=== PATIENT | male | born 1955 | race Caucasian/White ===

== ENCOUNTER → 2020-02-05 | Outpatient (CLI) | payer BC ==
[~2020-02-05] MED LIST: ACET65TA PO; ALLOPOW4 PO; ASPIRIN PO; BAYE325T12 PO; CARV25TA PO; CARVEDILOL PO; COUM1TAB17; COUM1TAB17 PO; DICL1GEL3 TOP; ELIQ5TAB PO; FURO20TA PO; FURO40TA2 PO; GABA-843 PO; LISINOPRIL PO; MAG-TAB PO; MAGN64TASA PO; NEUR300C PO; OXYC1CON PO; OXYC1TAB23 PO; PERC5TAB12 PO; PERC5TAB8; PRADAXA PO; PRIL20CA PO; PRIN10TA; SPIR-10 PO; SPIROLACTONE PO; ZEST1TAB4 PO; ZYLO300T6 PO
== END ==
LOC: M LABSMTC 11:02
PROVIDERS: ATTEND Anesthesiology
DX: Z01.812 Encounter for preprocedural laboratory examination (principal); Z20.828 Contact with and (suspected) exposure to other viral communicable diseases
CPT/HCPCS: C9803; U0003

== ENCOUNTER 2020-02-10 07:28 | Inpatient (IN) | payer MEDICARE ==
[2020-02-10] VITALS (7 sets, daily range): BP systolic 105–108; BP diastolic 65–69
[~2020-02-10] VITALS: Ht 177.8 cm; Wt 113.9 kg
[~2020-02-10 07:28] MED LIST changes: +LIDOCAINE 1% MDV 20ML VIAL SQ PRN; +LR 1,000 ML IV ONE; -PERC5TAB12 PO
[2020-02-10] MEDS ORDERED: fentaNYL 100 MCG/2 ML INJECTION (J3010) As Ordered ONE ×2 (08:11→08:32)
[2020-02-10] MEDS ORDERED: propofoL 500 MG/50 ML VIAL As Ordered ONE (08:11)
[2020-02-10] MEDS ORDERED: LIDOCAINE 2% 100MG/5ML SDV (FOR ANES.) As Ordered ONE (08:12)
[2020-02-10] MEDS ORDERED: dexameTHASONE 4 MG/ML 1ML VIAL (J1100 PER 1MG) As Ordered ONE ×3 (08:12→10:21)
[2020-02-10] MEDS ORDERED: MIDAZOLAM INJ 2MG/2ML VIAL (J2250 PER 1MG) As Ordered ONE ×2 (08:12→08:32)
[2020-02-10] MEDS ORDERED: ONDANSETRON 4MG/2ML VIAL As Ordered ONE (08:12)
[2020-02-10] MEDS ORDERED: ceFAZolin 2 GM/D5W 50 ML IV BAG (J0690 PER 500MG) As Ordered ONE (08:47)
[2020-02-10] MEDS ORDERED: VANCOMYCIN 1000MG/20ML VIAL As Ordered ONE (08:47)
[2020-02-10 08:54] LABS: HEMATOCRIT 41.5 % (42.0-52.0); HEMOGLOBIN 13.2 g/dl (13.5-17.5); MEAN CORPUSCULAR HEMOGLOBIN 32.3 pg (27.0-33.0); MEAN CORPUSCULAR HGB CONC 31.8 g/dl (32.0-36.5); MEAN CORPUSCULAR VOLUME 101.5 fl (80.0-96.0); PLATELET COUNT, AUTOMATED 170 10^3/uL (150-450); RED BLOOD COUNT 4.09 10^6/uL (4.30-6.10); WHITE BLOOD COUNT 5.1 10^3/uL (4.0-10.0)
[2020-02-10 09:06] LABS: ALBUMIN 3.7 GM/DL (3.2-5.2)
[2020-02-10] MEDS ORDERED: TRANEXAMIC ACID 100 MG/ML 10ML VIAL As Ordered ONE ×2 (09:16→12:17)
[2020-02-10] MEDS ORDERED: KETOROLAC 60MG 2ML VIAL As Ordered ONE (09:16)
[2020-02-10] MEDS ORDERED: BUPIVACAINE/EPIN 0.5% 30 ML VIAL As Ordered ONE (09:17)
[2020-02-10] MEDS ORDERED: ceFAZolin 1GM VIAL (J0690 PER 500MG) As Ordered ONE (09:17)
[2020-02-10 09:22] LABS: ERYTHROCYTE SEDIMENTATION RATE 22 mm/hr (0-20)
[2020-02-10 09:26] LABS: PROTHROMBIN TIME 13.4 SECONDS (11.8-14.0)
[2020-02-10 09:33] LABS: APPEARANCE, URINE CLEAR (CLEAR); BACTERIA, URINE AUTO 1+ (NEGATIVE); BILIRUBIN, URINE AUTO NEGATIVE (NEGATIVE); BLOOD, URINE BLOOD NEGATIVE (NEGATIVE); COLOR, URINE YELLOW (YELLOW); GLUCOSE, URINE (UA) AUTO NEGATIVE (NEGATIVE); KETONE, URINE AUTO NEGATIVE (NEGATIVE); LEUKOCYTE ESTERASE, URINE AUTO 1+ (NEGATIVE); MUCUS, URINE SMALL (NEGATIVE); NITRITE, URINE AUTO NEGATIVE (NEGATIVE); PROTEIN, URINE AUTO NEGATIVE (NEGATIVE); RBC, URINE AUTO 1 /HPF (0-3); SPECIFIC GRAVITY URINE AUTO 1.009 (1.002-1.035); SQUAMOUS EPITHELIAL CELL UR AU 2 /HPF (0-6); UROBILINOGEN, URINE AUTO 0.2 mg/dL (0.0-2.0); WBC, URINE AUTO 9 /HPF (0-3)
[2020-02-10] MEDS ORDERED: MORPHINE 2 MG/ML 1ML VIAL (J2270) As Ordered ONE (09:34)
[2020-02-10] MEDS ORDERED: VANCOMYCIN HCL 1,000 MG, VIAL MATE ADAPTER 1 EACH in D5W 250 ML IV ONE (10:00)
[2020-02-10] MEDS ORDERED: MORPHINE 2 MG/ML 1ML VIAL (J2270) IM ONE (10:00)
[2020-02-10] MEDS ORDERED: oxyCODONE 10 MG CR TAB PO ONE (10:00)
[2020-02-10] MEDS ORDERED: PREGABALIN 50 MG CAP (LYRICA) PO ONE (10:00)
[2020-02-10] MEDS ORDERED: ceFAZolin SOD 2 GM in IV 1 EA IV ONE (10:00)
[2020-02-10] MEDS ORDERED: ACETAMINOPHEN *IV* 1,000 MG IV ONE ×2 (10:00)
[2020-02-10] MEDS ORDERED: BUPIVACAINE/EPIN 0.25% 30 ML VIAL As Ordered ONE (10:06)
[2020-02-10 10:36] LABS: TOTAL 25(OH) VITAMIN D 22.5 NG/ML (30.0-100.0)
[2020-02-10] MEDS ORDERED: EPINEPHrine INJ 1 MG/ML 1ML AMP ONE (11:02)
[2020-02-10] MEDS ORDERED: dexameTHASONE 10MG/1ML VIAL PRES.FREE (J1100 PER 1MG) ONE (11:02)
[2020-02-10] MEDS ORDERED: ROPIvacaine 0.5% 30ML INJECTION (J2795 PER 1MG) ONE (11:02)
[2020-02-10] MEDS ORDERED: ACETAMINOPHEN 1000MG 100ML IV BTL (OFIRMEV) (J0131 PER 10MG) As Ordered ONE (11:47)
[2020-02-10] MEDS ORDERED: ONDANSETRON 4MG/2ML VIAL IV PRN ×2 (12:45)
[2020-02-10] MEDS ORDERED: MORPHINE 2 MG/ML 1ML VIAL (J2270) IV PRN ×2 (12:45)
[2020-02-10] MEDS ORDERED: fentaNYL 100 MCG/2 ML INJECTION (J3010) IV PRN (12:45)
[2020-02-10] MEDS ORDERED: traMADol 50 MG TAB PO PRN (12:45)
[2020-02-10] MEDS ORDERED: METOCLOPRAMIDE INJ 10MG/2ML VIAL (J2765 PER 1) IV PRN (12:45)
[2020-02-10] MEDS ORDERED: MORPHINE 4 MG/ML 1ML VIAL/SYRINGE (J2270) IV PRN (12:45)
[2020-02-10] MEDS ORDERED: LR 1,000 ML IV SCH ×2 (12:45)
[2020-02-10] MEDS ORDERED: oxyCODONE 5MG TAB PO PRN (12:45)
[2020-02-10] MEDS ORDERED: PERCOCET 5MG/325MG TAB PO PRN ×2 (12:45)
[2020-02-10 12:58] LABS: HEMOGLOBIN A1c 5.4 %
[2020-02-10] MEDS ORDERED: TRANEXAMIC ACID INJection 1,000 MG in NS 100 ML IV ONE (13:00)
--- NOTE | 2020-02-10 17:38 | HPEPDOC ---
General Date of Admission Feb 10, 2020 at 07:28 Date of Service: Feb 10, 2020 Attending Physician: CECILIO SCOTT MD Chief Complaint The patient is a 64-year-old male admitted with a reason for visit of Left Knee Osteoarthritis. Source: Patient Exam Limitations: No limitations History of Present Illness 64 yo M with a history of CAD, A fib on eliquis, HTN, morbid obesity, ABHISHEK not on CPAP, CHF, GERD and OA with history of multiple LE hip and knee replacements who is admitted postop L knee replacement and medicine is consulted for postop medical management. He is comfortable, without any complaints, pain is well cont rolled at this time. Home Medications Scheduled Allopurinol (Zyloprim) 300 Mg Tab, 300 MG PO DAILY, (Reported) Apixaban (Eliquis) 5 Mg Tablet, 5 MG PO BID, (Reported) Aspirin (Aspirin) 325 Mg Tablet, 325 MG PO DAILY, (Reported) Carvedilol (Carvedilol) 25 Mg Tab, 25 MG PO BID, (Reported) Diclofenac Sodium (Diclofenac Sodium) 1% 100GM Gel..gram., Unknown Dose TOP PRN, (Reported) Apply to area of pain Furosemide (Furosemide) 40 Mg Tab, 40 MG PO DAILY, (Reported) Gabapentin (Gabapentin) 300 Mg Capsule, 300 MG PO BID, (Reported) Spironolactone (Spironolactone) 25 Mg Tab, 12.5 MG PO DAILY, (Reported) Allergies Coded Allergies: midazolam (Verified Allergy, Unknown, states that he does not want to have due to memory loss effe, 02/07/20) Past Medical History Medical History morbid obesity CAD Afib on eliquis CHF HTN ABHISHEK, cannot tolerate CPAP GERD Surgical History L hip repair R hip repair x 2 laminectomy x 2 left heart catheterization Social History * Smoker: Denies Alcohol: Denies Drugs: denies Recent Travel/Sick Contacts: Reports: Recent travel Psychosocial History: No pertinent psych hx A-FIB/CHADSVASC A-FIB History Current/History of A-Fib/PAF?: Yes Current PO Anticoag Therapy: Yes Review of Systems Constitutional: Denies: Chills, Fever, Night Sweats Eyes: Denies: Pain, Vision change ENT: Denies: Head Aches, Ear Pain, Dysphagia Skin: Denies: Rash, Lesions, Breakdown Pulmonary: Denies: Dyspnea, Cough Cardiovascular: Denies: Chest Pain, Palpitations, Orthopnea, Paroxysmal Noc. Dyspnea, Lt Headedness Gastrointestinal: Denies: Nausea, Vomiting, Abdominal Pain, Diarrhea Genitourinary: Denies: Dysuria, Frequency, Incontinence, Retention Hematologic: Denies: Bruising, Bleeding Excessively Endocrine: Denies: Polydipsia, Polyphagia, Polyuria, Heat Intolerance, Cold Intolerance, Other Endocrine Sx Musculoskeletal: Reports: Joint Pain (L knee pain) Neurological: Denies: Weakness, Numbness, Change in speech, Confusion Psych: Reports: Mood Normal; Denies: Depression, Memory Issues Physical Examination General Exam: Positive: Alert, No Acute Distress, Other (obese) Eye Exam: Positive: PERRLA, Conjunctiva & lids normal, EOMI; Negative: Sclera icteric ENT Exam: Positive: Atraumatic, Mucous membr. moist/pink, Pharynx Normal Neck Exam: Positive: Supple; Negative: JVD, thyromegaly Chest Exam: Positive: Clear to auscultation, Normal air movement Heart Exam: Positive: Irregular Rhythm, Normal S1, Normal S2; Negative: Murmurs, Rubs Telemetry: Positive: Atrial fibrillation Abdomen Exam: Positive: Normal bowel sounds, Soft; Negative: Tenderness, Hepatospenomegaly Extremity Exam: Positive: Normal pulses, Other (L knee with post-op bandaging.); Negative: Clubbing, Cyanosis, Edema Skin Exam: Positive: Nl turgor and temperature; Negative: Breakdown, Lesion Neuro Exam: Positive: Normal Speech, Cranial Nerves 3-12 NL, Other (full strength in RLE and bilateral UE, while LLE was deferred post-op) Psych Exam: Positive: Mental status NL, Mood NL, Oriented x 3 Vital Signs Vital Signs Date Time Temp Pulse Resp B/P (MAP) Pulse Ox O2 Delivery O2 Flow Rate FiO2 02/10/20 14:15 97.3 87 15 106/65 (79) 100 Room Air 02/10/20 09:50 2 Laboratory Data Labs 24H Laboratory Tests 2 02/10/20 08:18: Nucleated Red Blood Cells % (auto) 0.0, Erythrocyte Sedimentation Rate 22H, Prothrombin Time 13.4, Prothromb Time International Ratio 1.00, Estimated Mean Plasma Glucose 108, Hemoglobin A1c 5.4, Albumin 3.7, 25-Hydroxy Vitamin D Total 22.5L 02/10/20 09:00: Urine Color YELLOW, Urine Appearance CLEAR, Urine pH 5.0, Urine Specific [place] 1.009, Urine Protein NEGATIVE, Urine Glucose (Auto)(UA) NEGATIVE, Urine Ketones (Auto) NEGATIVE, Urine Blood NEGATIVE, Urine Nitrite NEGATIVE, Urine Bilirubin NEGATIVE, Urine Urobilinogen 0.2, Urine Leukocyte Esterase (Auto) 1+H, Urine WBC (Auto) 9H, Urine RBC (Auto) 1, Urine Hyaline Casts (Auto) 4, Urine Bacteria (Auto) 1+H, Urine Squamous Epithelial Cells 2, Urine Mucus (Auto) SMALL, Urine Sperm (Auto) CBC/BMP Laboratory Tests 02/10/20 08:18 Microbiology Microbiology 02/10/20 Wound Culture, Received Pending 02/10/20 Anaerobic Culture, Received Pending Assessment/Plan 64 yo M with a history of CAD, A fib on eliquis, HTN, morbid obesity, ABHISHEK not on CPAP, CHF, GERD and OA with history of multiple LE hip and knee replacements who is admitted postop L knee replacement, doing well at this time. L knee osteoarthritis s/p total joint arthroplasty: -pain is well controlled at this time with both PO PRN percocet and tramadol ordered, as well as PRN IV morphine per primary surgery team -on full dose eliquis -PT/OT -surgery team is primary managing patient Afib: -continue home eliquis and beta kai that will be restarted tomorrow CHF: imagine it is HFrEF, patient actually confirmed that he had a recent preop TTE with Dr. Magaña where EF was 28% -currently holding daily loop diuretic post op, actually receiving fluids -will continue aldactone tomorrow morning, and make decision on loop diuretic then depending on renal function and BP -will plan to continue beta kai as well tomorrow morning GERD: -continue PPI ABHISHEK: -does not tolerate CPAP, if hypoxemic overnight, may offer supplemental O2 HTN: -continue coreg BID tomorrow Gout: -continue allopurinol, starting tomorrow DVT ppx: eliquis Plan / VTE VTE Prophylaxis Ordered?: Yes CECILIO SCOTT MD Feb 10, 2020 17:10
[2020-02-10] MEDS: ceFAZolin SOD 2 GM in IV 1 EA IV SCH (18:20)
[2020-02-11 02:00] VITALS: BP 109/64
[2020-02-11] MEDS: ceFAZolin SOD 2 GM in IV 1 EA IV SCH ×2 (03:05→09:40)
[2020-02-11] MEDS: ACETAMINOPHEN TAB 650MG DOSE (2X325MG) PO PRN ×2 (05:32→11:28)
[2020-02-11 06:00] VITALS: BP 124/76
[2020-02-11] MEDS ORDERED: PERC5TAB12 PO (06:01)
[2020-02-11 07:44] LABS: HEMATOCRIT 37.8 % (42.0-52.0); HEMOGLOBIN 12.4 g/dl (13.5-17.5); MEAN CORPUSCULAR HEMOGLOBIN 33.5 pg (27.0-33.0); MEAN CORPUSCULAR HGB CONC 32.8 g/dl (32.0-36.5); MEAN CORPUSCULAR VOLUME 102.2 fl (80.0-96.0); PLATELET COUNT, AUTOMATED 160 10^3/uL (150-450)
[2020-02-11 08:11] LABS: ALBUMIN 3.3 GM/DL (3.2-5.2); BILIRUBIN,TOTAL 0.5 MG/DL (0.2-1.0); CALCIUM LEVEL 8.8 MG/DL (8.8-10.2); CREATININE FOR GFR 1.83 MG/DL (0.70-1.30); GLOMERULAR FILTRATION RATE 39.6 (>49); POTASSIUM SERUM 4.2 MEQ/L (3.5-5.1); TOTAL PROTEIN 6.6 GM/DL (6.4-8.2)
[2020-02-11 09:00] VITALS: BP 107/61
[2020-02-11] MEDS ORDERED: dexameTHASONE 20MG/5ML VIAL (J1100 PER 1MG) IV ONE (09:00)
[2020-02-11] MEDS ORDERED: APIXABAN 5 MG TAB (ELIQUIS) PO SCH (09:00)
[2020-02-11] MEDS: CARVedilol 12.5 MG TAB PO SCH ×2 (09:00→09:38)
[2020-02-11] MEDS ORDERED: SPIRONOLACTONE 12.5MG PER 1/2 TABLET PO SCH (09:00)
[2020-02-11] MEDS ORDERED: allopurinoL 300 MG TAB PO SCH (09:00)
[2020-02-11] MEDS ORDERED: GABAPENTIN 300 MG CAP PO SCH (09:00)
--- NOTE | 2020-02-11 17:37 | IPNPDOC ---
Text Note Date of Service The patient was seen on 02/11/20. NOTE Physical Examination General: Obese, NAD Eye: PERRLA, Conjunctiva & lids normal, EOMI, anicteric ENT: Atraumatic, Mucous membr. moist/pink, Pharynx Normal Neck : Supple, no JVD or thyromegaly Chest: Clear to auscultation, Normal air movement Heart: Irregular Rhythm, Normal S1, Normal S2, no mrg Telemetry: Rate controlled Atrial fibrillation Abdomen : Obese, Normal bowel sounds, Soft, NTND Extremity: L knee with post-op strip bandaging, c/d/i, no oozing. No significant edema Neuro: Normal Speech, Cranial Nerves 3-12 NL Psych: Mental status NL, Mood NL, Oriented x 3 Labs: Reviewed. reactive WBC increase to 10, Cr at 1.93 per recent baseline. Assessment/Plan 64 yo M with a history of CAD, A fib on eliquis, HTN, morbid obesity, ABHISHEK not on CPAP, CHF, GERD and OA with history of multiple LE hip and knee replacements who is admitted postop L knee replacement, doing well at this time and being discharged home by surgery. L knee osteoarthritis s/p total joint arthroplasty: -pain is well controlled per primary surgery team -on full dose eliquis -PT/OT Afib: -continue home eliquis and beta kai CHF: imagine it is HFrEF, patient actually confirmed that he had a recent preop TTE with Dr. Magaña where EF was 28% -May continue aldactone and lasix on discharge GERD: -continue PPI ABHISHEK: -does not tolerate CPAP HTN: -continue coreg BID Gout: -continue allopurinol DVT ppx: eliquis VS,Fishbone, I+O VS, Fishbone, I+O Laboratory Tests 02/11/20 07:17 Vital Signs Date Time Temp Pulse Resp B/P (MAP) Pulse Ox O2 Delivery O2 Flow Rate FiO2 02/11/20 09:00 107/61 02/11/20 06:00 97.9 92 18 96 Room Air 02/10/20 09:50 2 I&O- Last 24 Hours up to 6 AM 02/11/20 06:00 Intake Total 1870 ml Output Total 900 ml Balance 970 ml CECILIO SCOTT MD Feb 11, 2020 17:37
--- NOTE | 2020-02-12 15:54 | IPN ---
DATE: 02/10/2020 Patient presents for a left total knee arthroplasty. This is a patient I am coordinating with [facility]. I was asked to partake in this patient's care due to severe valgus deformity of the patient's bilateral knees as well as prior knee surgeries. I last saw the patient in my office back in the summer of 2018, and the patient was indicated for bilateral knee arthroplasties. We decided to do these in stage fashion once the patient was medically optimized. The patient has since undergone medical optimization. In fact, he has been able to reduce his weight and lost about 70 pounds since I last saw him. He continues to have daily pain with his bilateral knees. Both are equally bad. Both knees have aching and throbbing sensations. He has difficulty ambulating short distances without significant pain and feelings that his knee is giving way and instability. Patient underwent medical optimizations, now optimized by both his primary care physician (PCP) as well as sales review clerk for surgery. Patient's surgery was originally also delayed due to the COVID-19 pandemic, and now that surgeries have restarted, we are proceeding to surgery. The patient's care is being coordinated with Dr. Fidel Garcia, who is his primary orthopedist. I have re-evaluated the patient today in the preoperative area. The patient continues to complain of daily pain with ambulation, and he is very much excited about proceeding to surgery. Patient's bilateral lower extremities were evaluated. Leg roll was negative bilaterally. Patient's bilateral knees were then evaluated. Range of motion was from 5 to about 100 degrees bilateral. There is a clinical valgus deformity. Patient had severe crepitus as well as pain throughout the entire range of motion. He had severe medial and lateral joint line pain. Bilateral calves were soft and nontender. Some vascular changes were present distally; however, these were not seen around his knees. Extensor hallucis longus (EHL), flexor hallucis longus (FHL), gastroc-soleus (GS), tibialis anterior (TA) were all intact. Preoperative labs were reviewed. Patient's white blood cell count is 5.1, hemoglobin 13.9, hematocrit 41.5. INR is 1.0. Images were reviewed. The patient has end-stage bilateral knee valgus osteoarthritis and prior screws from two prior patellar procedures. ASSESSMENT: Patient is a 64-year-old male with severe bilateral knee valgus osteoarthritis. PLAN: Patient was re-educated on his diagnosis. He was re-educated on protocol, activity modification further treatment with Tylenol, nonsteroidal anti-inflammatory drugs (NSAIDs), activity modifications, the appropriate use of corticosteroid injection limitation as well as the role of physical therapy. We discussed at length the risks and benefits of arthroplasty, including the risk of infection, which is heightened in this patient due to his prior surgeries. We discussed risk of blood clots, pulmonary emboli. We discussed the risk of stiffness, instability, patellar maltracking, patellar dislocations, aseptic loosening, septic loosening, nerve/vessel damage, persistent pain, increased pain, loss of function, stiffness, instability and need for repeat surgeries, possible loss of limb and/or life. The patient is willing to undergo surgery, and the surgery will be planned for later this morning. DUNCAN
[2020-02-18 01:12] LABS: COTININE <1.0 ng/mL (.); NICOTINE <1.0 ng/mL (.); TRANSFERRIN 222 mg/dL (177-329)
--- NOTE | 2020-03-01 16:33 | RO ---
DATE OF OPERATION: 02/10/2020 PREOPERATIVE DIAGNOSIS: Left knee valgus osteoarthritis POSTOPERATIVE DIAGNOSIS: Left knee valgus osteoarthritis FINDINGS: Severe valgus osteoarthritis of the patient's left knee. PROCEDURE: Left knee total knee arthroplasty and removal of prior knee hardware. SURGEON: Karla Rodas MD WASHING MACHINE OPERATOR: Otis Mayen MD ANESTHESIA: Staff ESTIMATED BLOOD LOSS: 50 ml DRAINS: None. POSTOP SPECIMEN: Bone cuts, as well as one culture from the screw that was removed. INDICATIONS FOR PROCEDURE: The patient is a 64-year-old male, who has bilateral knee end-stage osteoarthritis. The patient previously underwent patellar realignment surgery on both of his knees and has screws in both of his knees. The patient has failed conservative therapies and has been indicated by both his primary orthopedic surgeons, Dr. Fidel Garcia and myself in the arthroplasty. I was asked to partake in this patients care due to the extent of the patient's deformity. Dr. Fidel Garcia requested that I help with the patient's case due to my additional training in joint reconstructive surgery. PRESCRIPTION OF PROCEDURE: The patient was identified in preop area, site was marked and consent was obtained. The patient was brought into the operative theatre. Spinal anesthesia was administered and the patient was prepped and draped in the standard sterile fashion. A time-out was performed. It was confirmed that the patient received Ancef, vancomycin, TXA and Decadron. A tourniquet was insufflated and central incision was then made. Dissection was carried down to capsule and medial parapatellar arthrotomy was then performed. The knee was entered. The patient had tricompartmental end-stage osteoarthritis, ALC, PCL, medial and lateral menisci were resected. While I worked on this exposure, Dr. Mayen was able to localize the area of the screw, placed distal and medial to the patient's tibial tubercle and the screw was removed and then cultured. Attention was then turned to the femur. I entered the femur with a drill followed by an intramedullary drill guide. A 63 valgus cut was performed on the femur. Attention was then turned to the tibia. The tibia was cut taking 9 mm off the lesser affected medial side using extra measuring instrumentation. Extension gaps were then found to be stable with a 9 mm waffle block. Attention was then returned to the femur. The femur was sized to a size 6 femur and pinned in appropriate external rotation. Care was taken to not internally rotate due to the posterolateral condylar wear. A 6 femoral cut was then performed and flexion gap was also found to be stable with a 9 mm waffle block. The box cut was then performed. A trial femur was inserted. The tibia was incised to a size 6 tibia and the tibia was floated with a trial 9 tibia. I had excellent range of motion, excellent stability and adequate patellar tracking. However, I had mild recurvatum. This was then up-sized to an 11 poly; and with an 11 poly, the patient's range of motion was from 0 to 130 degrees with excellent stability throughout the entire range of motion and adequate patellar tracking. A small lateral release was then performed and patellar tracking was great. The patella was then resurfaced to a size 38 patella and with old trials and the knee had excellent range of motion, excellent stability and great patellar tracking. The tibia was then completed. I did opt to use a mini stem extension incase a TS insert would be needed due to the patient's valgus deformity, as well as trying to bypass the hole from the removal of the patient's screw. At that point, all trials were removed. The knee was thoroughly irrigated. The final implants were implanted in. My anesthetic cocktail was injected in the posterior capsule. Once the cement was about to cure, I retrial the poly and 11 poly was selected. A final 11 PS poly was inserted with all implants and the patient had excellent range of motion, excellent stability and great patellar tracking. The knee was then thoroughly re-irrigated. The capsule was closed with 1 Vicryl and 1 Quill suture. 2-0 Vicryl was used for subcutaneous and elsie were used for skin. The patient was placed in a standard sterile dressing and transferred back in stable condition. Implants: Implant [place] [employer] 6 PS femur, 6 universal tibia with a stem extension, 11 mm poly and a 38 asymmetric patella. Postoperative plan: The patient is weightbearing as tolerated. The patient will be placed back on his Eliquis for deep venous thrombosis (DVT) prophylaxis. The patients pain will be controlled with IV and oral pain medications. The patient is set for an expected discharge on postop day 1, versus postop day 2. He will be mobilized with physical therapy. MTDD
--- NOTE | 2020-03-06 10:58 | REP ---
LEFT KNEE SERIES CLINICAL: Postoperative assessment. TECHNIQUE: AP and cross-table lateral views of the left knee. FINDINGS: Patient is status post left knee replacement. Satisfactory position and appearance to the femoral and tibial components, Overlying postsurgical changes noted. IMPRESSION: Status post left knee replacement. MTDD
--- NOTE | 2020-03-06 12:53 | DSES ---
DATE OF ADMISSION: 02/10/2020 DATE OF DISCHARGE: 02/11/2020 ATTENDING: Dr. Evin Rodas. ADMITTING DIAGNOSIS: Osteoarthritis left knee. OTHER DIAGNOSES: Atrial fibrillation, coronary artery disease, hypertension, sleep apnea, congestive heart failure, gastric reflux disease. DISCHARGE DIAGNOSIS: Osteoarthritis left knee; status post left total knee arthroplasty. OPERATION PERFORMED: Left total knee arthroplasty. HISTORY OF PRESENT ILLNESS: This is a 64-year-old male patient with progressively worsening left knee pain and stiffness. He failed to improve with conservative management and was admitted for elective knee replacement on the left side. He subsequently underwent a left total knee arthroplasty, which was uneventful. He did well in the postoperative period and hospital course was without complication. He was up with physical therapy per their protocol as pain was controlled. On the day of discharge, he was weightbearing as tolerated on his left lower extremity. He will use DENNIS stockings for 30 days postoperatively for DVT prophylaxis. He will restart his Eliquis per his professional skater. He will also use that for DVT prophylaxis. He will resume his preoperative medications and diet. He will use oral pain medications for pain control. He will follow-up in our office in 10-14 days for surgical follow-up. Please refer to the medical record for further details. DUNCAN
== END 2020-02-11 12:30 | disposition home health service (06) | DRG 470 ==
LOC: M OR 07:28 → M MS5PR 14:10
PROVIDERS: ADMIT Student in an Organized Health Care Education/Training Program; ATTEND Student in an Organized Health Care Education/Training Program
PROC: 0SRD0JZ Replacement of Left Knee Joint with Synthetic Substitute, Open Approach (ICD-10-PCS; principal; 2020-02-10 09:00)
DX: M17.12 Unilateral primary osteoarthritis, left knee (principal); I25.10 Atherosclerotic heart disease of native coronary artery without angina pectoris; I48.91 Unspecified atrial fibrillation; Z79.01 Long term (current) use of anticoagulants; I11.0 Hypertensive heart disease with heart failure; E66.01 Morbid (severe) obesity due to excess calories; G47.33 Obstructive sleep apnea (adult) (pediatric); K21.9 Gastro-esophageal reflux disease without esophagitis; I50.9 Heart failure, unspecified; Z79.899 Other long term (current) drug therapy; Z79.82 Long term (current) use of aspirin; Z95.2 Presence of prosthetic heart valve; Z96.641 Presence of right artificial hip joint; Z96.642 Presence of left artificial hip joint; M10.9 Gout, unspecified

== ENCOUNTER → 2020-04-17 | Outpatient (CLI) | payer MEDICARE ==
[~2020-04-17] MED LIST changes: -LIDOCAINE 1% MDV 20ML VIAL SQ PRN; -LR 1,000 ML IV ONE; +PERC5TAB12 PO
[2020-04-17 12:14] LABS: HEMATOCRIT 38.9 % (42.0-52.0); HEMOGLOBIN 12.1 g/dl (13.5-17.5); MEAN CORPUSCULAR HEMOGLOBIN 32.1 pg (27.0-33.0); MEAN CORPUSCULAR HGB CONC 31.1 g/dl (32.0-36.5); MEAN CORPUSCULAR VOLUME 103.2 fl (80.0-96.0); PLATELET COUNT, AUTOMATED 187 10^3/uL (150-450); RED BLOOD COUNT 3.77 10^6/uL (4.30-6.10)
[2020-04-17 12:26] LABS: INR 1.2; PROTHROMBIN TIME 15.5 SECONDS (12.5-14.3)
[2020-04-17 12:40] LABS: ALBUMIN 3.5 GM/DL (3.2-5.2); BILIRUBIN,TOTAL 0.8 MG/DL (0.2-1.0); CALCIUM LEVEL 9.3 MG/DL (8.8-10.2); CREATININE FOR GFR 1.71 MG/DL (0.70-1.30); GLOMERULAR FILTRATION RATE 42.9 (>49); POTASSIUM SERUM 4.3 MEQ/L (3.5-5.1); TOTAL PROTEIN 6.6 GM/DL (6.4-8.2)
[2020-04-17 12:42] LABS: ERYTHROCYTE SEDIMENTATION RATE 25 mm/hr (0-20)
--- NOTE | 2020-04-17 14:39 | REP ---
INDICATION: PRE-OP. COMPARISON: September 11, 2014 TECHNIQUE: Two views.. FINDINGS: The lungs are symmetrically aerated and free of infiltrate. Pleural angles are sharp. Heart is mildly enlarged. Cardiothoracic ratio is 51.4%. The thoracic aorta is tortuous. There are degenerative changes in the thoracic spine. Pulmonary vasculature is not increased. IMPRESSION: Cardiomegaly. Otherwise no acute disease.. <Electronically signed by Rhys Wyatt > 04/17/20 [id number]
--- NOTE | 2020-04-17 18:12 | ECGEPIP ---
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: [facility] : 1955 Requested By: Fidel Cloud @ [facility] Order Number: [id number] Reading MD: Tuan Friedman Measurements Intervals [place] Rate: 78 P: CT: 0 QRS: -68 QRSD: 153 T: 76 QT: 408 QTc: 467 Interpretive Statements Atrial fibrillation with a controlled ventricular response Left anterior fascicular block and right bundle branch block Associated repolarization abnormalities No significant change except for a slower ventricular response, when compared to prior tracing of 09/11/2014 Electronically Signed on 04-17-2020 18:11:34 EST by Tuan Friedman
== END ==
LOC: M LAB 11:18
PROVIDERS: ATTEND Orthopaedic Surgery
DX: Z01.818 Encounter for other preprocedural examination (principal); M17.11 Unilateral primary osteoarthritis, right knee; I51.7 Cardiomegaly

== ENCOUNTER → 2020-04-22 | Outpatient (CLI) | payer MEDICARE | LOC: M LABSMTC 09:12 | PROVIDERS: ATTEND Anesthesiology | DX: Z01.812 Encounter for preprocedural laboratory examination (principal); Z20.828 Contact with and (suspected) exposure to other viral communicable diseases ==

== ENCOUNTER 2020-04-27 10:45 | Inpatient (IN) | payer MEDICARE ==
--- NOTE | 2020-04-26 11:40 | HPE ---
DATE OF ADMISSION: 04/27/2020 ATTENDING PHYSICIAN: Dr. Rodas CHIEF COMPLAINT:: Right knee pain. HISTORY OF PRESENT ILLNESS: Mr. Mendes is a pleasant 64-year-old male with progressively worsening right knee pain and stiffness. He has failed to improve with conservative treatment. He has elected for surgery for his continued symptoms. He has pain with weightbearing activities and his activities of daily living. X-rays of his knee are notable for advanced osteoarthritis of the right knee joint. He has consented for a right total hip arthroplasty by Dr. Rodas. Medical optimization was performed by Dr. Gibson. ALLERGIES: No known drug allergies. CURRENT MEDICATIONS: Carvedilol, Eliquis, gabapentin, furosemide, and spironolactone. MEDICAL HISTORY: 1. Mild high blood pressure. 2. Atrial fibrillation. SURGICAL HISTORY: 1. Lumbar laminectomies in 1988 and 1994. 2. Left and right hip replacement. 3. Knee meniscectomies, bilateral, 1969 and 1970. 4. Left total knee replacement in February of this year. SOCIAL HISTORY: This gentleman is retired. He does not smoke. Rarely drinks alcohol. FAMILY HISTORY: Noncontributory. REVIEW OF SYSTEMS: This patient denies chest pain, heart palpitations, cough, wheezing, difficulty breathing, and shortness of breath. He denies abdominal pain, nausea, vomiting, diarrhea, or constipation. He denies recent upper respiratory infection or urinary tract infection symptoms. He does complain of persistent pain in the right knee. PHYSICAL EXAMINATION: GENERAL: He is a well-nourished, well-developed, in no acute distress alert male patient. He ambulates with a significant limp favoring the right lower extremity. He uses a rolling walker. VITAL SIGNS: He is 5 feet 8-1/2 inches tall, weighs 246.2 pounds. Temperature 96.2, blood pressure 115/70, pulse 63, respirations 12. NECK: Supple without adenopathy or jugular venous distention. No carotid bruits appreciated upon auscultation. LUNGS: Clear to auscultation without rales or wheeze throughout. HEART: Irregular rate and rhythm. ABDOMEN: Bowel sounds were present. EXTREMITIES: Examination of the knee reveals well-healed surgical scar from his radical meniscectomy in the . Otherwise, the skin was intact. He had decreased range of motion due to pain and stiffness. The limb is neurovascularly intact. LABORATORY DATA: EKG showed atrial fibrillation at 96 beats per minute. Chest x-ray showed cardiomegaly; otherwise no acute cardiopulmonary disease processes. Protime 15.5, INR 1.20. Glucose 92, BUN 43, creatinine 1.71. CBC showed red count of 3.77, hemoglobin 12.1, hematocrit 38.9, MCV 103.2, mean corpuscular hemoglobin concentration of 31.1, otherwise within normal limits. with a sedimentation rate of 25. IMPRESSION: Symptomatic osteoarthritis of the right knee joint. PLAN: Consented for a right total knee arthroplasty by Dr. Rodas. ayana CelayaAdena Fayette Medical CenterJocelin
[~2020-04-27] VITALS: Ht 177.8 cm; Wt 111.1 kg
[~2020-04-27 10:45] MED LIST changes: +CelecoXIB 400 MG CAP PO ONE; +LIDOCAINE 1% MDV 20ML VIAL SQ PRN; +LR 1,000 ML IV ONE; +PERCOCET 5MG/325MG TAB PO ONE; +PREGABALIN 75 MG CAP(LYRICA) PO ONE; +ceFAZolin SOD 1 GM in D5W MINI-BAG PLUS 50 ML IV ONE; +ceFAZolin SOD 2 GM in IV 1 EA IV ONE; +fentaNYL 100 MCG/2 ML INJECTION (J3010) IV PRN
[2020-04-27] MEDS ORDERED: ceFAZolin 1GM VIAL (J0690 PER 500MG) As Ordered ONE (10:51)
[2020-04-27] MEDS ORDERED: TRANEXAMIC ACID 100 MG/ML 10ML VIAL As Ordered ONE (12:21)
[2020-04-27] MEDS ORDERED: dexameTHASONE 4 MG/ML 1ML VIAL (J1100 PER 1MG) As Ordered ONE (12:22)
[2020-04-27] MEDS ORDERED: KETOROLAC 60MG 2ML VIAL As Ordered ONE (12:22)
[2020-04-27] MEDS ORDERED: BUPIVACAINE LIPOSOME/PF 1.3% 20ML VIAL (13.3MG/ML)(EXPAREL)(C9290 PER1MG) As Ordered ONE (12:23)
[2020-04-27] MEDS ORDERED: fentaNYL 100 MCG/2 ML INJECTION (J3010) As Ordered ONE (12:24)
[2020-04-27] MEDS ORDERED: ROPIvacaine 0.5% 30ML INJECTION (J2795 PER 1MG) XX ONE (12:30)
[2020-04-27] MEDS ORDERED: dexameTHASONE 10MG/1ML VIAL PRES.FREE (J1100 PER 1MG) XX ONE (12:30)
[2020-04-27] MEDS ORDERED: EPINEPHrine INJ 1 MG/ML 1ML AMP XX ONE (12:30)
[2020-04-27] MEDS ORDERED: VANCOMYCIN 1000MG/20ML VIAL As Ordered ONE (12:59)
[2020-04-27] MEDS ORDERED: ACETAMINOPHEN 500 MG TAB PO ONE (13:00)
[2020-04-27] MEDS ORDERED: ACETAMINOPHEN 1000MG 100ML IV BTL (OFIRMEV) (J0131 PER 10MG) As Ordered ONE (13:42)
[2020-04-27] MEDS ORDERED: PHENYLephrine HCL 500 MCG/5 ML (100MCG/ML) SYRINGE (J2370) As Ordered ONE ×3 (13:45→14:24)
[2020-04-27] MEDS ORDERED: dexameTHASONE 10MG/1ML VIAL PRES.FREE (J1100 PER 1MG) IV ONE (14:00)
[2020-04-27] MEDS ORDERED: LR 1,000 ML IV SCH ×2 (15:30→15:45)
[2020-04-27] MEDS ORDERED: MORPHINE 2 MG/ML 1ML VIAL (J2270) IV PRN (15:30)
[2020-04-27] MEDS ORDERED: oxyCODONE 5MG TAB PO PRN (15:30)
[2020-04-27] MEDS ORDERED: ONDANSETRON 4MG/2ML VIAL IV PRN ×2 (15:30→16:00)
[2020-04-27] MEDS ORDERED: fentaNYL 100 MCG/2 ML INJECTION (J3010) IV PRN (15:30)
[2020-04-27] MEDS ORDERED: METOCLOPRAMIDE INJ 10MG/2ML VIAL (J2765 PER 1) IV PRN (15:30)
[2020-04-27] MEDS ORDERED: traMADol 50 MG TAB PO PRN (15:45)
[2020-04-27] MEDS ORDERED: TRANEXAMIC ACID 100 MG/ML 10ML VIAL IV ONE (15:45)
[2020-04-27] MEDS ORDERED: PERCOCET 5MG/325MG TAB PO PRN ×2 (15:45)
[2020-04-27] MEDS ORDERED: PROMETHAZINE INJ 25 MG/ML VIAL (J2550) IV PRN (16:00)
--- NOTE | 2020-04-27 16:08 | REP ---
INDICATION: POST OP IN PACU COMPARISON: None TECHNIQUE: Two portable postoperative views FINDINGS: The femoral and tibial components of the knee prosthesis are well seated and well approximated. The alignment is near anatomical. There is expected postoperative soft tissue swelling and air densities. IMPRESSION: As above <Electronically signed by Matt Hilliard > 04/27/20 [id number]
[2020-04-27 17:00] VITALS: BP 112/74
[2020-04-27 17:30] VITALS: BP 112/74
[2020-04-27 18:24] VITALS: BP 115/74
--- NOTE | 2020-04-27 18:42 | CR.PDOC ---
General Date of Consultation: Apr 27, 2020 Consultation Chief complaint: Presented to [facility] for elective right knee arthroplasty History of present illness: Patient is a 64-year-old male with a PMHx of HTN, A. fib (on Eliquis), Chronic CHF, Neuropathy who presented to [facility] for an elective right knee arthroplasty. Patient has received outpatient medical clearance from his primary care provider, Dr. Gibson. Hospitalist service was consulted for medical management postoperatively. Currently patient denies any chest pain, shortness of breath, palpitations, nausea, vomiting, abdominal pain, constipation, diarrhea, or urinary discomfort. Patient denies any recent fevers or chills. Past Medical History: HTN, A. 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 Review of Systems: 10 point review of systems complete, all negative otherwise stated in HPI Physical exam: - Vitals: BP [115/74], HR [77], RR [18], Sat [98%RA], Temp [98.4F] - General: Lying in bed, No acute distress, Speaking in full sentences, AAOx3 - HEENT: NC, AT, PERRLA - CVS: RRR, - Murmurs / rubs / gallops - Lungs: Fair air entry bilaterally, No appreciable wheezing / rales / rhonchi - Abdomen: Soft, Non-distended, Non-tender - Extremities: No lower extremity edema, No calf tenderness - Neuro: No focal motor or sensory deficit - Skin: No visible rashes Assessment and Plan: Elective total right knee arthroplasty (POD#0) - Presented to [facility] for elective orthopedic procedure - As received outpatient medical clearance from his primary care provider - Pain control, anticoagulation and physical therapy at the direction of orthopedic surgery HTN - Blood pressure well controlled - Continue with carvedilol with holding parameters - Will resume diuretic therapy within the next 24 hours A. fib - Will continue with rate control with carvedilol with holding parameters - Will resume Eliquis as per orthopedic surgery within 24 hours Chronic CHF - Currently does not exhibit any signs of fluid overload - Will discontinue IV fluids - Will check renal function in AM - Will resume diuretic therapy within the next 24 hours Neuropathy - c/w Gabapentin DVT prophylaxis - As per orthopedic surgery Vital Signs/I&O Vital Signs Date Time Temp Pulse Resp B/P (MAP) Pulse Ox O2 Delivery O2 Flow Rate FiO2 04/27/20 18:24 98.4 77 18 115/74 (88) 98 Room Air 04/27/20 12:40 2 Allergies Coded Allergies: midazolam (Verified Adverse Reaction, Mild, states that he does not want to have due to memory loss effe, 04/26/20) Home Medications Scheduled Allopurinol (Zyloprim) 300 Mg Tab, 300 MG PO DAILY, (Reported) Apixaban (Eliquis) 5 Mg Tablet, 5 MG PO BID, (Reported) Carvedilol (Carvedilol) 25 Mg Tab, 25 MG PO BID, (Reported) Diclofenac Sodium (Diclofenac Sodium) 1% 100GM Gel..gram., Unknown Dose TOP PRN for 5 Days, #1 (Reported) Apply to area of pain Furosemide (Furosemide) 40 Mg Tab, 40 MG PO DAILY, (Reported) Spironolactone (Spironolactone) 25 Mg Tab, 12.5 MG PO DAILY, (Reported) Scheduled PRN Gabapentin (Gabapentin) 300 Mg Capsule, 300 MG PO BIDP PRN for PAIN, (Reported) BRADY SHEPPARD MD Apr 27, 2020 18:42
[2020-04-27] MEDS ORDERED: SULF1TAB93 PO (19:08)
[2020-04-27] MEDS ORDERED: MUPI2OI TOP (19:08)
[2020-04-27] MEDS ORDERED: VITA50005 PO (19:08)
[2020-04-27 19:30] VITALS: BP 89/51
[2020-04-27 20:30] VITALS: BP 89/55
[2020-04-27] MEDS: ceFAZolin SOD 1 GM in D5W MINI-BAG PLUS 50 ML IV SCH (20:46)
[2020-04-27] MEDS ORDERED: GABAPENTIN 300 MG CAP PO PRN (21:00)
[2020-04-27 21:30] VITALS: BP 94/60
[2020-04-27] MEDS: ceFAZolin SOD 2 GM in IV 1 EA IV SCH (22:02)
[2020-04-28 02:00] VITALS: BP 102/70
[2020-04-28] MEDS: ceFAZolin SOD 1 GM in D5W MINI-BAG PLUS 50 ML IV SCH (03:16)
[2020-04-28] MEDS: ceFAZolin SOD 2 GM in IV 1 EA IV SCH (04:22)
[2020-04-28] MEDS: ACETAMINOPHEN TAB 650MG DOSE (2X325MG) PO PRN ×2 (04:23→12:59)
[2020-04-28 06:00] VITALS: BP 102/72
[2020-04-28] MEDS ORDERED: TRAM50TA2 PO (06:11)
[2020-04-28] MEDS ORDERED: ELIQ2.5T PO (06:11)
[2020-04-28] MEDS ORDERED: PERC5TAB12 PO (06:11)
[2020-04-28 06:45] LABS: HEMATOCRIT 35.6 % (42.0-52.0); HEMOGLOBIN 11.1 g/dl (13.5-17.5); MEAN CORPUSCULAR HEMOGLOBIN 31.9 pg (27.0-33.0); MEAN CORPUSCULAR HGB CONC 31.2 g/dl (32.0-36.5); MEAN CORPUSCULAR VOLUME 102.3 fl (80.0-96.0); PLATELET COUNT, AUTOMATED 169 10^3/uL (150-450); RED BLOOD COUNT 3.48 10^6/uL (4.30-6.10); WHITE BLOOD COUNT 9.1 10^3/uL (4.0-10.0)
[2020-04-28 06:54] LABS: INR 0.98; PROTHROMBIN TIME 13.2 SECONDS (12.5-14.3)
[2020-04-28 07:21] LABS: ALBUMIN 2.9 GM/DL (3.2-5.2); BILIRUBIN,TOTAL 0.3 MG/DL (0.2-1.0); CALCIUM LEVEL 8.3 MG/DL (8.8-10.2); CREATININE FOR GFR 2.21 MG/DL (0.70-1.30); GLOMERULAR FILTRATION RATE 31.9 (>49); MAGNESIUM LEVEL 2.1 MG/DL (1.8-2.4); POTASSIUM SERUM 4.8 MEQ/L (3.5-5.1); TOTAL PROTEIN 6.1 GM/DL (6.4-8.2)
[2020-04-28] MEDS ORDERED: SPIR-10 PO (08:16)
[2020-04-28] MEDS ORDERED: FURO40TA2 PO (08:16)
[2020-04-28] MEDS ORDERED: MIRALAX *UNIT DOSE* 17GM PACKET PO SCH (09:00)
[2020-04-28] MEDS ORDERED: allopurinoL 300 MG TAB PO SCH (09:00)
[2020-04-28] MEDS ORDERED: APIXABAN 2.5 MG TAB (ELIQUIS) PO SCH (09:00)
[2020-04-28] MEDS ORDERED: MOM 30ML SUSPENSION UDC PO SCH (09:00)
[2020-04-28] MEDS ORDERED: CARVedilol 12.5 MG TAB PO SCH (09:00)
[2020-04-28 09:45] VITALS: BP 104/71
[2020-04-28 10:00] VITALS: BP 124/82
--- NOTE | 2020-04-28 11:02 | IPNPDOC ---
Text Note Date of Service The patient was seen on 04/28/20. NOTE Subjective: Patient is a 64-year-old male with a PMHx of HTN, A. fib (on Eliquis), Chronic CHF, Neuropathy who presented to [facility] for an elective right knee arthroplasty. Patient has received outpatient medical clearance from his primary care provider, Dr. Gibson. Hospitalist service was consulted for medical management postoperatively. Patient was seen and examined at the bedside. Currently patient has had an uneventful evening. He denies any nausea, vomiting, chest pain, shortness of breath. Has not experienced any bowel movements but did report passing status. Denies any urinary discomfort, has been out of bed and able to ambulate. Objective: Vitals (See below) General: Lying in bed, comfortable, AAOx3 HEENT: NC, AT CVS: RRR, +S1S2 Lungs: Fair air entry b/l, no appreciable wheezing, rhonchi or rales Abdomen: Soft, nondistended and nontender Extremities: No edema appreciated, right knee with Nicolas wrap in place, - Calf tenderness Assessment and plan: Elective total right knee arthroplasty (POD#1) - Presented to [facility] for elective orthopedic procedure - As received outpatient medical clearance from his primary care provider - Pain control, anticoagulation and physical therapy at the direction of orthopedic surgery Elevated Cr on CKD3 - Baseline creatinine of 1.7-1.8 - Current creatinine of 2.3 - Patient has been advised of refraining from any nephrotoxic medications including NSAIDs; patient reports that he is already compliant with this - Will hold diuretic therapy for the next 2 days - Have outpatient follow-up for blood work on 05/01/2020 HTN - Blood pressure well controlled - Continue with carvedilol with holding parameters - Will continue to hold diuretic therapy and resume on 04/30/2020 A. fib - Will continue with rate control with carvedilol with holding parameters - Will c/w Eliquis as per orthopedic surgery today (half dose today and full dose starting tomorrow) Chronic CHF - Currently does not exhibit any signs of fluid overload - s/p IV fluids - Cr elevated from baseline - Will resume diuretic therapy on Thursday - Will repeat basic metabolic panel on 05/01/2020 Neuropathy - c/w Gabapentin DVT prophylaxis - As per orthopedic surgery Disposition: - Anticipate DC home today VS,Fishbone, I+O VS, Fishbone, I+O Laboratory Tests 04/28/20 06:35 Vital Signs Date Time Temp Pulse Resp B/P (MAP) Pulse Ox O2 Delivery O2 Flow Rate FiO2 04/28/20 10:00 98.1 103 18 124/82 (96) 98 Room Air 04/27/20 12:40 2 I&O- Last 24 Hours up to 6 AM 04/28/20 06:00 Intake Total 2700 ml Output Total 0 ml Balance 2700 ml BRADY SHEPPARD MD Apr 28, 2020 11:02
[2020-04-28 14:00] VITALS: BP 116/79
--- NOTE | 2020-04-30 11:00 | RO ---
DATE OF OPERATION: 04/27/2020 PREOPERATIVE DIAGNOSIS: Right knee posttraumatic osteoarthritis. POSTOPERATIVE DIAGNOSIS: Right knee posttraumatic osteoarthritis. FINDINGS: Right knee end-stage osteoarthritis. PROCEDURE: Total knee arthroplasty and removal of hardware. SURGEON: Karla Rodas MD PROFESSOR OF THEOLOGY: Eduardo Erwin PA-C ANESTHESIA: Spinal. SPECIMEN: Bone cuts. EBL: 50 mL. DRAINS: None. COMPLICATIONS: None. IMPLANTS: [place] Tri[employer]lon Knee System, 6 PS femur, 9 PS poly, 6 universal baseplate with mini stem extension and 38 asymmetric patella. INDICATIONS FOR PROCEDURE: The patient is a 64-year-old male who is well known to me. He has previously been treated extensively in conservative fashion. The patient has a prior history of Sylvain patellofemoral realignment procedure. The patient has over the years developed end-stage posttraumatic arthritis which has been affecting his activities of daily living. The patient opted for operative intervention. The patient previously underwent contralateral knee arthroplasty that I performed 10 weeks prior which is currently doing well. DESCRIPTION OF PROCEDURE: The patient was identified in the preoperative area, site was marked, consent was obtained. The patient was brought into the operating theater, spinal anesthesia was administered and the patient also received an adductor block. Time out was performed during which I confirmed that the patient received Ancef, Vancomycin, TXA, and Decadron. The tourniquet was insufflated. Central incision was then made. This was followed by medial parapatellar arthrotomy. After that the patellar fat pad was resected as well as femoral fat pad. The incision was extended more distally and some time was taken to identify the screw head. Using a screwdriver the screw was removed. At that point once the removal of the hardware was completed I returned to the total knee reconstruction. The patients knee was inspected and had end-stage tricompartmental osteoarthritis. Using intramedullary instrumentation the femur was prepared, taking 10 mm off the distal femur and 6-degree valgus cut. Attention was turned to the tibia. Taking 2 mm off the lesser affected medial side the tibia was cut using intramedullary instrumentation. Once I was satisfied with my flat tibial cut a waffle block was used to confirm appropriate extension and this was slightly tight. However, I then did hold off on further cuts until I completed the femur. The femur was sized to size 6 femur and four-in-one cutting guide was applied in appropriate external rotation using both posterior condyles which did not have significant wear as well as medial epicondylar axis and __ sides aligned for guidance. The four-in-one cut was then performed. At that point I was able to reach the osteophytes behind the patients femur and these were resected and posterior capsular release was also performed. A waffle block was then used and I had appropriate balancing with 9 waffle block to varus and valgus stressing in both extension and flexion. Box cut was then performed. I also resected the remnants of the ACL, PCL and medial and lateral menisci. The tibia was sized to size 6 tibia and was pinned in appropriate external rotation. This was then trialed and the patient had excellent range of motion from 0 to 120 degrees without any varus or valgus instability the entire range of motion, the patella tracked well with just very delicate one finger pressure. The patella was then resurfaced with 36 asymmetric patella and with patellar trialing and a stitch the knee had excellent patellar tracking, excellent range of motion and excellent stability. The trials were then removed. The tibia was completed, the knee was prepared for cementing. Due to the patients increased weight I did opt for mini stem extension. While the knee was thoroughly irrigated and prepared for cementing the components were constructed on the back table and components were cemented in with trial 9 poly. Once I was satisfied that the cement was cured the knee was again retested to excellent results with excellent range of motion, stability as well as patellar tracking. Anesthetic medication was then injected into the posterior capsule. A final 9 polyethylene which is a PS polyethylene was then inserted. The patients knee was again ranged and had excellent range of motion, excellent stability and excellent patellar tracking. The arthrotomy was then closed after thorough irrigation which included 3 minute dilute Betadine soak. This was closed with #1 Vicryl in Stratafix type suture, 2-0 Vicryl was used for subcu, 3-0 Stratafix was used for the skin. The patient was put into [place] Tape and Dermabond and sterile dressing and transported to PACU in stable condition. POSTOPERATIVE PLAN: The patient will be on Eliquis for DVT prophylaxis. The patients dose upon discharge will be readjusted to his home dose which is 5 mg twice daily. In the hospital he will be on 2.5 mg twice daily. The patient is weightbearing as tolerated and will be in minor pain control category. MTDD
== END 2020-04-28 15:19 | disposition home health service (06) | DRG 470 ==
LOC: M OR 10:45 → M MS5PR 16:50
PROVIDERS: ADMIT Student in an Organized Health Care Education/Training Program; ATTEND Student in an Organized Health Care Education/Training Program
PROC: 0SRC06A Replacement of Right Knee Joint with Oxidized Zirconium on Polyethylene Synthetic Substitute, Uncemented, Open Approach (ICD-10-PCS; principal; 2020-04-27 12:45)
DX: M17.11 Unilateral primary osteoarthritis, right knee (principal); Z96.643 Presence of artificial hip joint, bilateral; Z96.652 Presence of left artificial knee joint; I50.9 Heart failure, unspecified; I48.91 Unspecified atrial fibrillation; Z79.01 Long term (current) use of anticoagulants; I11.0 Hypertensive heart disease with heart failure; G62.9 Polyneuropathy, unspecified; Z88.8 Allergy status to other drugs, medicaments and biological substances; Z79.899 Other long term (current) drug therapy

== ENCOUNTER → 2020-05-01 | Outpatient (REF) | payer MEDICARE ==
[~2020-05-01] MED LIST changes: -CelecoXIB 400 MG CAP PO ONE; +ELIQ2.5T PO; -LIDOCAINE 1% MDV 20ML VIAL SQ PRN; -LR 1,000 ML IV ONE; +MUPI2OI TOP; -PERCOCET 5MG/325MG TAB PO ONE; -PREGABALIN 75 MG CAP(LYRICA) PO ONE; +SULF1TAB93 PO; +TRAM50TA2 PO; +VITA50005 PO; -ceFAZolin SOD 1 GM in D5W MINI-BAG PLUS 50 ML IV ONE; -ceFAZolin SOD 2 GM in IV 1 EA IV ONE; -fentaNYL 100 MCG/2 ML INJECTION (J3010) IV PRN
[2020-05-01 13:51] LABS: CREATININE FOR GFR 1.45 MG/DL (0.70-1.30); GLOMERULAR FILTRATION RATE 51.8 (>49); POTASSIUM SERUM 4.7 MEQ/L (3.5-5.1)
== END ==
LOC: M SHH 12:50
PROVIDERS: ATTEND Internal Medicine
DX: N18.30 Chronic kidney disease, stage 3 unspecified (principal)

== ENCOUNTER → 2020-06-07 | Outpatient (CLI) | payer MEDICARE | LOC: M LABSMTC 11:48 | PROVIDERS: ATTEND Orthopaedic Surgery | DX: Z01.812 Encounter for preprocedural laboratory examination (principal); Z20.828 Contact with and (suspected) exposure to other viral communicable diseases ==

== ENCOUNTER → 2021-12-05 | Outpatient (CLI) | payer MEDICARE ==
[~2021-12-05] MED LIST changes: +BACTDSTA PO; +ERGO500029 PO; +GABA-282 PO; -GABA-843 PO; -SULF1TAB93 PO; -VITA50005 PO
== END ==
LOC: M RAD 10:37
PROVIDERS: ATTEND Surgery
DX: L97.312 Non-pressure chronic ulcer of right ankle with fat layer exposed (principal); I73.9 Peripheral vascular disease, unspecified

== ENCOUNTER 2022-01-24 22:03 | Inpatient (IN) | payer MEDICARE, BC ==
[~2022-01-24] VITALS: Ht 177.8 cm; Wt 135.0 kg
[2022-01-24] MEDS ORDERED: SANT250O8 TOP (22:14)
[2022-01-24] MEDS ORDERED: AMOX500C PO (22:18)
[2022-01-24 22:53] LABS: BACTERIA, URINE LARGE AMOUNT; HYALINE CAST, URINE NONE SEEN /lpf (0-1); RBC, URINE TNTC /hpf (0-3); SQUAMOUS EPITHELIAL CELL URINE SMALL AMOUNT /hpf (SMALL AMT)
[2022-01-24] MEDS ORDERED: LIDOCAINE 2% 5ML JELLY UROJET TOP ONE (23:35)
[2022-01-24] MEDS ORDERED: ISOVUE-370 76% 100ML VIAL As Ordered ONE (23:53)
[2022-01-25] VITALS (15 sets, daily range): BP systolic 92–119; BP diastolic 50–98
[2022-01-25 00:19] LABS: BASO # 0.1 10^3/uL (0.0-0.2); BASO % 0.3 % (0.0-1.0); EOS # 0.1 10^3/uL (0.0-0.5); EOS % 0.6 % (0.0-3.0); HEMATOCRIT 40.7 % (42.0-52.0); HEMOGLOBIN 12.9 g/dl (13.5-17.5); LYMPH # 0.6 10^3/uL (1.5-5.0); LYMPH % 3.8 % (24.0-44.0); MEAN CORPUSCULAR HEMOGLOBIN 31.9 pg (27.0-33.0); MEAN CORPUSCULAR HGB CONC 31.7 g/dl (32.0-36.5); MEAN CORPUSCULAR VOLUME 100.7 fl (80.0-96.0); MONO # 0.9 10^3/uL (0.0-0.8); NEUTROPHILS # 13.5 10^3/uL (1.5-8.5); NEUTROPHILS % 87.1 % (36.0-66.0); PLATELET COUNT, AUTOMATED 353 10^3/uL (150-450); RED BLOOD COUNT 4.04 10^6/uL (4.30-6.10); WHITE BLOOD COUNT 15.5 10^3/uL (4.0-10.0)
[2022-01-25 00:51] LABS: ALBUMIN 2.3 GM/DL (3.2-5.2); BILIRUBIN,DIRECT 0.4 MG/DL (0.0-0.2); BILIRUBIN,TOTAL 0.6 MG/DL (0.2-1.0); TOTAL PROTEIN 6.6 GM/DL (6.4-8.2)
[2022-01-25] MEDS ORDERED: MORPHINE 4 MG/ML 1ML VIAL/SYRINGE IV ONE (01:05)
[2022-01-25] MEDS ORDERED: IPRATROPIUM 0.5MG/ALBUTEROL 2.5MG INH SOL UD 3ML (DUONEB) NEB ONE (01:15)
[2022-01-25] MEDS ORDERED: NS 500 ML IV ONE (01:20)
[2022-01-25 01:33] LABS: RBC, URINE TNTC /hpf (0-3)
[2022-01-25 01:34] LABS: SQUAMOUS EPITHELIAL CELL URINE SMALL AMOUNT /hpf (SMALL AMT)
[2022-01-25 01:35] LABS: BACTERIA, URINE MOD AMOUNT; HYALINE CAST, URINE NONE SEEN /lpf (0-1)
[2022-01-25] MEDS ORDERED: METOPROLOL 5 MG/5 ML VIAL IV STA (01:36)
[2022-01-25] MEDS ORDERED: LEVALBUTEROL 1.25 MG/0.5 ML CONCENTRATE NEB NEB ONE (01:55)
[2022-01-25 01:57] LABS: RSV AMPLIFICATION NEGATIVE (NEGATIVE)
[2022-01-25 02:12] LABS: VENOUS HCO3 22.3 MEQ/L (23.0-27.0); VENOUS O2 SATURATION 49.6 % (60.0-80.0); VENOUS PARTIAL PRESSURE O2 28.6 mmHg (30.0-50.0); VENOUS PH 7.312 UNITS (7.330-7.430); VENOUS STANDARD HCO3 20.2 MEQ/L; VENOUS TOTAL CO2 23.6 MEQ/L (24.0-28.0)
[2022-01-25 02:47] LABS: CK-MB VALUE MASS 2.4 NG/ML (<3.6); MB/CK RELATIVE INDEX 6.32 (< OR =4)
[2022-01-25] MEDS ORDERED: cefTRIAXone SOD 2 GM in D5W MINI-BAG PLUS 50 ML IV ONE (03:15)
[2022-01-25] MEDS ORDERED: CARVedilol 12.5 MG TAB PO ONE (03:35)
[2022-01-25] MEDS ORDERED: ACET-897 PO (04:06)
[2022-01-25] MEDS ORDERED: JARD1TAB PO (04:06)
[2022-01-25] MEDS ORDERED: FURO40TA2 PO (04:06)
[2022-01-25] MEDS ORDERED: CARV12.5 PO (04:06)
[2022-01-25] MEDS ORDERED: ELIQ5TAB PO (04:06)
[2022-01-25] MEDS ORDERED: AMOX875T2 PO (04:06)
[2022-01-25] MEDS ORDERED: SPIR-10 PO (04:06)
[2022-01-25] MEDS ORDERED: ALLO300T2 PO (04:06)
[2022-01-25] MEDS ORDERED: HOME MED LIST COMPLETE! XX SCH (04:10)
[2022-01-25] MEDS ORDERED: PERCOCET 5MG/325MG TAB PO PRN ×2 (04:20)
[2022-01-25] MEDS ORDERED: PROMETHAZINE 25MG/ML 1ML VIAL IV PRN (04:20)
[2022-01-25] MEDS ORDERED: NS 1,000 ML IV SCH (04:30)
[2022-01-25] MEDS: ACETAMINOPHEN TAB 650MG DOSE (2X325MG) PO PRN (04:49)
[2022-01-25 05:05] LABS: CREATININE,RANDOM URINE 60.3 MG/DL; TOTAL PROTEIN,RANDOM URINE 180.8 MG/DL (0.0-12.0)
[2022-01-25] MEDS: PIPERACILLIN/TAZOBACTAM SOD 3.375 GM in D5W MINI-BAG PLUS 50 ML IV SCH ×3 (05:49→17:58)
[2022-01-25 06:00] LABS: HEMATOCRIT 37.5 % (42.0-52.0); HEMOGLOBIN 11.6 g/dl (13.5-17.5); MEAN CORPUSCULAR HEMOGLOBIN 31.4 pg (27.0-33.0); MEAN CORPUSCULAR HGB CONC 30.9 g/dl (32.0-36.5); MEAN CORPUSCULAR VOLUME 101.4 fl (80.0-96.0); PLATELET COUNT, AUTOMATED 330 10^3/uL (150-450); WHITE BLOOD COUNT 13.8 10^3/uL (4.0-10.0)
[2022-01-25 06:12] LABS: INR 1.18; PROTHROMBIN TIME 15.4 SECONDS (12.7-14.5)
[2022-01-25 06:33] LABS: CALCIUM LEVEL 8.5 MG/DL (8.8-10.2); CREATININE FOR GFR 3.56 MG/DL (0.70-1.30); GLOMERULAR FILTRATION RATE 18.3 (>49); MAGNESIUM LEVEL 2.3 MG/DL (1.8-2.4); POTASSIUM SERUM 4.7 MEQ/L (3.5-5.1)
[2022-01-25] MEDS: DOCUSATE SODIUM 100MG CAPSULE PO SCH ×2 (09:00→21:04)
[2022-01-25] MEDS: APIXABAN 5 MG TAB (ELIQUIS) PO SCH ×2 (09:02→21:04)
[2022-01-25] MEDS ORDERED: NS 1,000 ML IV ONE (09:30)
[2022-01-25] MEDS: CARVedilol 12.5 MG TAB PO SCH ×2 (10:00→21:00)
[2022-01-25] MEDS ORDERED: LR 1,000 ML IV ONE (11:15)
[2022-01-25] MEDS ORDERED: LIDOCAINE 2% 5ML JELLY UROJET As Ordered ONE (12:35)
[2022-01-25] MEDS ORDERED: fentaNYL 100 MCG/2 ML INJECTION As Ordered ONE (12:49)
[2022-01-25] MEDS ORDERED: dexameTHASONE 4 MG/ML 1ML VIAL (J1100 PER 1MG) As Ordered ONE (12:49)
[2022-01-25] MEDS ORDERED: propofoL 200 MG/20 ML VIAL As Ordered ONE ×2 (12:49→12:54)
[2022-01-25] MEDS ORDERED: LIDOCAINE 2% 100MG/5ML SDV (FOR ANES.) As Ordered ONE (12:49)
[2022-01-25] MEDS ORDERED: ONDANSETRON 4MG 2ML VIAL As Ordered ONE (12:49)
[2022-01-25] MEDS ORDERED: PHENYLephrine 500MCG 5ML (100MCG/ML) SYRINGE As Ordered ONE (12:50)
[2022-01-25] MEDS ORDERED: LR 1,000 ML IV SCH ×2 (13:25→17:00)
[2022-01-25] MEDS ORDERED: ONDANSETRON 4MG 2ML VIAL IV PRN (13:25)
[2022-01-25] MEDS ORDERED: fentaNYL 100 MCG/2 ML INJECTION IV PRN (13:25)
[2022-01-25] MEDS ORDERED: oxyCODONE 5MG TAB PO PRN (13:25)
[2022-01-25] MEDS: SANTYL OINT 30GM TOP SCH (16:40)
[2022-01-25] MEDS: LR 1,000 ML IV SCH (22:07)
[2022-01-25] MEDS ORDERED: CALCIUM CARBONATE 500 MG CHEW U/D PO ONE (22:10)
[2022-01-26] VITALS: BP 118/64
[2022-01-26] MEDS: PIPERACILLIN/TAZOBACTAM SOD 3.375 GM in D5W MINI-BAG PLUS 50 ML IV SCH ×4 (00:23→21:37)
[2022-01-26 04:00] VITALS: BP 101/74
[2022-01-26] MEDS: LR 1,000 ML IV SCH (05:48)
[2022-01-26 06:04] LABS: HEMATOCRIT 37.8 % (42.0-52.0); HEMOGLOBIN 11.8 g/dl (13.5-17.5); MEAN CORPUSCULAR HEMOGLOBIN 32.2 pg (27.0-33.0); MEAN CORPUSCULAR HGB CONC 31.2 g/dl (32.0-36.5); MEAN CORPUSCULAR VOLUME 103.3 fl (80.0-96.0); PLATELET COUNT, AUTOMATED 307 10^3/uL (150-450); RED BLOOD COUNT 3.66 10^6/uL (4.30-6.10); WHITE BLOOD COUNT 12.1 10^3/uL (4.0-10.0)
[2022-01-26 06:35] LABS: CALCIUM LEVEL 8.1 MG/DL (8.8-10.2); CREATININE FOR GFR 3.32 MG/DL (0.70-1.30); GLOMERULAR FILTRATION RATE 19.8 (>49); MAGNESIUM LEVEL 2.1 MG/DL (1.8-2.4); POTASSIUM SERUM 5.2 MEQ/L (3.5-5.1)
[2022-01-26] MEDS: ACETAMINOPHEN TAB 650MG DOSE (2X325MG) PO PRN ×3 (07:53→22:07)
[2022-01-26 07:56] VITALS: BP 135/59
[2022-01-26] MEDS: DOCUSATE SODIUM 100MG CAPSULE PO SCH ×2 (08:29→21:00)
[2022-01-26] MEDS: APIXABAN 5 MG TAB (ELIQUIS) PO SCH ×2 (08:30→21:10)
[2022-01-26] MEDS: CARVedilol 12.5 MG TAB PO SCH ×2 (08:30→21:11)
[2022-01-26] MEDS: SANTYL OINT 30GM TOP SCH (11:01)
[2022-01-26 12:07] VITALS: BP 110/65
[2022-01-26 15:54] VITALS: BP 133/92
[2022-01-26] MEDS ORDERED: CALCIUM CARBONATE 500 MG CHEW U/D PO PRN ×2 (18:15→18:45)
[2022-01-26 20:00] VITALS: BP 105/66
[2022-01-26] MEDS: TAMSULOSIN 0.4 MG CAP PO SCH (21:11)
[2022-01-27] VITALS: BP 121/79
[2022-01-27 04:00] VITALS: BP 113/79
[2022-01-27 04:52] LABS: HEMATOCRIT 38.1 % (42.0-52.0); HEMOGLOBIN 11.7 g/dl (13.5-17.5); MEAN CORPUSCULAR HEMOGLOBIN 31.4 pg (27.0-33.0); MEAN CORPUSCULAR HGB CONC 30.7 g/dl (32.0-36.5); MEAN CORPUSCULAR VOLUME 102.1 fl (80.0-96.0); PLATELET COUNT, AUTOMATED 310 10^3/uL (150-450); RED BLOOD COUNT 3.73 10^6/uL (4.30-6.10); WHITE BLOOD COUNT 13.5 10^3/uL (4.0-10.0)
[2022-01-27 05:19] LABS: CALCIUM LEVEL 8.1 MG/DL (8.8-10.2); CREATININE FOR GFR 3.21 MG/DL (0.70-1.30); GLOMERULAR FILTRATION RATE 20.6 (>49); MAGNESIUM LEVEL 2.1 MG/DL (1.8-2.4); POTASSIUM SERUM 5.2 MEQ/L (3.5-5.1)
[2022-01-27] MEDS: PIPERACILLIN/TAZOBACTAM SOD 3.375 GM in D5W MINI-BAG PLUS 50 ML IV SCH (05:38)
[2022-01-27 08:00] VITALS: BP 111/77
[2022-01-27] MEDS: DOCUSATE SODIUM 100MG CAPSULE PO SCH ×3 (09:00→20:26)
[2022-01-27] MEDS: ACETAMINOPHEN TAB 650MG DOSE (2X325MG) PO PRN ×2 (09:25→20:25)
[2022-01-27] MEDS: APIXABAN 5 MG TAB (ELIQUIS) PO SCH ×2 (09:25→20:25)
[2022-01-27] MEDS: CARVedilol 12.5 MG TAB PO SCH ×2 (09:26→20:26)
[2022-01-27] MEDS: SANTYL OINT 30GM TOP SCH (09:27)
[2022-01-27] MEDS ORDERED: LevoFLOXacin 500 MG TABLET PO ONE (11:00)
[2022-01-27 12:00] VITALS: BP 120/72
[2022-01-27 16:00] VITALS: BP 123/84
[2022-01-27 20:00] VITALS: BP 130/80
[2022-01-27] MEDS: TAMSULOSIN 0.4 MG CAP PO SCH (20:25)
[2022-01-28] VITALS: BP 118/70
[2022-01-28] MEDS: ACETAMINOPHEN TAB 650MG DOSE (2X325MG) PO PRN (02:13)
[2022-01-28 04:00] VITALS: BP 115/79
[2022-01-28] MEDS: LevoFLOXacin 250 MG TABLET PO SCH (05:10)
[2022-01-28 06:08] LABS: HEMATOCRIT 38.7 % (42.0-52.0); HEMOGLOBIN 12.1 g/dl (13.5-17.5); MEAN CORPUSCULAR HEMOGLOBIN 32.5 pg (27.0-33.0); MEAN CORPUSCULAR HGB CONC 31.3 g/dl (32.0-36.5); PLATELET COUNT, AUTOMATED 343 10^3/uL (150-450); RED BLOOD COUNT 3.72 10^6/uL (4.30-6.10); WHITE BLOOD COUNT 10.4 10^3/uL (4.0-10.0)
[2022-01-28 06:41] LABS: CALCIUM LEVEL 8.5 MG/DL (8.8-10.2); CREATININE FOR GFR 2.91 MG/DL (0.70-1.30); GLOMERULAR FILTRATION RATE 23.1 (>49); MAGNESIUM LEVEL 2.2 MG/DL (1.8-2.4); POTASSIUM SERUM 5.2 MEQ/L (3.5-5.1)
[2022-01-28 08:00] VITALS: BP 125/86
[2022-01-28] MEDS: DOCUSATE SODIUM 100MG CAPSULE PO SCH ×2 (09:00→20:30)
[2022-01-28] MEDS ORDERED: GABAPENTIN 300 MG CAP PO PRN (09:45)
[2022-01-28] MEDS: CARVedilol 12.5 MG TAB PO SCH ×2 (10:02→20:30)
[2022-01-28] MEDS: LACTOBACILLUS ACIDOPHILUS CAP (BACID) PO SCH ×2 (10:02→17:39)
[2022-01-28] MEDS: APIXABAN 5 MG TAB (ELIQUIS) PO SCH ×2 (10:03→20:29)
[2022-01-28] MEDS: SANTYL OINT 30GM TOP SCH (10:03)
[2022-01-28 16:00] VITALS: BP 142/73
[2022-01-28 20:00] VITALS: BP 117/80
[2022-01-28] MEDS: TAMSULOSIN 0.4 MG CAP PO SCH (20:29)
[2022-01-29] VITALS: BP 116/74
[2022-01-29] MEDS: ACETAMINOPHEN TAB 650MG DOSE (2X325MG) PO PRN (00:41)
[2022-01-29 04:00] VITALS: BP 114/79
[2022-01-29] MEDS: LevoFLOXacin 250 MG TABLET PO SCH (05:08)
[2022-01-29 05:45] LABS: HEMATOCRIT 39.2 % (42.0-52.0); HEMOGLOBIN 11.8 g/dl (13.5-17.5); MEAN CORPUSCULAR HEMOGLOBIN 31.6 pg (27.0-33.0); MEAN CORPUSCULAR HGB CONC 30.1 g/dl (32.0-36.5); MEAN CORPUSCULAR VOLUME 104.8 fl (80.0-96.0); PLATELET COUNT, AUTOMATED 332 10^3/uL (150-450); RED BLOOD COUNT 3.74 10^6/uL (4.30-6.10); WHITE BLOOD COUNT 10.1 10^3/uL (4.0-10.0)
[2022-01-29 06:06] LABS: ALBUMIN 2.2 GM/DL (3.2-5.2); BILIRUBIN,TOTAL 0.3 MG/DL (0.2-1.0); CALCIUM LEVEL 8.2 MG/DL (8.8-10.2); CREATININE FOR GFR 2.72 MG/DL (0.70-1.30); GLOMERULAR FILTRATION RATE 24.9 (>49); MAGNESIUM LEVEL 2.1 MG/DL (1.8-2.4); POTASSIUM SERUM 5.1 MEQ/L (3.5-5.1); TOTAL PROTEIN 5.8 GM/DL (6.4-8.2)
[2022-01-29 08:00] VITALS: BP 113/85
[2022-01-29] MEDS: DOCUSATE SODIUM 100MG CAPSULE PO SCH (09:00)
[2022-01-29 09:39] VITALS: BP 114/79
[2022-01-29] MEDS: CARVedilol 12.5 MG TAB PO SCH (09:39)
[2022-01-29] MEDS: APIXABAN 5 MG TAB (ELIQUIS) PO SCH (09:39)
[2022-01-29] MEDS: LACTOBACILLUS ACIDOPHILUS CAP (BACID) PO SCH (09:40)
[2022-01-29 12:00] VITALS: BP 115/58
[2022-01-29] MEDS ORDERED: RISATAB3 PO (13:21)
[2022-01-29] MEDS ORDERED: FLOM0.4C39 PO (13:21)
[2022-01-29] MEDS ORDERED: COLA100C5 PO (13:21)
[2022-01-29] MEDS ORDERED: LEVO1TAB38 PO (13:21)
[2022-01-29] MEDS: SANTYL OINT 30GM TOP SCH (14:21)
[2022-01-29 16:00] VITALS: BP 120/78
== END 2022-01-29 16:43 | disposition home or self-care (01) | DRG 853 ==
LOC: M ED 22:03 → M ED INP 01-25 04:17 → M PCU 01-25 05:19
PROVIDERS: ADMIT Family Medicine; ATTEND Family Medicine
PROC: 0T778DZ Dilation of Left Ureter with Intraluminal Device, Via Natural or Artificial Opening Endoscopic (ICD-10-PCS; principal; 2022-01-26)
PROC: BT04YZZ Plain Radiography of Kidneys, Ureters and Bladder using Other Contrast (ICD-10-PCS; 2022-01-26)
DX: A41.59 Other Gram-negative sepsis (principal); N17.0 Acute kidney failure with tubular necrosis; I50.22 Chronic systolic (congestive) heart failure; N12 Tubulo-interstitial nephritis, not specified as acute or chronic; I13.0 Hypertensive heart and chronic kidney disease with heart failure and stage 1 through stage 4 chronic kidney disease, or unspecified chronic kidney disease; N13.0 Hydronephrosis with ureteropelvic junction obstruction; B96.1 Klebsiella pneumoniae [K. pneumoniae] as the cause of diseases classified elsewhere; N18.30 Chronic kidney disease, stage 3 unspecified; I48.91 Unspecified atrial fibrillation; M19.90 Unspecified osteoarthritis, unspecified site; G47.33 Obstructive sleep apnea (adult) (pediatric); D64.9 Anemia, unspecified; Z79.01 Long term (current) use of anticoagulants; M10.9 Gout, unspecified; Z96.643 Presence of artificial hip joint, bilateral; Z96.653 Presence of artificial knee joint, bilateral; Z79.2 Long term (current) use of antibiotics; Z79.899 Other long term (current) drug therapy; Z88.8 Allergy status to other drugs, medicaments and biological substances; Z20.822 Contact with and (suspected) exposure to COVID-19; E87.5 Hyperkalemia

== ENCOUNTER → 2022-09-12 | Outpatient (CLI) | payer MEDICARE ==
[~2022-09-12] MED LIST changes: +ACET-897 PO; +ALLO300T2 PO; +AMOX500C PO; +AMOX875T2 PO; +CARV12.5 PO; +COLA100C5 PO; +FLOM0.4C39 PO; +JARD1TAB PO; +LEVO1TAB38 PO; +RISATAB3 PO; +SANT250O8 TOP
== END ==
LOC: M PLALAB 15:22
PROVIDERS: ATTEND Urology
DX: Z12.5 Encounter for screening for malignant neoplasm of prostate (principal)

== ENCOUNTER → 2022-10-01 | Outpatient (REF) | payer MEDICARE | LOC: M LAB REF 16:54 | PROVIDERS: ATTEND Internal Medicine Nephrology | DX: N30.00 Acute cystitis without hematuria (principal) ==

== ENCOUNTER → 2022-10-03 | Outpatient (CLI) | payer MEDICARE | LOC: M WHC 13:32 | PROVIDERS: ATTEND Internal Medicine Nephrology | DX: N18.32 Chronic kidney disease, stage 3b (principal); N30.00 Acute cystitis without hematuria; N13.30 Unspecified hydronephrosis ==

== ENCOUNTER → 2023-04-06 | Outpatient (REF) | payer MEDICARE, BC ==
[~2023-04-06] MED LIST changes: +DICL100G10 TOP; -DICL1GEL3 TOP; +DOCU100C16 PO; +FAMO20TA PO; +FURO80TA2 PO; +METO100T5 PO; +METO25TA PO; +MIDO2.5T PO; +NEOM28OI EXT; +TORS100T PO
== END ==
LOC: M LAB REF 16:59
PROVIDERS: ATTEND Internal Medicine Nephrology
DX: N30.00 Acute cystitis without hematuria (principal)

== ENCOUNTER 2023-06-06 13:56 | Inpatient (IN) | payer BC, MEDICARE ==
[~2023-06-06] VITALS: Ht 177.8 cm; Wt 123.4 kg
[2023-06-06] MEDS: allopurinoL 300 MG TAB PO SCH (09:00)
[2023-06-06] MEDS: TAMSULOSIN 0.4 MG CAP PO SCH (09:00)
[2023-06-06] MEDS ORDERED: CEFD1CAP9 PO (14:17)
[2023-06-06] MEDS ORDERED: METO25TA PO (14:17)
[2023-06-06] MEDS ORDERED: LIDOCAINE W/EPINEPHRINE 1% 20ML VIAL SC ONE (15:25)
[2023-06-06] MEDS ORDERED: NS 500 ML IV ONE (15:50)
[2023-06-06 16:17] LABS: BASO % 0.5 % (0.0-1.0); EOS # 0.1 10^3/uL (0.0-0.5); EOS % 2.5 % (0.0-3.0); HEMATOCRIT 27.8 % (42.0-52.0); HEMOGLOBIN 8.5 g/dl (13.5-17.5); LYMPH # 0.4 10^3/uL (1.5-5.0); LYMPH % 8.8 % (24.0-44.0); MEAN CORPUSCULAR HEMOGLOBIN 32.9 pg (27.0-33.0); MEAN CORPUSCULAR HGB CONC 30.6 g/dl (32.0-36.5); MEAN CORPUSCULAR VOLUME 107.8 fl (80.0-96.0); MONO # 0.7 10^3/uL (0.0-0.8); NEUTROPHILS # 2.8 10^3/uL (1.5-8.5); NEUTROPHILS % 69.7 % (36.0-66.0); PLATELET COUNT, AUTOMATED 143 10^3/uL (150-450); RED BLOOD COUNT 2.58 10^6/uL (4.30-6.10); WHITE BLOOD COUNT 4.1 10^3/uL (4.0-10.0)
[2023-06-06 16:51] LABS: ALBUMIN 2.7 G/DL (3.2-5.2); BILIRUBIN,DIRECT 0.5 MG/DL (<0.4); BILIRUBIN,TOTAL 0.8 MG/DL (0.3-1.2); CREATININE FOR GFR 4.24 MG/DL (0.70-1.30); GLOMERULAR FILTRATION RATE 14.9 (>49); POTASSIUM SERUM 4.2 MMOL/L (3.5-5.1); TOTAL PROTEIN 5.8 G/DL (5.7-8.2)
[2023-06-06 16:57] LABS: INR 1.33; PROTHROMBIN TIME 16.1 SECONDS (12.5-14.5)
[2023-06-06 16:58] LABS: PARTIAL THROMBOPLASTIN TIME 35.2 SECONDS (24.8-34.2)
[2023-06-06 17:00] LABS: RSV AMPLIFICATION POSITIVE (NEGATIVE)
[2023-06-06] MEDS ORDERED: METOPROLOL 5 MG/5 ML VIAL IV STA (17:46)
[2023-06-06] MEDS ORDERED: GABA-282 PO (17:58)
[2023-06-06] MEDS ORDERED: METO100T5 PO (17:58)
[2023-06-06] MEDS ORDERED: TORS100T PO (17:58)
[2023-06-06] MEDS ORDERED: DICL100G10 TOP (17:58)
[2023-06-06] MEDS ORDERED: HOME MED LIST COMPLETE! XX SCH (18:00)
[2023-06-06] MEDS ORDERED: ACETAMINOPHEN 500 MG TAB PO PRN ×2 (18:15)
[2023-06-06] MEDS: METOPROLOL TART 25 MG TABLET PO SCH ×2 (18:52→23:44)
[2023-06-06 20:03] LABS: HEMATOCRIT 29.8 % (42.0-52.0); HEMOGLOBIN 9.2 g/dl (13.5-17.5); MEAN CORPUSCULAR HEMOGLOBIN 33.2 pg (27.0-33.0); MEAN CORPUSCULAR HGB CONC 30.9 g/dl (32.0-36.5); MEAN CORPUSCULAR VOLUME 107.6 fl (80.0-96.0); PLATELET COUNT, AUTOMATED 143 10^3/uL (150-450); RED BLOOD COUNT 2.77 10^6/uL (4.30-6.10); WHITE BLOOD COUNT 3.8 10^3/uL (4.0-10.0)
[2023-06-06 20:40] VITALS: BP 94/50; TEMP 97.5; O2SAT 99
[2023-06-06] MEDS: GABAPENTIN 300 MG CAP PO SCH (21:36)
[2023-06-06] MEDS: FAMOTIDINE 20 MG TAB PO SCH (21:36)
[2023-06-06] MEDS ORDERED: BENZONATATE 100MG CAPSULE PO ONE (23:00)
[2023-06-06 23:35] VITALS: BP 104/68; TEMP 97.5; O2SAT 100
[2023-06-07 00:32] LABS: HEMATOCRIT 30.8 % (42.0-52.0); HEMOGLOBIN 9.1 g/dl (13.5-17.5); MEAN CORPUSCULAR HEMOGLOBIN 32.4 pg (27.0-33.0); MEAN CORPUSCULAR HGB CONC 29.5 g/dl (32.0-36.5); MEAN CORPUSCULAR VOLUME 109.6 fl (80.0-96.0); PLATELET COUNT, AUTOMATED 138 10^3/uL (150-450); RED BLOOD COUNT 2.81 10^6/uL (4.30-6.10); WHITE BLOOD COUNT 3.6 10^3/uL (4.0-10.0)
[2023-06-07 01:04] LABS: CK-MB VALUE MASS 3.9 NG/ML (<3.6)
[2023-06-07 01:05] LABS: MB/CK RELATIVE INDEX 5.13 (< OR =4)
[2023-06-07 03:43] VITALS: BP 72/52; TEMP 98.1; O2SAT 98
[2023-06-07] MEDS ORDERED: NS 500 ML IV ONE (04:05)
[2023-06-07] MEDS ORDERED: NS 250 ML IV ONE (04:05)
[2023-06-07 04:28] VITALS: BP 84/58
[2023-06-07] MEDS ORDERED: MIDODRINE 5 MG TAB PO ONE (05:00)
[2023-06-07 05:45] LABS: HEMOGLOBIN 8.2 g/dl (13.5-17.5); MEAN CORPUSCULAR HEMOGLOBIN 32.9 pg (27.0-33.0); MEAN CORPUSCULAR HGB CONC 30.4 g/dl (32.0-36.5); MEAN CORPUSCULAR VOLUME 108.4 fl (80.0-96.0); PLATELET COUNT, AUTOMATED 141 10^3/uL (150-450); RED BLOOD COUNT 2.49 10^6/uL (4.30-6.10); WHITE BLOOD COUNT 3.3 10^3/uL (4.0-10.0)
[2023-06-07 05:47] VITALS: BP 92/60
[2023-06-07 06:00] VITALS: BP 92/50
[2023-06-07] MEDS: METOPROLOL TART 25 MG TABLET PO SCH ×2 (06:00→12:00)
[2023-06-07 06:07] LABS: CALCIUM LEVEL 7.8 MG/DL (8.3-10.6); CREATININE FOR GFR 4.2 MG/DL (0.70-1.30); GLOMERULAR FILTRATION RATE 15.1 (>49); POTASSIUM SERUM 4.3 MMOL/L (3.5-5.1)
[2023-06-07 07:52] LABS: CK-MB VALUE MASS 3.4 NG/ML (<3.6); MB/CK RELATIVE INDEX 4.72 (< OR =4)
[2023-06-07] MEDS ORDERED: CEFDINIR 300 MG CAP (OMNICEF) PO SCH (09:00)
[2023-06-07] MEDS: TAMSULOSIN 0.4 MG CAP PO SCH (09:38)
[2023-06-07] MEDS: allopurinoL 300 MG TAB PO SCH (09:38)
[2023-06-07] MEDS: FAMOTIDINE 20 MG TAB PO SCH (09:38)
[2023-06-07] MEDS: GABAPENTIN 300 MG CAP PO SCH (09:38)
[2023-06-07 09:41] VITALS: BP 88/62; TEMP 98.1; O2SAT 95
[2023-06-07] MEDS ORDERED: METO1TAB87 PO (10:16)
[2023-06-07 13:29] LABS: HEMATOCRIT 26.9 % (42.0-52.0); HEMOGLOBIN 8.2 g/dl (13.5-17.5); MEAN CORPUSCULAR HEMOGLOBIN 32.8 pg (27.0-33.0); MEAN CORPUSCULAR HGB CONC 30.5 g/dl (32.0-36.5); MEAN CORPUSCULAR VOLUME 107.6 fl (80.0-96.0); PLATELET COUNT, AUTOMATED 146 10^3/uL (150-450); WHITE BLOOD COUNT 3.7 10^3/uL (4.0-10.0)
== END 2023-06-07 13:40 | disposition left against medical advice (07) | DRG 308 ==
LOC: M ED 13:56 → M ED INP 18:11 → ENRESERV 19:56 → M PCU 20:37
PROVIDERS: ADMIT Family Medicine; ATTEND Family Medicine
DX: I48.91 Unspecified atrial fibrillation (principal); I50.23 Acute on chronic systolic (congestive) heart failure; N17.9 Acute kidney failure, unspecified; N18.4 Chronic kidney disease, stage 4 (severe); Z79.01 Long term (current) use of anticoagulants; M10.9 Gout, unspecified; G47.33 Obstructive sleep apnea (adult) (pediatric); D53.9 Nutritional anemia, unspecified; Z95.2 Presence of prosthetic heart valve; Z96.653 Presence of artificial knee joint, bilateral; Z96.643 Presence of artificial hip joint, bilateral; S99.921A Unspecified injury of right foot, initial encounter; W18.30XA Fall on same level, unspecified, initial encounter; Y92.009 Unspecified place in unspecified non-institutional (private) residence as the place of occurrence of the external cause; Y92.018 Other place in single-family (private) house as the place of occurrence of the external cause; D63.1 Anemia in chronic kidney disease; E66.01 Morbid (severe) obesity due to excess calories; Z88.8 Allergy status to other drugs, medicaments and biological substances; Z79.899 Other long term (current) drug therapy; I87.8 Other specified disorders of veins

== ENCOUNTER → 2023-07-28 | Outpatient (CLI) | payer MEDICARE, MEDICAID ==
[~2023-07-28] MED LIST changes: +ALBU8.5H PO; +ALLO10TA PO; +CEFD1CAP9 PO; +DIGO0.123 PO; +FAMO10TA50 PO; +FERR325T81 PO; +FINA5TAB2 PO; +FLON1SPR NARES; +METO1TAB32 PO; +METO1TAB87 PO; +METO25TA4 PO; +MIDO5TA PO; +TORS20TA2 PO
== END ==
LOC: M RAD 12:55
PROVIDERS: ATTEND Internal Medicine Cardiovascular Disease
DX: S09.90XA Unspecified injury of head, initial encounter (principal); I50.22 Chronic systolic (congestive) heart failure; W19.XXXA Unspecified fall, initial encounter; Y92.9 Unspecified place or not applicable; Y93.9 Activity, unspecified; Y99.9 Unspecified external cause status; R90.82 White matter disease, unspecified; Z86.73 Personal history of transient ischemic attack (TIA), and cerebral infarction without residual deficits

== ENCOUNTER → 2023-09-03 | Outpatient (REF) | payer MEDICARE, MEDICAID, BC ==
[2023-09-03 20:29] LABS: FERRITIN 113.6 NG/ML (10.5-307.3); PERCENT SATURATION 9.8 % (19.7-50.0)
== END ==
LOC: M LAB REF 17:02
PROVIDERS: ATTEND Internal Medicine Nephrology
DX: N18.1 Chronic kidney disease, stage 1 (principal); D63.1 Anemia in chronic kidney disease

== ENCOUNTER 2023-09-09 07:26 | Emergency (ER) | payer MEDICARE, MEDICAID ==
[2023-09-09 08:00] VITALS: BP 108/58; TEMP 98.9; O2SAT 96
== END 2023-09-09 08:17 | disposition home or self-care (01) ==
LOC: M ED 07:26 → EDBD 07:26 → M ED 08:17
DX: R22.41 Localized swelling, mass and lump, right lower limb (principal); W18.2XXA Fall in (into) shower or empty bathtub, initial encounter; Y92.9 Unspecified place or not applicable; Y93.89 Activity, other specified; I50.9 Heart failure, unspecified; G47.33 Obstructive sleep apnea (adult) (pediatric); N18.9 Chronic kidney disease, unspecified; Z79.899 Other long term (current) drug therapy; Z88.8 Allergy status to other drugs, medicaments and biological substances

== ENCOUNTER 2023-09-09 08:38 | Outpatient (CLI) | payer MEDICARE, MEDICAID ==
[~2023-09-09] VITALS: Ht 177.8 cm; Wt 120.0 kg
[2023-09-09 08:36] VITALS: BP 103/62; O2SAT 97
[2023-09-09] MEDS: FUROSEMIDE 100MG/10ML VIAL IV ONE (09:08)
[2023-09-09 09:42] VITALS: BP 101/72; O2SAT 100
== END 2023-09-09 09:55 ==
LOC: M INFU 08:38
PROVIDERS: ATTEND Internal Medicine Nephrology
DX: N18.32 Chronic kidney disease, stage 3b (principal); Z88.8 Allergy status to other drugs, medicaments and biological substances
CPT/HCPCS: 96374; J1940

== ENCOUNTER 2023-09-11 07:13 | Outpatient (CLI) | payer MEDICARE, MEDICAID ==
[~2023-09-11] VITALS: Ht 177.8 cm; Wt 120.0 kg
[2023-09-11 07:30] VITALS: BP 104/60; O2SAT 93
[2023-09-11] MEDS: FUROSEMIDE 100MG/10ML VIAL IV ONE (07:43)
[2023-09-11 08:45] VITALS: BP_SYST 104; BP_SYST 112; BP_DIAS 60; BP_DIAS 64; O2SAT 94
== END 2023-09-11 08:45 ==
LOC: M INFU 07:13
PROVIDERS: ATTEND Internal Medicine Nephrology
DX: N18.32 Chronic kidney disease, stage 3b (principal); Z88.8 Allergy status to other drugs, medicaments and biological substances

== ENCOUNTER 2023-09-13 15:44 | Inpatient (IN) | payer MEDICARE, MEDICAID ==
[~2023-09-13] VITALS: Ht 177.8 cm; Wt 116.0 kg
[2023-09-13 16:13] LABS: VENOUS BASE EXCESS -0.6 (-2.0-2.0); VENOUS HCO3 25.6 MMOL/L (23.0-27.0); VENOUS O2 SATURATION 39.9 % (60.0-80.0); VENOUS PARTIAL PRESSURE CO2 48.8 mmHg (38.0-50.0); VENOUS PARTIAL PRESSURE O2 24.2 mmHg (30.0-50.0); VENOUS PH 7.337 UNITS (7.330-7.430); VENOUS TOTAL CO2 27.1 MMOL/L (24.0-28.0)
[2023-09-13 16:16] LABS: BASO % 0.2 % (0.0-1.0); EOS # 0.1 10^3/uL (0.0-0.5); EOS % 0.6 % (0.0-3.0); HEMATOCRIT 29.4 % (42.0-52.0); HEMOGLOBIN 9.2 g/dl (13.5-17.5); LYMPH # 0.6 10^3/uL (1.5-5.0); LYMPH % 5.1 % (24.0-44.0); MEAN CORPUSCULAR HEMOGLOBIN 32.2 pg (27.0-33.0); MEAN CORPUSCULAR HGB CONC 31.3 g/dl (32.0-36.5); MEAN CORPUSCULAR VOLUME 102.8 fl (80.0-96.0); MONO % 7.7 % (2.0-8.0); NEUTROPHILS # 10.7 10^3/uL (1.5-8.5); NEUTROPHILS % 85.6 % (36.0-66.0); PLATELET COUNT, AUTOMATED 232 10^3/uL (150-450); RED BLOOD COUNT 2.86 10^6/uL (4.30-6.10); WHITE BLOOD COUNT 12.5 10^3/uL (4.0-10.0)
[2023-09-13 16:20] LABS: ERYTHROCYTE SEDIMENTATION RATE 118 mm/hr (0-20)
[2023-09-13 16:27] LABS: INR 1.52; PROTHROMBIN TIME 17.8 SECONDS (12.5-14.5)
[2023-09-13 16:46] LABS: CK-MB VALUE MASS 2.1 NG/ML (<3.6)
[2023-09-13 16:48] LABS: ALBUMIN 2.6 G/DL (3.2-5.2); ALKALINE PHOSPHATASE 126 U/L (46-116); ALT/SGPT < 9 U/L (7.0-40); AST/SGOT 15 U/L (<34); BILIRUBIN,DIRECT 0.3 MG/DL (<0.4); BILIRUBIN,TOTAL 0.6 MG/DL (0.3-1.2); BLOOD UREA NITROGEN 90 MG/DL (9-23); CALCIUM LEVEL 8.2 MG/DL (8.3-10.6); CARBON DIOXIDE LEVEL 27 MMOL/L (20-31); CHLORIDE LEVEL 103 MMOL/L (98-107); CPK CREATINE PHOSPHOKINASE 45 U/L (46-171); CREATININE FOR GFR 2.97 MG/DL (0.70-1.30); DIGOXIN LEVEL < 0.1 NG/ML (0.8-2.0); GLOMERULAR FILTRATION RATE 22.4 (>42); GLUCOSE, FASTING 110 MG/DL (74-106); MB/CK RELATIVE INDEX 4.66 (< OR =4); POTASSIUM SERUM 3.4 MMOL/L (3.5-5.1); SODIUM LEVEL 139 MMOL/L (136-145); TOTAL PROTEIN 6.5 G/DL (5.7-8.2)
[2023-09-13 16:50] LABS: THYROID STIMULATING HORMONE 4.686 uIU/ML (0.55-4.78)
[2023-09-13] MEDS: POTASSIUM CHLORIDE 10MEQ SR TABLET PO ONE (17:05)
[2023-09-13] MEDS: FUROSEMIDE 40MG/4ML VIAL IV ONE (17:06)
[2023-09-13] MEDS: METOPROLOL TART 25 MG TABLET PO ONE (17:08)
[2023-09-13] MEDS: MORPHINE 2 MG/ML 1ML VIAL IV ONE (17:15)
[2023-09-13] MEDS: CEFEPIME HCL 1 GM in D5W MINI-BAG PLUS 50 ML IV ONE (17:58)
[2023-09-13 18:02] LABS: CK-MB VALUE MASS 1.8 NG/ML (<3.6)
[2023-09-13] MEDS: DIGOXIN INJ 0.5 MG/2 ML AMP IV ONE (18:05)
[2023-09-13] MEDS: METOPROLOL 5 MG/5 ML VIAL IV STA (18:11)
[2023-09-13] MEDS ORDERED: TRAM50TA2 PO (18:59)
[2023-09-13] MEDS ORDERED: METO1TAB32 PO (18:59)
[2023-09-13] MEDS ORDERED: DIGO0.123 PO (18:59)
[2023-09-13] MEDS ORDERED: ALLO100T PO (18:59)
[2023-09-13] MEDS ORDERED: FAMO10TA52 PO (18:59)
[2023-09-13] MEDS ORDERED: FINA5TAB2 PO (18:59)
[2023-09-13] MEDS ORDERED: HOME MED LIST COMPLETE! XX SCH (19:00)
[2023-09-13] MEDS: LIDOCAINE 2% 5ML JELLY UROJET TOP ONE (19:10)
[2023-09-13] MEDS ORDERED: ALBUTEROL 90 MCG/ACT 8GM HFA INHALER INH PRN (19:35)
[2023-09-13] MEDS ORDERED: FLUTICASONE PROP 0.05% NASAL SPRAY 16 GM (FLONASE) NARES PRN (19:35)
[2023-09-13] MEDS ORDERED: HYDROMORPHONE HCL 0.5 MG/ 0.5 ML SYRINGE IV PRN (19:45)
[2023-09-13] MEDS ORDERED: UNRESOLVED CLARIFICATION ENTRY XX STA (20:01)
[2023-09-13] MEDS: VANCOMYCIN HCL 1,000 MG, VIAL MATE ADAPTER 1 EACH in D5W 250 ML IV ONE ×2 (21:21→22:50)
[2023-09-13] MEDS: APIXABAN 5 MG TAB (ELIQUIS) PO SCH (21:21)
[2023-09-13] MEDS: GABAPENTIN 300 MG CAP PO SCH (21:21)
[2023-09-13 21:58] VITALS: BP 96/52; TEMP 97.3; O2SAT 91
[2023-09-13] MEDS: HYDROMORPHONE HCL 0.5 MG/ 0.5 ML SYRINGE IV PRN (22:24)
[2023-09-13] MEDS: NS 500 ML IV SCH (22:50)
[2023-09-13 23:00] VITALS: O2SAT 95
[2023-09-13 23:23] VITALS: BP 108/68; TEMP 97.5; O2SAT 96
[2023-09-13] MEDS: METOPROLOL TART 25 MG TABLET PO SCH (23:28)
[2023-09-14] VITALS (26 sets, daily range): BP systolic 82–102; BP diastolic 48–64; TEMP 97.1–98.4; O2SAT 91–100
[2023-09-14 00:38] LABS: CALCIUM LEVEL 7.9 MG/DL (8.3-10.6); CREATININE FOR GFR 2.91 MG/DL (0.70-1.30); GLOMERULAR FILTRATION RATE 22.9 (>42); POTASSIUM SERUM 3.5 MMOL/L (3.5-5.1)
[2023-09-14] MEDS: POTASSIUM CHLORIDE 10MEQ SR TABLET PO ONE (01:08)
[2023-09-14 03:22] LABS: HEMATOCRIT 26.6 % (42.0-52.0); HEMOGLOBIN 8.4 g/dl (13.5-17.5); MEAN CORPUSCULAR HEMOGLOBIN 32.4 pg (27.0-33.0); MEAN CORPUSCULAR HGB CONC 31.6 g/dl (32.0-36.5); MEAN CORPUSCULAR VOLUME 102.7 fl (80.0-96.0); PLATELET COUNT, AUTOMATED 239 10^3/uL (150-450); RED BLOOD COUNT 2.59 10^6/uL (4.30-6.10)
[2023-09-14 03:48] LABS: CALCIUM LEVEL 7.5 MG/DL (8.3-10.6); CREATININE FOR GFR 2.9 MG/DL (0.70-1.30); POTASSIUM SERUM 3.8 MMOL/L (3.5-5.1)
[2023-09-14] MEDS: CEFEPIME HCL 1 GM in D5W MINI-BAG PLUS 50 ML IV SCH (05:32)
[2023-09-14] MEDS: allopurinoL 100 MG TAB PO SCH (09:59)
[2023-09-14] MEDS: FERROUS SULFATE 325MG TAB PO SCH (09:59)
[2023-09-14] MEDS: MIDODRINE 5 MG TAB PO ONE (09:59)
[2023-09-14] MEDS: PANTOPRAZOLE 40MG TAB (PROTONIX) PO SCH (09:59)
[2023-09-14] MEDS: TAMSULOSIN 0.4 MG CAP PO SCH (10:00)
[2023-09-14] MEDS: APIXABAN 5 MG TAB (ELIQUIS) PO SCH (10:00)
[2023-09-14] MEDS: FINASTERIDE 5MG TAB PO SCH (10:00)
[2023-09-14] MEDS: NYSTATIN 100,000 UNITS/GM TOPICAL PWD 15GM TOP SCH (10:01)
[2023-09-14 10:51] LABS: VANCOMYCIN RANDOM 16.4 UG/ML
[2023-09-14 11:08] LABS: C REACTIVE PROTEIN QUANTITATIV 20.8 MG/DL (<1.0)
[2023-09-14] MEDS: NS 500 ML IV ONE ×2 (11:49→18:39)
[2023-09-14] MEDS: VANCOMYCIN HCL 750 MG, VIAL MATE ADAPTER 1 EACH in D5W 250 ML IV SCH (12:30)
[2023-09-14] MEDS: AMIODARONE 200 MG TAB (PACERONE) PO SCH (14:50)
[2023-09-14] MEDS: LevoFLOXacin 750 MG TABLET PO SCH (14:50)
[2023-09-14] MEDS: ACETAMINOPHEN 500 MG TAB PO PRN (14:51)
[2023-09-14] MEDS ORDERED: VANCOMYCIN HCL 1,000 MG, VIAL MATE ADAPTER 1 EACH in D5W 250 ML IV SCH (21:00)
[2023-09-14] MEDS: ACETAMINOPHEN 500 MG TAB PO SCH (21:12)
[2023-09-14] MEDS: traMADol 50 MG TAB PO PRN (22:14)
[2023-09-15] VITALS (10 sets, daily range): BP systolic 82–112; BP diastolic 50–68; TEMP 96.9–97.9; O2SAT 94–100
[2023-09-15] MEDS ORDERED: MAGIC MOUTHWASH SUSPENSION BTL SS PRN (00:50)
[2023-09-15 04:13] LABS: BASO % 0.3 % (0.0-1.0); EOS # 0.1 10^3/uL (0.0-0.5); EOS % 1.1 % (0.0-3.0); HEMATOCRIT 24.2 % (42.0-52.0); HEMOGLOBIN 7.6 g/dl (13.5-17.5); LYMPH # 0.6 10^3/uL (1.5-5.0); LYMPH % 5.5 % (24.0-44.0); MEAN CORPUSCULAR HEMOGLOBIN 32.5 pg (27.0-33.0); MEAN CORPUSCULAR HGB CONC 31.4 g/dl (32.0-36.5); MEAN CORPUSCULAR VOLUME 103.4 fl (80.0-96.0); MONO # 0.9 10^3/uL (0.0-0.8); MONO % 8.1 % (2.0-8.0); NEUTROPHILS # 9.3 10^3/uL (1.5-8.5); NEUTROPHILS % 84.2 % (36.0-66.0); PLATELET COUNT, AUTOMATED 222 10^3/uL (150-450); RED BLOOD COUNT 2.34 10^6/uL (4.30-6.10)
[2023-09-15 04:33] LABS: BLOOD UREA NITROGEN 83 MG/DL (9-23); CALCIUM LEVEL 7.3 MG/DL (8.3-10.6); CARBON DIOXIDE LEVEL 24 MMOL/L (20-31); CHLORIDE LEVEL 108 MMOL/L (98-107); CREATININE FOR GFR 2.75 MG/DL (0.70-1.30); GLOMERULAR FILTRATION RATE 24.5 (>42); GLUCOSE, FASTING 109 MG/DL (74-106); MAGNESIUM LEVEL 1.8 MG/DL (1.8-2.4); POTASSIUM SERUM 3.8 MMOL/L (3.5-5.1); SODIUM LEVEL 141 MMOL/L (136-145)
[2023-09-15 07:18] LABS: ANTI-STREPTOLYSIN O QUANT < 25.0 IU/ML (<195)
[2023-09-16] VITALS (8 sets, daily range): BP systolic 82–118; BP diastolic 53–63; TEMP 97–98; O2SAT 92–99
[2023-09-16 01:32] LABS: HEMOGLOBIN 8.3 g/dl (13.5-17.5)
[2023-09-16 05:33] LABS: BASO % 0.2 % (0.0-1.0); EOS # 0.2 10^3/uL (0.0-0.5); EOS % 1.3 % (0.0-3.0); HEMATOCRIT 26.3 % (42.0-52.0); HEMOGLOBIN 8.2 g/dl (13.5-17.5); LYMPH # 0.5 10^3/uL (1.5-5.0); MEAN CORPUSCULAR HEMOGLOBIN 31.4 pg (27.0-33.0); MEAN CORPUSCULAR HGB CONC 31.2 g/dl (32.0-36.5); MEAN CORPUSCULAR VOLUME 100.8 fl (80.0-96.0); MONO # 0.8 10^3/uL (0.0-0.8); MONO % 6.7 % (2.0-8.0); NEUTROPHILS # 10.9 10^3/uL (1.5-8.5); NEUTROPHILS % 86.5 % (36.0-66.0); PLATELET COUNT, AUTOMATED 228 10^3/uL (150-450); RED BLOOD COUNT 2.61 10^6/uL (4.30-6.10); WHITE BLOOD COUNT 12.6 10^3/uL (4.0-10.0)
[2023-09-16 05:57] LABS: C REACTIVE PROTEIN QUANTITATIV 18.3 MG/DL (<1.0)
[2023-09-16 06:00] LABS: CREATININE FOR GFR 2.67 MG/DL (0.70-1.30); GLOMERULAR FILTRATION RATE 25.3 (>42); POTASSIUM SERUM 4.1 MMOL/L (3.5-5.1)
[2023-09-16] MEDS: ONDANSETRON 4MG 2ML VIAL IV ONE (10:49)
[2023-09-16] MEDS: SENOKOT S TAB PO SCH (13:38)
[2023-09-16] MEDS: MIRALAX *UNIT DOSE* 17GM PACKET PO SCH (13:38)
[2023-09-16] MEDS: traMADol 50 MG TAB PO PRN (16:25)
[2023-09-17] MEDS: BISACODYL 10MG SUPP PR ONE ×2 (00:10→10:06)
[2023-09-17 04:09] LABS: BASO % 0.3 % (0.0-1.0); EOS # 0.2 10^3/uL (0.0-0.5); EOS % 2.1 % (0.0-3.0); HEMATOCRIT 26.1 % (42.0-52.0); HEMOGLOBIN 8.1 g/dl (13.5-17.5); LYMPH # 0.5 10^3/uL (1.5-5.0); LYMPH % 5.2 % (24.0-44.0); MEAN CORPUSCULAR VOLUME 103.2 fl (80.0-96.0); MONO # 0.7 10^3/uL (0.0-0.8); MONO % 6.6 % (2.0-8.0); NEUTROPHILS # 8.8 10^3/uL (1.5-8.5); NEUTROPHILS % 84.8 % (36.0-66.0); PLATELET COUNT, AUTOMATED 227 10^3/uL (150-450); RED BLOOD COUNT 2.53 10^6/uL (4.30-6.10); WHITE BLOOD COUNT 10.4 10^3/uL (4.0-10.0)
[2023-09-17 04:20] VITALS: BP 97/53; TEMP 97.4; O2SAT 95
[2023-09-17 04:37] LABS: CALCIUM LEVEL 8.2 MG/DL (8.3-10.6); CREATININE FOR GFR 2.59 MG/DL (0.70-1.30); GLOMERULAR FILTRATION RATE 26.2 (>42); MAGNESIUM LEVEL 1.8 MG/DL (1.8-2.4); POTASSIUM SERUM 4.2 MMOL/L (3.5-5.1)
[2023-09-17] MEDS: MAG SULF 1GM/100ML (MAG RUN) 1 GM in IV 1 EA IV SCH (05:13)
[2023-09-17 07:54] VITALS: BP 94/63; TEMP 97.3; O2SAT 96
[2023-09-17] MEDS: TORSEMIDE 20 MG TAB PO SCH (09:22)
[2023-09-17 12:15] VITALS: BP 91/51; TEMP 98.2; O2SAT 97
[2023-09-17 16:22] VITALS: BP 96/54; TEMP 97.7; O2SAT 92
[2023-09-17 18:39] VITALS: BP 95/57; TEMP 97.9; O2SAT 100
[2023-09-17] MEDS: SENOKOT S TAB PO SCH (20:20)
[2023-09-17 23:32] VITALS: BP 96/58; TEMP 96.8; O2SAT 95
[2023-09-18 03:15] VITALS: BP 94/53; TEMP 97; O2SAT 94
[2023-09-18 06:56] LABS: BASO % 0.1 % (0.0-1.0); EOS # 0.2 10^3/uL (0.0-0.5); EOS % 1.5 % (0.0-3.0); HEMATOCRIT 27.3 % (42.0-52.0); HEMOGLOBIN 8.5 g/dl (13.5-17.5); LYMPH # 0.5 10^3/uL (1.5-5.0); LYMPH % 3.5 % (24.0-44.0); MEAN CORPUSCULAR HGB CONC 31.1 g/dl (32.0-36.5); MEAN CORPUSCULAR VOLUME 102.6 fl (80.0-96.0); MONO # 0.9 10^3/uL (0.0-0.8); MONO % 6.4 % (2.0-8.0); NEUTROPHILS # 11.9 10^3/uL (1.5-8.5); NEUTROPHILS % 87.6 % (36.0-66.0); PLATELET COUNT, AUTOMATED 267 10^3/uL (150-450); RED BLOOD COUNT 2.66 10^6/uL (4.30-6.10); WHITE BLOOD COUNT 13.6 10^3/uL (4.0-10.0)
[2023-09-18 07:27] LABS: CALCIUM LEVEL 8.3 MG/DL (8.3-10.6); CREATININE FOR GFR 2.73 MG/DL (0.70-1.30); GLOMERULAR FILTRATION RATE 24.7 (>42); MAGNESIUM LEVEL 2.1 MG/DL (1.8-2.4); POTASSIUM SERUM 4.4 MMOL/L (3.5-5.1)
[2023-09-18 07:39] VITALS: BP 94/53; TEMP 97.7; O2SAT 96
[2023-09-18 09:05] LABS: C REACTIVE PROTEIN QUANTITATIV 16.6 MG/DL (<1.0)
[2023-09-18] MEDS ORDERED: PILL CUTTER 1 EACH XX ONE (09:23)
[2023-09-18] MEDS ORDERED: TRAM50TA2 PO (11:15)
[2023-09-18] MEDS ORDERED: LEVO1TAB40 PO (11:15)
[2023-09-18] MEDS ORDERED: AMIO200T49 PO ×3 (11:15→11:52)
[2023-09-18] MEDS ORDERED: COLA100C5 PO (11:15)
[2023-09-18] MEDS ORDERED: TORS20TA2 PO ×2 (11:15→11:53)
[2023-09-18] MEDS ORDERED: MIRA3350 PO ×2 (11:15→11:53)
[2023-09-18] MEDS ORDERED: NYST1POW9 TOP (12:22)
[2023-09-18] MEDS ORDERED: DALV1SOL IV (15:14)
[2023-09-19] MEDS ORDERED: TRAM50TA2 PO (09:45)
== END 2023-09-18 15:37 | disposition home health service (06) | DRG 872 ==
LOC: EDSEX 15:44 → EDBD 15:44 → M ED 16:40 → M ED INP 19:39 → ENRESERV 19:53 → M PCU 21:47
PROVIDERS: ADMIT Internal Medicine; ATTEND Internal Medicine
PROC: 30233N1 Transfusion of Nonautologous Red Blood Cells into Peripheral Vein, Percutaneous Approach (ICD-10-PCS; principal; 2023-09-15)
DX: A41.9 Sepsis, unspecified organism (principal); N18.4 Chronic kidney disease, stage 4 (severe); I50.22 Chronic systolic (congestive) heart failure; L97.919 Non-pressure chronic ulcer of unspecified part of right lower leg with unspecified severity; L97.929 Non-pressure chronic ulcer of unspecified part of left lower leg with unspecified severity; L03.115 Cellulitis of right lower limb; I13.0 Hypertensive heart and chronic kidney disease with heart failure and stage 1 through stage 4 chronic kidney disease, or unspecified chronic kidney disease; N17.9 Acute kidney failure, unspecified; I48.91 Unspecified atrial fibrillation; K21.9 Gastro-esophageal reflux disease without esophagitis; D64.9 Anemia, unspecified; I27.20 Pulmonary hypertension, unspecified; M10.9 Gout, unspecified; N40.0 Benign prostatic hyperplasia without lower urinary tract symptoms; G47.33 Obstructive sleep apnea (adult) (pediatric); G62.9 Polyneuropathy, unspecified; Z96.643 Presence of artificial hip joint, bilateral; Z96.653 Presence of artificial knee joint, bilateral; E87.6 Hypokalemia; Z79.01 Long term (current) use of anticoagulants; Z79.899 Other long term (current) drug therapy; Z88.8 Allergy status to other drugs, medicaments and biological substances

== ENCOUNTER → 2023-09-18 | Outpatient (CLI) | payer MEDICARE, MEDICAID ==
[~2023-09-18] VITALS: Ht 177.8 cm; Wt 116.0 kg
[~2023-09-18] MED LIST changes: +ALLO100T PO; +AMIO200T49 PO; +DALV1SOL IV; +FAMO10TA52 PO; +LEVO1TAB40 PO; +MIRA3350 PO; +NYST1POW9 TOP
[2023-09-18 15:54] VITALS: BP 122/60; O2SAT 93
[2023-09-18] MEDS: DALBAVANCIN 1,500 MG in D5W 250 ML IV ONE (16:37)
[2023-09-18 17:20] VITALS: BP 125/79; O2SAT 95
== END ==
LOC: M INFU 15:43
PROVIDERS: ATTEND Internal Medicine
DX: L03.90 Cellulitis, unspecified (principal); Z88.4 Allergy status to anesthetic agent
CPT/HCPCS: 96365; J0875

== ENCOUNTER → 2023-09-23 | Outpatient (CLI) | payer MEDICARE, MEDICAID ==
[~2023-09-23] VITALS: Ht 177.8 cm; Wt 109.0 kg
[~2023-09-23] MED LIST changes: +ALBUTEROL SULFATE 2.5MG/0.5ML INH NEB SOLN INH PRN; +EPINEPHrine INJ 1 MG/ML 1ML AMP IM PRN; +MIRA33506 PO; +NS 1,000 ML IV SCH; +diphenhydrAMINE 50MG/ML VIAL IV PRN; +methylPREDNISolone 125MG 2ML VIAL IV PRN
[2023-09-23 13:55] VITALS: BP 137/62; O2SAT 99
[2023-09-23] MEDS: IRON SUCROSE 300 MG in NS 250 ML OVER 90 MIN. IV ONE (14:14)
[2023-09-23 15:50] VITALS: BP 118/64; O2SAT 97
== END ==
LOC: M INFU 13:41
PROVIDERS: ATTEND Internal Medicine Nephrology
DX: E61.1 Iron deficiency (principal); Z88.8 Allergy status to other drugs, medicaments and biological substances

== ENCOUNTER 2023-09-25 18:05 | Inpatient (IN) | payer MEDICARE, MEDICAID ==
[~2023-09-25] VITALS: Ht 177.8 cm; Wt 96.9 kg
[~2023-09-25 18:05] MED LIST changes: -ALBUTEROL SULFATE 2.5MG/0.5ML INH NEB SOLN INH PRN; -EPINEPHrine INJ 1 MG/ML 1ML AMP IM PRN; -MIRA33506 PO; -NS 1,000 ML IV SCH; -diphenhydrAMINE 50MG/ML VIAL IV PRN; -methylPREDNISolone 125MG 2ML VIAL IV PRN
[2023-09-25 21:50] LABS: BASO # 0.1 10^3/uL (0.0-0.2); BASO % 0.3 % (0.0-1.0); EOS % 0.2 % (0.0-3.0); HEMATOCRIT 26.9 % (42.0-52.0); HEMOGLOBIN 8.2 g/dl (13.5-17.5); LYMPH # 0.4 10^3/uL (1.5-5.0); LYMPH % 2.5 % (24.0-44.0); MEAN CORPUSCULAR HEMOGLOBIN 31.1 pg (27.0-33.0); MEAN CORPUSCULAR HGB CONC 30.5 g/dl (32.0-36.5); MEAN CORPUSCULAR VOLUME 101.9 fl (80.0-96.0); MONO % 6.1 % (2.0-8.0); NEUTROPHILS # 15.4 10^3/uL (1.5-8.5); NEUTROPHILS % 90.4 % (36.0-66.0); PLATELET COUNT, AUTOMATED 202 10^3/uL (150-450); RED BLOOD COUNT 2.64 10^6/uL (4.30-6.10); WHITE BLOOD COUNT 17.1 10^3/uL (4.0-10.0)
[2023-09-25 22:01] LABS: INR 1.64; PARTIAL THROMBOPLASTIN TIME 42.2 SECONDS (24.8-34.2); PROTHROMBIN TIME 18.9 SECONDS (12.5-14.5)
[2023-09-25 22:19] LABS: LIPASE 25 U/L (12-53)
[2023-09-25 22:22] LABS: CPK CREATINE PHOSPHOKINASE 44 U/L (46-171)
[2023-09-25 22:45] LABS: ALBUMIN 2.6 G/DL (3.2-5.2); ALKALINE PHOSPHATASE 139 U/L (46-116); ALT/SGPT < 9 U/L (7.0-40); AST/SGOT 21 U/L (<34); BILIRUBIN,DIRECT 0.5 MG/DL (<0.4); BILIRUBIN,TOTAL 0.9 MG/DL (0.3-1.2); BLOOD UREA NITROGEN 64 MG/DL (9-23); CALCIUM LEVEL 8.8 MG/DL (8.3-10.6); CARBON DIOXIDE LEVEL 28 MMOL/L (20-31); CHLORIDE LEVEL 101 MMOL/L (98-107); CREATININE FOR GFR 2.98 MG/DL (0.70-1.30); GLOMERULAR FILTRATION RATE 22.3 (>42); GLUCOSE, FASTING 105 MG/DL (74-106); MB/CK RELATIVE INDEX 4.54 (< OR =4); POTASSIUM SERUM 4.2 MMOL/L (3.5-5.1); SODIUM LEVEL 139 MMOL/L (136-145); TOTAL PROTEIN 6.7 G/DL (5.7-8.2)
[2023-09-25] MEDS: ACETAMINOPHEN 500 MG TAB PO ONE (22:59)
[2023-09-25] MEDS ORDERED: AMIO200T49 PO (23:29)
[2023-09-25] MEDS ORDERED: TRAM50TA2 PO (23:29)
[2023-09-25] MEDS ORDERED: TORS20TA2 PO (23:29)
[2023-09-25] MEDS ORDERED: MIRA33506 PO (23:29)
[2023-09-25] MEDS ORDERED: HOME MED LIST COMPLETE! XX SCH (23:30)
[2023-09-26] VITALS (12 sets, daily range): BP systolic 88–125; BP diastolic 50–72; TEMP 97.8–99.9; O2SAT 92–100
[2023-09-26] MEDS: NS IV ONE (01:12)
[2023-09-26] MEDS: CEFEPIME HCL 2 GM in D5W MINI-BAG PLUS 50 ML IV ONE (02:12)
[2023-09-26] MEDS: NS 1,000 ML IV SCH (03:55)
[2023-09-26] MEDS ORDERED: ONDANSETRON 4MG 2ML VIAL IV PRN (03:55)
[2023-09-26] MEDS: TAMSULOSIN 0.4 MG CAP PO ONE (06:41)
[2023-09-26] MEDS: ULTRACET TAB PO PRN ×2 (06:41→15:51)
[2023-09-26 07:14] LABS: ALBUMIN 2.2 G/DL (3.2-5.2); BILIRUBIN,TOTAL 0.8 MG/DL (0.3-1.2); CALCIUM LEVEL 8.3 MG/DL (8.3-10.6); CREATININE FOR GFR 2.67 MG/DL (0.70-1.30); GLOMERULAR FILTRATION RATE 25.3 (>42)
[2023-09-26] MEDS: AMIODARONE 200 MG TAB (PACERONE) PO SCH (10:28)
[2023-09-26] MEDS: allopurinoL 100 MG TAB PO SCH (10:28)
[2023-09-26] MEDS: GABAPENTIN 300 MG CAP PO SCH (10:28)
[2023-09-26] MEDS: FINASTERIDE 5MG TAB PO SCH (10:29)
[2023-09-26] MEDS: ACETAMINOPHEN 500 MG TAB PO SCH (12:23)
[2023-09-26] MEDS: LIDOCAINE 5% (LIDODERM) PATCH TD SCH (12:23)
[2023-09-26 17:06] LABS: HEMATOCRIT 24.5 % (42.0-52.0); HEMOGLOBIN 7.7 g/dl (13.5-17.5); MEAN CORPUSCULAR HEMOGLOBIN 32.5 pg (27.0-33.0); MEAN CORPUSCULAR HGB CONC 31.4 g/dl (32.0-36.5); MEAN CORPUSCULAR VOLUME 103.4 fl (80.0-96.0); PLATELET COUNT, AUTOMATED 163 10^3/uL (150-450); RED BLOOD COUNT 2.37 10^6/uL (4.30-6.10); WHITE BLOOD COUNT 12.6 10^3/uL (4.0-10.0)
[2023-09-26] MEDS ORDERED: HOME MED LIST COMPLETE! XX SCH (18:15)
[2023-09-27] VITALS (8 sets, daily range): BP systolic 86–104; BP diastolic 46–70; TEMP 97.1–97.7; O2SAT 92–98
[2023-09-27 07:59] LABS: HEMATOCRIT 23.2 % (42.0-52.0); HEMOGLOBIN 7.2 g/dl (13.5-17.5); MEAN CORPUSCULAR HEMOGLOBIN 32.3 pg (27.0-33.0); PLATELET COUNT, AUTOMATED 157 10^3/uL (150-450); RED BLOOD COUNT 2.23 10^6/uL (4.30-6.10); WHITE BLOOD COUNT 12.5 10^3/uL (4.0-10.0)
[2023-09-27] MEDS: TAMSULOSIN 0.4 MG CAP PO SCH (08:23)
[2023-09-27] MEDS ORDERED: PILL CUTTER 1 EACH XX ONE (08:26)
[2023-09-27] MEDS: FAMOTIDINE 20 MG TAB PO SCH (08:27)
[2023-09-27 16:04] LABS: HEMATOCRIT 26.3 % (42.0-52.0); HEMOGLOBIN 8.2 g/dl (13.5-17.5); MEAN CORPUSCULAR HGB CONC 31.2 g/dl (32.0-36.5); MEAN CORPUSCULAR VOLUME 102.7 fl (80.0-96.0); PLATELET COUNT, AUTOMATED 171 10^3/uL (150-450); RED BLOOD COUNT 2.56 10^6/uL (4.30-6.10); WHITE BLOOD COUNT 12.1 10^3/uL (4.0-10.0)
[2023-09-27 16:28] LABS: CALCIUM LEVEL 8.3 MG/DL (8.3-10.6); CREATININE FOR GFR 2.49 MG/DL (0.70-1.30); GLOMERULAR FILTRATION RATE 27.4 (>42); POTASSIUM SERUM 4.8 MMOL/L (3.5-5.1)
[2023-09-28] VITALS (8 sets, daily range): BP systolic 91–101; BP diastolic 57–68; TEMP 97.7–98.6; O2SAT 94–100
[2023-09-28 06:49] LABS: BASO % 0.3 % (0.0-1.0); EOS # 0.3 10^3/uL (0.0-0.5); EOS % 2.5 % (0.0-3.0); HEMATOCRIT 24.3 % (42.0-52.0); HEMOGLOBIN 7.4 g/dl (13.5-17.5); LYMPH # 0.5 10^3/uL (1.5-5.0); LYMPH % 4.9 % (24.0-44.0); MEAN CORPUSCULAR HEMOGLOBIN 31.1 pg (27.0-33.0); MEAN CORPUSCULAR HGB CONC 30.5 g/dl (32.0-36.5); MEAN CORPUSCULAR VOLUME 102.1 fl (80.0-96.0); MONO # 0.7 10^3/uL (0.0-0.8); MONO % 7.4 % (2.0-8.0); NEUTROPHILS # 8.4 10^3/uL (1.5-8.5); NEUTROPHILS % 84.4 % (36.0-66.0); PLATELET COUNT, AUTOMATED 160 10^3/uL (150-450); RED BLOOD COUNT 2.38 10^6/uL (4.30-6.10)
[2023-09-28 07:20] LABS: CALCIUM LEVEL 8.1 MG/DL (8.3-10.6); CREATININE FOR GFR 2.49 MG/DL (0.70-1.30); GLOMERULAR FILTRATION RATE 27.4 (>42); POTASSIUM SERUM 4.2 MMOL/L (3.5-5.1)
[2023-09-28 19:23] LABS: HEMATOCRIT 27.1 % (42.0-52.0); HEMOGLOBIN 8.3 g/dl (13.5-17.5)
[2023-09-29 05:45] VITALS: BP 99/60; TEMP 97.7; O2SAT 96
[2023-09-29 07:00] LABS: BASO % 0.5 % (0.0-1.0); EOS # 0.3 10^3/uL (0.0-0.5); EOS % 3.9 % (0.0-3.0); HEMATOCRIT 25.5 % (42.0-52.0); HEMOGLOBIN 8.1 g/dl (13.5-17.5); LYMPH # 0.6 10^3/uL (1.5-5.0); MEAN CORPUSCULAR HEMOGLOBIN 32.1 pg (27.0-33.0); MEAN CORPUSCULAR HGB CONC 31.8 g/dl (32.0-36.5); MEAN CORPUSCULAR VOLUME 101.2 fl (80.0-96.0); MONO # 0.7 10^3/uL (0.0-0.8); MONO % 7.8 % (2.0-8.0); NEUTROPHILS % 80.3 % (36.0-66.0); PLATELET COUNT, AUTOMATED 190 10^3/uL (150-450); RED BLOOD COUNT 2.52 10^6/uL (4.30-6.10); WHITE BLOOD COUNT 8.7 10^3/uL (4.0-10.0)
[2023-09-29 07:27] LABS: CALCIUM LEVEL 8.5 MG/DL (8.3-10.6); CREATININE FOR GFR 2.49 MG/DL (0.70-1.30); GLOMERULAR FILTRATION RATE 27.4 (>42); POTASSIUM SERUM 4.3 MMOL/L (3.5-5.1)
[2023-09-29 08:09] VITALS: BP 102/64
[2023-09-29 12:17] LABS: MEAN CORPUSCULAR HEMOGLOBIN 31.6 pg (27.0-33.0); MEAN CORPUSCULAR HGB CONC 30.8 g/dl (32.0-36.5); MEAN CORPUSCULAR VOLUME 102.8 fl (80.0-96.0); PLATELET COUNT, AUTOMATED 190 10^3/uL (150-450); RED BLOOD COUNT 2.53 10^6/uL (4.30-6.10); WHITE BLOOD COUNT 8.5 10^3/uL (4.0-10.0)
[2023-09-29 14:00] VITALS: BP 104/65; TEMP 98.1; O2SAT 91
[2023-09-29] MEDS: FLUTICASONE PROP 0.05% NASAL SPRAY 16 GM (FLONASE) NARES PRN (16:50)
[2023-09-29 17:04] VITALS: BP 104/60; TEMP 98.8; O2SAT 98
[2023-09-29 18:40] LABS: HEMATOCRIT 30.1 % (42.0-52.0); HEMOGLOBIN 9.3 g/dl (13.5-17.5)
[2023-09-29 20:14] VITALS: BP 101/68; TEMP 99; O2SAT 97
[2023-09-30 04:52] VITALS: BP 102/68; TEMP 97.7; O2SAT 96
[2023-09-30] MEDS ORDERED: BISACODYL 10MG SUPP PR PRN (05:00)
[2023-09-30 06:05] LABS: BASO % 0.4 % (0.0-1.0); EOS # 0.4 10^3/uL (0.0-0.5); EOS % 4.3 % (0.0-3.0); HEMATOCRIT 27.9 % (42.0-52.0); HEMOGLOBIN 8.5 g/dl (13.5-17.5); LYMPH # 0.7 10^3/uL (1.5-5.0); LYMPH % 8.8 % (24.0-44.0); MEAN CORPUSCULAR HEMOGLOBIN 31.4 pg (27.0-33.0); MEAN CORPUSCULAR HGB CONC 30.5 g/dl (32.0-36.5); MONO # 0.8 10^3/uL (0.0-0.8); MONO % 9.5 % (2.0-8.0); NEUTROPHILS # 6.3 10^3/uL (1.5-8.5); NEUTROPHILS % 76.4 % (36.0-66.0); PLATELET COUNT, AUTOMATED 194 10^3/uL (150-450); RED BLOOD COUNT 2.71 10^6/uL (4.30-6.10); WHITE BLOOD COUNT 8.2 10^3/uL (4.0-10.0)
[2023-09-30 06:33] LABS: CALCIUM LEVEL 8.7 MG/DL (8.3-10.6); CREATININE FOR GFR 2.42 MG/DL (0.70-1.30); GLOMERULAR FILTRATION RATE 28.4 (>42); POTASSIUM SERUM 5.1 MMOL/L (3.5-5.1)
[2023-09-30] MEDS: MIRALAX *UNIT DOSE* 17GM PACKET PO SCH (08:50)
[2023-09-30] MEDS: SENOKOT S TAB PO SCH ×2 (08:51→21:06)
[2023-09-30] MEDS: TORSEMIDE (DEMADEX) 50 MG PER 1/2 TAB PO ONE (13:00)
[2023-09-30 14:00] VITALS: BP 105/65; TEMP 97.3; O2SAT 98
[2023-09-30 21:00] VITALS: BP 118/73; TEMP 97.9; O2SAT 98
[2023-10-01 06:00] VITALS: BP 94/64; TEMP 97.7; O2SAT 95
[2023-10-01 06:21] LABS: BASO % 0.6 % (0.0-1.0); EOS # 0.4 10^3/uL (0.0-0.5); HEMATOCRIT 29.4 % (42.0-52.0); HEMOGLOBIN 8.9 g/dl (13.5-17.5); LYMPH # 0.8 10^3/uL (1.5-5.0); LYMPH % 10.5 % (24.0-44.0); MEAN CORPUSCULAR HEMOGLOBIN 30.8 pg (27.0-33.0); MEAN CORPUSCULAR HGB CONC 30.3 g/dl (32.0-36.5); MEAN CORPUSCULAR VOLUME 101.7 fl (80.0-96.0); MONO # 0.6 10^3/uL (0.0-0.8); MONO % 8.9 % (2.0-8.0); NEUTROPHILS # 5.4 10^3/uL (1.5-8.5); NEUTROPHILS % 74.3 % (36.0-66.0); PLATELET COUNT, AUTOMATED 202 10^3/uL (150-450); RED BLOOD COUNT 2.89 10^6/uL (4.30-6.10); WHITE BLOOD COUNT 7.2 10^3/uL (4.0-10.0)
[2023-10-01 06:42] LABS: CALCIUM LEVEL 8.6 MG/DL (8.3-10.6); CREATININE FOR GFR 2.28 MG/DL (0.70-1.30); GLOMERULAR FILTRATION RATE 30.4 (>42); POTASSIUM SERUM 4.5 MMOL/L (3.5-5.1)
[2023-10-01] MEDS: ceFAZolin SOD 1 GM in D5W MINI-BAG PLUS 50 ML IV SCH (11:01)
[2023-10-01] MEDS: TORSEMIDE 20 MG TAB PO ONE (11:19)
[2023-10-01 14:00] VITALS: BP 91/54; TEMP 97.5; O2SAT 98
[2023-10-01 22:00] VITALS: BP 104/65; TEMP 97.9; O2SAT 93
[2023-10-02 06:00] VITALS: BP 103/65; TEMP 97.9; O2SAT 94
[2023-10-02 06:05] LABS: BASO % 0.5 % (0.0-1.0); EOS # 0.4 10^3/uL (0.0-0.5); EOS % 5.7 % (0.0-3.0); HEMATOCRIT 27.6 % (42.0-52.0); HEMOGLOBIN 8.6 g/dl (13.5-17.5); LYMPH # 0.8 10^3/uL (1.5-5.0); LYMPH % 11.2 % (24.0-44.0); MEAN CORPUSCULAR HEMOGLOBIN 31.9 pg (27.0-33.0); MEAN CORPUSCULAR HGB CONC 31.2 g/dl (32.0-36.5); MEAN CORPUSCULAR VOLUME 102.2 fl (80.0-96.0); MONO # 0.7 10^3/uL (0.0-0.8); MONO % 9.4 % (2.0-8.0); NEUTROPHILS # 5.4 10^3/uL (1.5-8.5); NEUTROPHILS % 72.4 % (36.0-66.0); PLATELET COUNT, AUTOMATED 223 10^3/uL (150-450); WHITE BLOOD COUNT 7.4 10^3/uL (4.0-10.0)
[2023-10-02 06:30] LABS: CALCIUM LEVEL 8.5 MG/DL (8.3-10.6); CREATININE FOR GFR 2.43 MG/DL (0.70-1.30); GLOMERULAR FILTRATION RATE 28.2 (>42); POTASSIUM SERUM 4.6 MMOL/L (3.5-5.1)
[2023-10-02] MEDS: TORSEMIDE 20 MG TAB PO SCH (08:32)
[2023-10-02 11:28] LABS: INR 1.25; PROTHROMBIN TIME 15.3 SECONDS (12.5-14.5)
[2023-10-02] MEDS ORDERED: ONDANSETRON 4MG 2ML VIAL As Ordered ONE (13:38)
[2023-10-02] MEDS ORDERED: ROCURONIUM BROMIDE 50MG/5ML VIAL As Ordered ONE (13:38)
[2023-10-02] MEDS ORDERED: VASOPRESSIN INJ 20UNITS/ML 1ML VIAL As Ordered ONE (13:38)
[2023-10-02] MEDS ORDERED: LIDOCAINE 2% 100MG/5ML SDV (FOR ANES.) As Ordered ONE (13:38)
[2023-10-02] MEDS ORDERED: NOREPINEPHRINE 4MG/4ML AMP As Ordered ONE (13:38)
[2023-10-02] MEDS ORDERED: fentaNYL 100 MCG/2 ML INJECTION As Ordered ONE (13:38)
[2023-10-02] MEDS ORDERED: propofoL 200 MG/20 ML VIAL As Ordered ONE (13:38)
[2023-10-02] MEDS ORDERED: SUGAMMADEX SODIUM 500 MG/5 ML VIAL (BRIDION) As Ordered ONE (14:23)
[2023-10-02] MEDS: TRANEXAMIC ACID 100 MG/ML 10ML VIAL As Ordered ONE (14:44)
[2023-10-02] MEDS: ceFAZolin 1GM VIAL As Ordered ONE (14:44)
[2023-10-02] MEDS: LR 1,000 ML IV SCH (15:05)
[2023-10-02] MEDS ORDERED: HYDROMORPHONE HCL 0.5 MG/ 0.5 ML SYRINGE IV PRN (15:05)
[2023-10-02] MEDS ORDERED: ONDANSETRON 4MG 2ML VIAL IV PRN (15:05)
[2023-10-02] MEDS: fentaNYL 100 MCG/2 ML INJECTION IV PRN (15:40)
[2023-10-02] MEDS: oxyCODONE 5MG TAB PO PRN (15:54)
[2023-10-02 16:12] VITALS: BP 103/63; TEMP 97.5; O2SAT 94
[2023-10-02 17:00] VITALS: BP 101/60; TEMP 97.7; O2SAT 97
[2023-10-02 18:00] VITALS: BP 100/59; TEMP 97; O2SAT 94
[2023-10-02 19:45] VITALS: BP 92/60; TEMP 97.2; O2SAT 98
[2023-10-02 20:57] VITALS: BP 90/60; TEMP 97.5; O2SAT 93
[2023-10-03] VITALS (8 sets, daily range): BP systolic 90–98; BP diastolic 44–72; TEMP 96.8–98.5; O2SAT 95–98
[2023-10-03 06:32] LABS: BASO % 0.1 % (0.0-1.0); HEMATOCRIT 24.1 % (42.0-52.0); HEMOGLOBIN 7.3 g/dl (13.5-17.5); LYMPH # 0.4 10^3/uL (1.5-5.0); LYMPH % 4.8 % (24.0-44.0); MEAN CORPUSCULAR HEMOGLOBIN 31.1 pg (27.0-33.0); MEAN CORPUSCULAR HGB CONC 30.3 g/dl (32.0-36.5); MEAN CORPUSCULAR VOLUME 102.6 fl (80.0-96.0); MONO # 0.2 10^3/uL (0.0-0.8); MONO % 2.1 % (2.0-8.0); NEUTROPHILS # 7.3 10^3/uL (1.5-8.5); NEUTROPHILS % 92.1 % (36.0-66.0); PLATELET COUNT, AUTOMATED 204 10^3/uL (150-450); RED BLOOD COUNT 2.35 10^6/uL (4.30-6.10); WHITE BLOOD COUNT 7.9 10^3/uL (4.0-10.0)
[2023-10-03 06:57] LABS: CALCIUM LEVEL 8.2 MG/DL (8.3-10.6); CREATININE FOR GFR 2.5 MG/DL (0.70-1.30); GLOMERULAR FILTRATION RATE 27.3 (>42); POTASSIUM SERUM 5.3 MMOL/L (3.5-5.1)
[2023-10-03] MEDS: TORSEMIDE 20 MG TAB PO SCH (17:21)
[2023-10-04] VITALS (7 sets, daily range): BP systolic 90–109; BP diastolic 54–79; TEMP 97–97.8; O2SAT 97–100
[2023-10-04 07:00] LABS: BASO % 0.4 % (0.0-1.0); EOS % 0.2 % (0.0-3.0); HEMATOCRIT 24.7 % (42.0-52.0); HEMOGLOBIN 7.5 g/dl (13.5-17.5); LYMPH # 0.6 10^3/uL (1.5-5.0); MEAN CORPUSCULAR HEMOGLOBIN 30.7 pg (27.0-33.0); MEAN CORPUSCULAR HGB CONC 30.4 g/dl (32.0-36.5); MEAN CORPUSCULAR VOLUME 101.2 fl (80.0-96.0); MONO # 0.6 10^3/uL (0.0-0.8); MONO % 7.7 % (2.0-8.0); NEUTROPHILS # 6.8 10^3/uL (1.5-8.5); PLATELET COUNT, AUTOMATED 220 10^3/uL (150-450); RED BLOOD COUNT 2.44 10^6/uL (4.30-6.10); WHITE BLOOD COUNT 8.2 10^3/uL (4.0-10.0)
[2023-10-04 07:21] LABS: CALCIUM LEVEL 8.1 MG/DL (8.3-10.6); CREATININE FOR GFR 2.86 MG/DL (0.70-1.30); GLOMERULAR FILTRATION RATE 23.4 (>42); POTASSIUM SERUM 5.2 MMOL/L (3.5-5.1)
[2023-10-04] MEDS: PATIROMER SORBITEX CALCIUM 8.4 GM POWDER PACKET (VELTASSA) PO ONE (14:05)
[2023-10-04 18:26] LABS: HEMATOCRIT 30.3 % (42.0-52.0); HEMOGLOBIN 9.4 g/dl (13.5-17.5); MEAN CORPUSCULAR HEMOGLOBIN 30.8 pg (27.0-33.0); MEAN CORPUSCULAR VOLUME 99.3 fl (80.0-96.0); PLATELET COUNT, AUTOMATED 240 10^3/uL (150-450); RED BLOOD COUNT 3.05 10^6/uL (4.30-6.10); WHITE BLOOD COUNT 8.2 10^3/uL (4.0-10.0)
[2023-10-04] MEDS: ALBUTEROL 90 MCG/ACT 8GM HFA INHALER INH SCH (20:00)
[2023-10-04] MEDS: ceFAZolin SOD 1 GM in D5W MINI-BAG PLUS 50 ML IV SCH (21:58)
[2023-10-05 08:03] LABS: BASO % 0.6 % (0.0-1.0); EOS # 0.2 10^3/uL (0.0-0.5); EOS % 3.2 % (0.0-3.0); HEMATOCRIT 27.9 % (42.0-52.0); HEMOGLOBIN 8.6 g/dl (13.5-17.5); LYMPH # 0.7 10^3/uL (1.5-5.0); MEAN CORPUSCULAR HEMOGLOBIN 31.4 pg (27.0-33.0); MEAN CORPUSCULAR HGB CONC 30.8 g/dl (32.0-36.5); MEAN CORPUSCULAR VOLUME 101.8 fl (80.0-96.0); MONO # 0.8 10^3/uL (0.0-0.8); MONO % 11.3 % (2.0-8.0); NEUTROPHILS # 4.6 10^3/uL (1.5-8.5); PLATELET COUNT, AUTOMATED 214 10^3/uL (150-450); RED BLOOD COUNT 2.74 10^6/uL (4.30-6.10); WHITE BLOOD COUNT 6.6 10^3/uL (4.0-10.0)
[2023-10-05 08:42] LABS: CALCIUM LEVEL 7.8 MG/DL (8.3-10.6); CREATININE FOR GFR 2.84 MG/DL (0.70-1.30); GLOMERULAR FILTRATION RATE 23.6 (>42); POTASSIUM SERUM 5.2 MMOL/L (3.5-5.1)
[2023-10-05] MEDS: DARBEPOETIN 100MCG/0.5ML *NON-DIALYSIS* SYRINGE SC SCH (09:00)
[2023-10-05] MEDS ORDERED: KETOROLAC 60MG 2ML VIAL As Ordered ONE (11:28)
[2023-10-05] MEDS ORDERED: ACETAMINOPHEN 1000MG 100ML IV BAG As Ordered ONE (13:05)
[2023-10-05 14:43] VITALS: BP 104/60; TEMP 97.2; O2SAT 99
[2023-10-05 15:15] VITALS: BP 99/65; TEMP 97; O2SAT 98
[2023-10-05 15:45] VITALS: BP 95/59; TEMP 97.8; O2SAT 98
[2023-10-05 20:25] VITALS: BP 119/62; TEMP 97.3; O2SAT 96
[2023-10-06 06:00] VITALS: BP 105/59; TEMP 97.2; O2SAT 98
[2023-10-06] MEDS: HEPARIN SOD (PORCINE) 5000UNITS/ML 1ML VIAL/SYRINGE SQ SCH (09:00)
[2023-10-06 09:11] LABS: BASO % 0.2 % (0.0-1.0); HEMATOCRIT 24.3 % (42.0-52.0); HEMOGLOBIN 7.5 g/dl (13.5-17.5); LYMPH # 0.4 10^3/uL (1.5-5.0); MEAN CORPUSCULAR HEMOGLOBIN 31.1 pg (27.0-33.0); MEAN CORPUSCULAR HGB CONC 30.9 g/dl (32.0-36.5); MEAN CORPUSCULAR VOLUME 100.8 fl (80.0-96.0); MONO # 0.3 10^3/uL (0.0-0.8); MONO % 4.8 % (2.0-8.0); NEUTROPHILS # 4.8 10^3/uL (1.5-8.5); NEUTROPHILS % 86.2 % (36.0-66.0); PLATELET COUNT, AUTOMATED 175 10^3/uL (150-450); RED BLOOD COUNT 2.41 10^6/uL (4.30-6.10); WHITE BLOOD COUNT 5.6 10^3/uL (4.0-10.0)
[2023-10-06 09:45] LABS: CALCIUM LEVEL 7.9 MG/DL (8.3-10.6); CREATININE FOR GFR 2.72 MG/DL (0.70-1.30); GLOMERULAR FILTRATION RATE 24.8 (>42); POTASSIUM SERUM 5.5 MMOL/L (3.5-5.1)
[2023-10-06] MEDS: PATIROMER SORBITEX CALCIUM 8.4 GM POWDER PACKET (VELTASSA) PO ONE (11:20)
[2023-10-06 14:09] VITALS: BP 111/64; TEMP 97.2; O2SAT 97
[2023-10-06 21:10] VITALS: BP 106/60; TEMP 97.5; O2SAT 93
[2023-10-07 06:20] VITALS: BP 115/75; TEMP 96.6; O2SAT 97
[2023-10-07 08:08] LABS: BASO % 0.5 % (0.0-1.0); EOS % 0.4 % (0.0-3.0); HEMATOCRIT 27.5 % (42.0-52.0); HEMOGLOBIN 8.3 g/dl (13.5-17.5); LYMPH # 0.7 10^3/uL (1.5-5.0); LYMPH % 12.3 % (24.0-44.0); MEAN CORPUSCULAR HEMOGLOBIN 30.4 pg (27.0-33.0); MEAN CORPUSCULAR HGB CONC 30.2 g/dl (32.0-36.5); MEAN CORPUSCULAR VOLUME 100.7 fl (80.0-96.0); MONO # 0.4 10^3/uL (0.0-0.8); MONO % 6.9 % (2.0-8.0); NEUTROPHILS # 4.4 10^3/uL (1.5-8.5); NEUTROPHILS % 78.3 % (36.0-66.0); PLATELET COUNT, AUTOMATED 205 10^3/uL (150-450); RED BLOOD COUNT 2.73 10^6/uL (4.30-6.10); WHITE BLOOD COUNT 5.6 10^3/uL (4.0-10.0)
[2023-10-07 08:34] LABS: CALCIUM LEVEL 8.4 MG/DL (8.3-10.6); CREATININE FOR GFR 2.79 MG/DL (0.70-1.30); GLOMERULAR FILTRATION RATE 24.1 (>42); POTASSIUM SERUM 4.9 MMOL/L (3.5-5.1)
[2023-10-07] MEDS: FERRIC CARBOXYMALTOSE INJ 750 MG, VIAL MATE ADAPTER 1 EACH in NS 250 ML IV ONE (12:32)
[2023-10-07 14:28] VITALS: BP 107/72; TEMP 97.3; O2SAT 94
[2023-10-07 21:36] VITALS: BP 108/52; TEMP 97.3; O2SAT 96
[2023-10-08 05:48] VITALS: BP 113/74; TEMP 97.3; O2SAT 95
[2023-10-08 05:50] LABS: BASO % 0.3 % (0.0-1.0); EOS # 0.1 10^3/uL (0.0-0.5); EOS % 1.6 % (0.0-3.0); HEMATOCRIT 27.4 % (42.0-52.0); HEMOGLOBIN 8.5 g/dl (13.5-17.5); LYMPH # 0.9 10^3/uL (1.5-5.0); LYMPH % 13.6 % (24.0-44.0); MEAN CORPUSCULAR HEMOGLOBIN 30.7 pg (27.0-33.0); MEAN CORPUSCULAR VOLUME 98.9 fl (80.0-96.0); MONO # 0.6 10^3/uL (0.0-0.8); MONO % 8.7 % (2.0-8.0); NEUTROPHILS % 74.2 % (36.0-66.0); PLATELET COUNT, AUTOMATED 186 10^3/uL (150-450); RED BLOOD COUNT 2.77 10^6/uL (4.30-6.10); WHITE BLOOD COUNT 6.8 10^3/uL (4.0-10.0)
[2023-10-08 06:12] LABS: CALCIUM LEVEL 8.2 MG/DL (8.3-10.6); CREATININE FOR GFR 2.84 MG/DL (0.70-1.30); GLOMERULAR FILTRATION RATE 23.6 (>42); POTASSIUM SERUM 5.3 MMOL/L (3.5-5.1)
[2023-10-08] MEDS: PATIROMER SORBITEX CALCIUM 8.4 GM POWDER PACKET (VELTASSA) PO ONE (09:36)
[2023-10-08 14:00] VITALS: BP 104/67; TEMP 97.3; O2SAT 98
[2023-10-08 20:12] VITALS: BP 108/69; TEMP 97.3; O2SAT 97
[2023-10-09 05:43] VITALS: BP 108/67; TEMP 97.3; O2SAT 98
[2023-10-09 07:01] LABS: BASO % 0.5 % (0.0-1.0); EOS # 0.1 10^3/uL (0.0-0.5); EOS % 2.2 % (0.0-3.0); HEMATOCRIT 29.9 % (42.0-52.0); HEMOGLOBIN 9.1 g/dl (13.5-17.5); LYMPH # 0.7 10^3/uL (1.5-5.0); LYMPH % 11.9 % (24.0-44.0); MEAN CORPUSCULAR HEMOGLOBIN 30.7 pg (27.0-33.0); MEAN CORPUSCULAR HGB CONC 30.4 g/dl (32.0-36.5); MONO # 0.5 10^3/uL (0.0-0.8); MONO % 7.7 % (2.0-8.0); NEUTROPHILS # 4.8 10^3/uL (1.5-8.5); NEUTROPHILS % 76.4 % (36.0-66.0); PLATELET COUNT, AUTOMATED 211 10^3/uL (150-450); RED BLOOD COUNT 2.96 10^6/uL (4.30-6.10); WHITE BLOOD COUNT 6.2 10^3/uL (4.0-10.0)
[2023-10-09 07:29] LABS: CALCIUM LEVEL 8.4 MG/DL (8.3-10.6); CREATININE FOR GFR 2.75 MG/DL (0.70-1.30); GLOMERULAR FILTRATION RATE 24.5 (>42); POTASSIUM SERUM 4.2 MMOL/L (3.5-5.1)
[2023-10-09 08:30] VITALS: BP 107/67; TEMP 97.4; O2SAT 98
[2023-10-09 14:30] VITALS: BP 106/65; TEMP 97.3; O2SAT 99
[2023-10-09 17:18] VITALS: BP 102/60
[2023-10-09 20:59] VITALS: BP 99/48; TEMP 97.7; O2SAT 98
[2023-10-10 06:17] VITALS: BP 114/75; TEMP 97.3; O2SAT 97
[2023-10-10 07:20] LABS: BASO % 0.4 % (0.0-1.0); EOS # 0.2 10^3/uL (0.0-0.5); EOS % 3.2 % (0.0-3.0); HEMATOCRIT 27.7 % (42.0-52.0); HEMOGLOBIN 8.6 g/dl (13.5-17.5); LYMPH # 0.6 10^3/uL (1.5-5.0); LYMPH % 11.6 % (24.0-44.0); MEAN CORPUSCULAR HEMOGLOBIN 31.2 pg (27.0-33.0); MEAN CORPUSCULAR VOLUME 100.4 fl (80.0-96.0); MONO # 0.5 10^3/uL (0.0-0.8); MONO % 9.1 % (2.0-8.0); NEUTROPHILS # 3.9 10^3/uL (1.5-8.5); NEUTROPHILS % 74.6 % (36.0-66.0); PLATELET COUNT, AUTOMATED 173 10^3/uL (150-450); RED BLOOD COUNT 2.76 10^6/uL (4.30-6.10); WHITE BLOOD COUNT 5.3 10^3/uL (4.0-10.0)
[2023-10-10 07:43] LABS: CALCIUM LEVEL 7.8 MG/DL (8.3-10.6); CREATININE FOR GFR 2.8 MG/DL (0.70-1.30); POTASSIUM SERUM 4.3 MMOL/L (3.5-5.1)
[2023-10-10 14:00] VITALS: BP 99/56; TEMP 97.2; O2SAT 97
[2023-10-10 19:57] VITALS: BP 97/56; TEMP 97; O2SAT 96
[2023-10-11 05:09] VITALS: BP 109/65; TEMP 97.3; O2SAT 97
[2023-10-11 06:14] LABS: BASO % 0.2 % (0.0-1.0); EOS # 0.2 10^3/uL (0.0-0.5); EOS % 4.1 % (0.0-3.0); HEMATOCRIT 27.5 % (42.0-52.0); HEMOGLOBIN 8.6 g/dl (13.5-17.5); LYMPH # 0.8 10^3/uL (1.5-5.0); LYMPH % 18.8 % (24.0-44.0); MEAN CORPUSCULAR HEMOGLOBIN 31.7 pg (27.0-33.0); MEAN CORPUSCULAR HGB CONC 31.3 g/dl (32.0-36.5); MEAN CORPUSCULAR VOLUME 101.5 fl (80.0-96.0); MONO # 0.4 10^3/uL (0.0-0.8); MONO % 9.2 % (2.0-8.0); NEUTROPHILS # 2.9 10^3/uL (1.5-8.5); NEUTROPHILS % 66.8 % (36.0-66.0); PLATELET COUNT, AUTOMATED 178 10^3/uL (150-450); RED BLOOD COUNT 2.71 10^6/uL (4.30-6.10); WHITE BLOOD COUNT 4.4 10^3/uL (4.0-10.0)
[2023-10-11 06:40] LABS: CREATININE FOR GFR 2.72 MG/DL (0.70-1.30); GLOMERULAR FILTRATION RATE 24.8 (>42); POTASSIUM SERUM 4.2 MMOL/L (3.5-5.1)
[2023-10-11] MEDS: TORSEMIDE 20 MG TAB PO SCH (08:21)
[2023-10-11 13:08] VITALS: BP 108/65; TEMP 97.3; O2SAT 96
[2023-10-11 20:26] VITALS: BP 103/63; TEMP 97.7; O2SAT 98
[2023-10-12 05:19] VITALS: BP 103/60; TEMP 97.5; O2SAT 97
[2023-10-12 06:08] LABS: BASO % 0.8 % (0.0-1.0); EOS # 0.2 10^3/uL (0.0-0.5); EOS % 4.9 % (0.0-3.0); HEMATOCRIT 27.4 % (42.0-52.0); HEMOGLOBIN 8.6 g/dl (13.5-17.5); LYMPH # 0.8 10^3/uL (1.5-5.0); LYMPH % 20.6 % (24.0-44.0); MEAN CORPUSCULAR HEMOGLOBIN 31.6 pg (27.0-33.0); MEAN CORPUSCULAR HGB CONC 31.4 g/dl (32.0-36.5); MEAN CORPUSCULAR VOLUME 100.7 fl (80.0-96.0); MONO # 0.4 10^3/uL (0.0-0.8); MONO % 11.2 % (2.0-8.0); NEUTROPHILS # 2.4 10^3/uL (1.5-8.5); NEUTROPHILS % 61.5 % (36.0-66.0); PLATELET COUNT, AUTOMATED 159 10^3/uL (150-450); RED BLOOD COUNT 2.72 10^6/uL (4.30-6.10); WHITE BLOOD COUNT 3.8 10^3/uL (4.0-10.0)
[2023-10-12 06:37] LABS: CALCIUM LEVEL 8.5 MG/DL (8.3-10.6); CREATININE FOR GFR 2.67 MG/DL (0.70-1.30); GLOMERULAR FILTRATION RATE 25.3 (>42)
[2023-10-12 16:00] VITALS: BP 105/59; TEMP 97; O2SAT 99
[2023-10-12 16:30] VITALS: BP 103/59; TEMP 97.3; O2SAT 95
[2023-10-12 17:30] VITALS: BP 120/70; TEMP 97.5; O2SAT 96
[2023-10-12 18:30] VITALS: BP 121/71; TEMP 97.3; O2SAT 95
[2023-10-12 20:30] VITALS: BP 123/71; TEMP 97.3; O2SAT 94
[2023-10-13 00:30] VITALS: BP 109/68; TEMP 97.5; O2SAT 96
[2023-10-13 05:10] VITALS: BP 116/73; TEMP 97.3; O2SAT 96
[2023-10-13 07:46] LABS: BASO % 0.3 % (0.0-1.0); HEMATOCRIT 30.2 % (42.0-52.0); HEMOGLOBIN 9.4 g/dl (13.5-17.5); LYMPH # 0.3 10^3/uL (1.5-5.0); LYMPH % 10.7 % (24.0-44.0); MEAN CORPUSCULAR HEMOGLOBIN 31.6 pg (27.0-33.0); MEAN CORPUSCULAR HGB CONC 31.1 g/dl (32.0-36.5); MEAN CORPUSCULAR VOLUME 101.7 fl (80.0-96.0); MONO # 0.1 10^3/uL (0.0-0.8); MONO % 2.8 % (2.0-8.0); NEUTROPHILS # 2.7 10^3/uL (1.5-8.5); NEUTROPHILS % 85.6 % (36.0-66.0); PLATELET COUNT, AUTOMATED 154 10^3/uL (150-450); RED BLOOD COUNT 2.97 10^6/uL (4.30-6.10); WHITE BLOOD COUNT 3.2 10^3/uL (4.0-10.0)
[2023-10-13 08:13] LABS: C REACTIVE PROTEIN QUANTITATIV 0.9 MG/DL (<1.0)
[2023-10-13 08:25] LABS: ALBUMIN 2.7 G/DL (3.2-5.2); CALCIUM LEVEL 8.4 MG/DL (8.3-10.6); CREATININE FOR GFR 2.46 MG/DL (0.70-1.30); GLOMERULAR FILTRATION RATE 27.8 (>42); PHOSPHORUS LEVEL 3.4 MG/DL (2.4-5.1); POTASSIUM SERUM 5.1 MMOL/L (3.5-5.1)
[2023-10-13 10:00] VITALS: BP 104/57; TEMP 97.9; O2SAT 98
[2023-10-13] MEDS: PATIROMER SORBITEX CALCIUM 8.4 GM POWDER PACKET (VELTASSA) PO ONE (11:28)
[2023-10-13 14:00] VITALS: BP 104/57; TEMP 97.9; O2SAT 97
[2023-10-13 20:03] VITALS: BP 104/57; TEMP 97.5; O2SAT 96
[2023-10-14 05:29] VITALS: BP 103/56; TEMP 97.7; O2SAT 97
[2023-10-14 07:17] LABS: BASO % 0.5 % (0.0-1.0); EOS % 0.7 % (0.0-3.0); HEMATOCRIT 28.6 % (42.0-52.0); HEMOGLOBIN 8.9 g/dl (13.5-17.5); LYMPH # 0.8 10^3/uL (1.5-5.0); LYMPH % 13.3 % (24.0-44.0); MEAN CORPUSCULAR HEMOGLOBIN 31.8 pg (27.0-33.0); MEAN CORPUSCULAR HGB CONC 31.1 g/dl (32.0-36.5); MEAN CORPUSCULAR VOLUME 102.1 fl (80.0-96.0); MONO # 0.4 10^3/uL (0.0-0.8); MONO % 6.8 % (2.0-8.0); NEUTROPHILS # 4.4 10^3/uL (1.5-8.5); NEUTROPHILS % 77.8 % (36.0-66.0); PLATELET COUNT, AUTOMATED 167 10^3/uL (150-450); WHITE BLOOD COUNT 5.6 10^3/uL (4.0-10.0)
[2023-10-14 07:50] LABS: C REACTIVE PROTEIN QUANTITATIV 0.5 MG/DL (<1.0)
[2023-10-14 07:51] LABS: ALBUMIN 2.7 G/DL (3.2-5.2); CALCIUM LEVEL 8.7 MG/DL (8.3-10.6); CREATININE FOR GFR 2.73 MG/DL (0.70-1.30); GLOMERULAR FILTRATION RATE 24.7 (>42); MAGNESIUM LEVEL 1.9 MG/DL (1.8-2.4); PHOSPHORUS LEVEL 3.1 MG/DL (2.4-5.1); POTASSIUM SERUM 4.2 MMOL/L (3.5-5.1)
[2023-10-14] MEDS: AMIODARONE 200 MG TAB (PACERONE) PO SCH (09:02)
[2023-10-14] MEDS ORDERED: AMIO200T49 PO (12:35)
[2023-10-14] MEDS ORDERED: TORS20TA2 PO (12:37)
[2023-10-14 14:00] VITALS: BP 101/57; TEMP 97.5; O2SAT 98
== END 2023-10-14 15:25 | disposition home health service (06) | DRG 501 ==
LOC: M ED 18:05 → M ED INP 09-26 03:52 → ENRESERV 09-26 04:16 → M PCU 09-26 05:44 → M ED INP 09-27 10:09 → M PCU 09-27 10:09 → M MSPAV 09-27 14:57 → M MS5PR 10-03 15:38
PROVIDERS: ADMIT Internal Medicine; ATTEND Internal Medicine
PROC: 30233N1 Transfusion of Nonautologous Red Blood Cells into Peripheral Vein, Percutaneous Approach (ICD-10-PCS; 2023-09-26)
PROC: 0YBH0ZZ Excision of Right Lower Leg, Open Approach (ICD-10-PCS; principal; 2023-10-02 13:00)
PROC: 0YBH0ZZ Excision of Right Lower Leg, Open Approach (ICD-10-PCS; 2023-10-05)
PROC: 0YBH0ZZ Excision of Right Lower Leg, Open Approach (ICD-10-PCS; 2023-10-12)
DX: M79.81 Nontraumatic hematoma of soft tissue (principal); D62 Acute posthemorrhagic anemia; I50.22 Chronic systolic (congestive) heart failure; I96 Gangrene, not elsewhere classified; N18.4 Chronic kidney disease, stage 4 (severe); N17.9 Acute kidney failure, unspecified; J45.909 Unspecified asthma, uncomplicated; K21.9 Gastro-esophageal reflux disease without esophagitis; I48.91 Unspecified atrial fibrillation; G47.33 Obstructive sleep apnea (adult) (pediatric); G62.9 Polyneuropathy, unspecified; I95.89 Other hypotension; M10.9 Gout, unspecified; I25.10 Atherosclerotic heart disease of native coronary artery without angina pectoris; N40.0 Benign prostatic hyperplasia without lower urinary tract symptoms; Z95.1 Presence of aortocoronary bypass graft; G89.29 Other chronic pain; Z88.8 Allergy status to other drugs, medicaments and biological substances; Z79.899 Other long term (current) drug therapy; Z79.01 Long term (current) use of anticoagulants; I89.0 Lymphedema, not elsewhere classified; Z96.653 Presence of artificial knee joint, bilateral; Z96.643 Presence of artificial hip joint, bilateral; R33.9 Retention of urine, unspecified; D63.1 Anemia in chronic kidney disease; Z91.119 Patient's noncompliance with dietary regimen due to unspecified reason; I87.2 Venous insufficiency (chronic) (peripheral); M19.90 Unspecified osteoarthritis, unspecified site

== ENCOUNTER 2023-10-27 10:11 | Observation (INO) | payer MEDICARE, MEDICAID ==
[~2023-10-27] VITALS: Ht 177.8 cm; Wt 102.1 kg
[2023-10-27] VITALS (10 sets, daily range): BP systolic 100–109; BP diastolic 52–67; TEMP 97.2–97.7; O2SAT 94–100
[~2023-10-27 10:11] MED LIST changes: +LIDOCAINE 2% 100MG/5ML SDV (FOR ANES.) As Ordered ONE; +MIDAZOLAM INJ 2MG/2ML VIAL As Ordered ONE; +MIRA33506 PO; +ONDANSETRON 4MG 2ML VIAL As Ordered ONE; +fentaNYL 100 MCG/2 ML INJECTION As Ordered ONE; +propofoL 200 MG/20 ML VIAL As Ordered ONE
[2023-10-27] MEDS: LR 1,000 ML IV SCH ×2 (11:23→14:35)
[2023-10-27] MEDS ORDERED: ETOMIDATE INJ 20MG/10ML VIAL As Ordered ONE (12:49)
[2023-10-27] MEDS: ceFAZolin SOD 2 GM in IV 1 EA IV ONE (13:44)
[2023-10-27] MEDS ORDERED: VASOPRESSIN INJ 20UNITS/ML 1ML VIAL As Ordered ONE (13:50)
[2023-10-27] MEDS ORDERED: ACETAMINOPHEN 1000MG 100ML IV BAG As Ordered ONE (13:55)
[2023-10-27] MEDS ORDERED: PHENYLephrine 500MCG 5ML (100MCG/ML) SYRINGE As Ordered ONE (14:15)
[2023-10-27] MEDS ORDERED: ONDANSETRON 4MG 2ML VIAL IV PRN (14:35)
[2023-10-27] MEDS ORDERED: fentaNYL 100 MCG/2 ML INJECTION IV PRN (14:35)
[2023-10-27] MEDS ORDERED: HYDROMORPHONE HCL 0.5 MG/ 0.5 ML SYRINGE IV PRN (14:35)
[2023-10-27] MEDS ORDERED: oxyCODONE 5MG TAB PO PRN (14:35)
[2023-10-27] MEDS: GENTAMICIN SULF 80MG/2ML VIAL As Ordered ONE (14:37)
[2023-10-27 15:29] LABS: HEMATOCRIT 25.1 % (42.0-52.0); HEMOGLOBIN 7.8 g/dl (13.5-17.5); MEAN CORPUSCULAR HEMOGLOBIN 32.1 pg (27.0-33.0); MEAN CORPUSCULAR HGB CONC 31.1 g/dl (32.0-36.5); MEAN CORPUSCULAR VOLUME 103.3 fl (80.0-96.0); PLATELET COUNT, AUTOMATED 123 10^3/uL (150-450); RED BLOOD COUNT 2.43 10^6/uL (4.30-6.10); WHITE BLOOD COUNT 4.2 10^3/uL (4.0-10.0)
[2023-10-27 15:42] LABS: CALCIUM LEVEL 8.2 MG/DL (8.3-10.6); CREATININE FOR GFR 2.71 MG/DL (0.70-1.30); GLOMERULAR FILTRATION RATE 24.9 (>42); POTASSIUM SERUM 4.7 MMOL/L (3.5-5.1)
[2023-10-27] MEDS ORDERED: ALBUTEROL 90 MCG/ACT 8GM HFA INHALER INH PRN (19:30)
[2023-10-27] MEDS ORDERED: FLUTICASONE PROP 0.05% NASAL SPRAY 16 GM (FLONASE) NARES PRN (19:30)
[2023-10-27] MEDS ORDERED: MIRALAX *UNIT DOSE* 17GM PACKET PO PRN (19:30)
[2023-10-27] MEDS ORDERED: traMADol 50 MG TAB PO PRN (19:30)
[2023-10-27] MEDS ORDERED: ACETAMINOPHEN 500 MG TAB PO PRN (19:30)
[2023-10-27] MEDS ORDERED: TORS20TA2 PO (20:11)
[2023-10-27] MEDS ORDERED: VENTAER INH (20:11)
[2023-10-27] MEDS ORDERED: NYST1POW9 TOP (20:11)
[2023-10-27] MEDS ORDERED: AMIO200T49 PO (20:11)
[2023-10-27] MEDS ORDERED: HOME MED LIST COMPLETE! XX SCH (20:15)
[2023-10-27] MEDS: GABAPENTIN 300 MG CAP PO SCH (20:22)
[2023-10-27] MEDS: LevoFLOXacin 750 MG TABLET PO SCH (20:22)
[2023-10-28] VITALS (8 sets, daily range): BP systolic 103–106; BP diastolic 53–62; TEMP 97.2–98.2; O2SAT 97–99
[2023-10-28 06:09] LABS: HEMATOCRIT 27.3 % (42.0-52.0); HEMOGLOBIN 8.5 g/dl (13.5-17.5); MEAN CORPUSCULAR HEMOGLOBIN 31.1 pg (27.0-33.0); MEAN CORPUSCULAR HGB CONC 31.1 g/dl (32.0-36.5); PLATELET COUNT, AUTOMATED 142 10^3/uL (150-450); RED BLOOD COUNT 2.73 10^6/uL (4.30-6.10); WHITE BLOOD COUNT 3.5 10^3/uL (4.0-10.0)
[2023-10-28 06:25] LABS: CALCIUM LEVEL 8.3 MG/DL (8.3-10.6); CREATININE FOR GFR 2.54 MG/DL (0.70-1.30); GLOMERULAR FILTRATION RATE 26.8 (>42); POTASSIUM SERUM 4.6 MMOL/L (3.5-5.1)
[2023-10-28] MEDS ORDERED: ENOXAPARIN 40MG/0.4ML SYRINGE (J1650 PER 10MG) SC SCH (09:00)
[2023-10-28] MEDS: HEPARIN SOD (PORCINE) 5000UNITS/ML 1ML VIAL/SYRINGE SQ SCH (09:00)
[2023-10-28] MEDS: AMIODARONE 200 MG TAB (PACERONE) PO SCH (09:43)
[2023-10-28] MEDS: allopurinoL 100 MG TAB PO SCH (09:43)
[2023-10-28] MEDS: FINASTERIDE 5MG TAB PO SCH (09:43)
[2023-10-28] MEDS: TORSEMIDE 20 MG TAB PO SCH (09:43)
[2023-10-28] MEDS: ASPIRIN 81MG ENTERIC TABLET PO SCH (09:43)
[2023-10-28] MEDS: TAMSULOSIN 0.4 MG CAP PO SCH (09:44)
[2023-10-28] MEDS ORDERED: LEVO1TAB40 PO (14:17)
[2023-10-28] MEDS ORDERED: ASPI81TAEC PO (14:17)
[2023-10-28] MEDS ORDERED: METO1TAB32 PO (14:17)
[2023-11-06] MEDS ORDERED: METO1TAB32 PO (09:06)
[2023-11-06] MEDS ORDERED: ELIQ2.5T PO (10:52)
[2023-11-26] MEDS ORDERED: ASPI-226 PO (13:29)
== END 2023-10-28 17:20 | disposition home or self-care (01) ==
LOC: M SDC 10:11 → M ED INP 14:54 → INTOOBSV 14:54 → M MS5PR 16:20
PROVIDERS: ADMIT Internal Medicine; ATTEND Internal Medicine
DX: S81.801D Unspecified open wound, right lower leg, subsequent encounter (principal); I48.21 Permanent atrial fibrillation; I50.32 Chronic diastolic (congestive) heart failure; D68.32 Hemorrhagic disorder due to extrinsic circulating anticoagulants; Z79.01 Long term (current) use of anticoagulants; Z79.899 Other long term (current) drug therapy; Z88.8 Allergy status to other drugs, medicaments and biological substances
CPT/HCPCS: 11042; 15271; 36415; 80048; 85027; 86850; 86900; 86901; 86920; 87070; 87075; 87077; 87186; 88304; G0378; J0131; J0690; J1100; J1580; J2250; J2371; J2405; J2598; J3010; P9016; Q4104

== ENCOUNTER 2023-11-04 14:11 | Observation (INO) | payer MEDICARE, MEDICAID ==
[~2023-11-04] VITALS: Ht 177.8 cm; Wt 105.7 kg
[~2023-11-04 14:11] MED LIST changes: -ALBUTEROL SULFATE 2.5MG/0.5ML INH NEB SOLN INH PRN; -EPINEPHrine INJ 1 MG/ML 1ML AMP IM PRN; -IRON SUCROSE 300 MG in NS 250 ML OVER 90 MIN. IV ONE; -LOVE0.8I SC; -METO1TAB32; -NS 1,000 ML IV SCH; -XARE15TA PO; -diphenhydrAMINE 50MG/ML VIAL IV PRN; -methylPREDNISolone 125MG 2ML VIAL IV PRN
[2023-11-04 15:15] VITALS: BP 121/66; TEMP 96.8; O2SAT 100
[2023-11-04] MEDS ORDERED: ACETAMINOPHEN TAB 650MG DOSE (2X325MG) PO PRN (15:20)
[2023-11-04] MEDS ORDERED: MIRALAX *UNIT DOSE* 17GM PACKET PO PRN (17:00)
[2023-11-04] MEDS ORDERED: ALBUTEROL 90 MCG/ACT 8GM HFA INHALER INH PRN (17:00)
[2023-11-04] MEDS ORDERED: traMADol 50 MG TAB PO PRN (17:00)
[2023-11-04] MEDS ORDERED: FLUTICASONE PROP 0.05% NASAL SPRAY 16 GM (FLONASE) NARES PRN (17:00)
[2023-11-04 17:16] LABS: BASO % 0.5 % (0.0-1.0); EOS # 0.1 10^3/uL (0.0-0.5); HEMATOCRIT 32.3 % (42.0-52.0); HEMOGLOBIN 10.2 g/dl (13.5-17.5); LYMPH # 0.5 10^3/uL (1.5-5.0); MEAN CORPUSCULAR HGB CONC 31.6 g/dl (32.0-36.5); MEAN CORPUSCULAR VOLUME 101.3 fl (80.0-96.0); MONO # 0.4 10^3/uL (0.0-0.8); MONO % 10.5 % (2.0-8.0); NEUTROPHILS % 73.5 % (36.0-66.0); PLATELET COUNT, AUTOMATED 136 10^3/uL (150-450); RED BLOOD COUNT 3.19 10^6/uL (4.30-6.10); WHITE BLOOD COUNT 4.1 10^3/uL (4.0-10.0)
[2023-11-04] MEDS ORDERED: LEVO1TAB40 PO (17:22)
[2023-11-04] MEDS ORDERED: HOME MED LIST COMPLETE! XX SCH (17:25)
[2023-11-04] MEDS: ENOXAPARIN 100MG/1ML SYRINGE (J1650 PER 10MG) SC SCH (17:40)
[2023-11-04] MEDS ORDERED: LOVE0.8I SC (17:41)
[2023-11-04 17:44] LABS: ALKALINE PHOSPHATASE 114 U/L (46-116); ALT/SGPT < 9 U/L (7.0-40); AST/SGOT 16 U/L (<34); BILIRUBIN,TOTAL 0.8 MG/DL (0.3-1.2); BLOOD UREA NITROGEN 61 MG/DL (9-23); CALCIUM LEVEL 8.6 MG/DL (8.3-10.6); CARBON DIOXIDE LEVEL 22 MMOL/L (20-31); CHLORIDE LEVEL 109 MMOL/L (98-107); CREATININE FOR GFR 2.85 MG/DL (0.70-1.30); GLOMERULAR FILTRATION RATE 23.5 (>42); GLUCOSE, FASTING 77 MG/DL (74-106); POTASSIUM SERUM 4.2 MMOL/L (3.5-5.1); SODIUM LEVEL 141 MMOL/L (136-145); TOTAL PROTEIN 6.5 G/DL (5.7-8.2)
[2023-11-04] MEDS ORDERED: PILL CUTTER 1 EACH XX PRN (17:55)
[2023-11-04] MEDS: LevoFLOXacin 750 MG TABLET PO SCH (18:14)
[2023-11-04 19:08] VITALS: BP 117/68; TEMP 97; O2SAT 100
[2023-11-04] MEDS: GABAPENTIN 300 MG CAP PO SCH (21:07)
[2023-11-04] MEDS: FAMOTIDINE 20 MG TAB PO SCH (21:07)
[2023-11-04 23:45] VITALS: BP 100/54; TEMP 97.1; O2SAT 99
[2023-11-05 05:07] VITALS: BP 114/72; TEMP 98.1; O2SAT 99
[2023-11-05 06:14] LABS: BASO % 0.6 % (0.0-1.0); EOS # 0.1 10^3/uL (0.0-0.5); EOS % 2.9 % (0.0-3.0); HEMATOCRIT 28.7 % (42.0-52.0); LYMPH # 0.5 10^3/uL (1.5-5.0); LYMPH % 13.5 % (24.0-44.0); MEAN CORPUSCULAR HEMOGLOBIN 31.3 pg (27.0-33.0); MEAN CORPUSCULAR HGB CONC 31.4 g/dl (32.0-36.5); MEAN CORPUSCULAR VOLUME 99.7 fl (80.0-96.0); MONO # 0.5 10^3/uL (0.0-0.8); MONO % 15.3 % (2.0-8.0); NEUTROPHILS # 2.3 10^3/uL (1.5-8.5); NEUTROPHILS % 67.4 % (36.0-66.0); PLATELET COUNT, AUTOMATED 144 10^3/uL (150-450); RED BLOOD COUNT 2.88 10^6/uL (4.30-6.10); WHITE BLOOD COUNT 3.4 10^3/uL (4.0-10.0)
[2023-11-05 06:35] LABS: CALCIUM LEVEL 8.2 MG/DL (8.3-10.6); CREATININE FOR GFR 2.69 MG/DL (0.70-1.30); GLOMERULAR FILTRATION RATE 25.1 (>42); MAGNESIUM LEVEL 1.8 MG/DL (1.8-2.4); POTASSIUM SERUM 4.2 MMOL/L (3.5-5.1)
[2023-11-05 07:50] VITALS: BP 111/53; TEMP 98.7; O2SAT 97
[2023-11-05] MEDS: FINASTERIDE 5MG TAB PO SCH (08:08)
[2023-11-05] MEDS: ASPIRIN 81MG ENTERIC TABLET PO SCH (08:09)
[2023-11-05] MEDS: TORSEMIDE 20 MG TAB PO SCH (08:09)
[2023-11-05] MEDS: TAMSULOSIN 0.4 MG CAP PO SCH (08:09)
[2023-11-05] MEDS: ACETAMINOPHEN 500 MG TAB PO PRN (08:09)
[2023-11-05] MEDS: allopurinoL 100 MG TAB PO SCH (08:09)
[2023-11-05] MEDS ORDERED: XARE15TA PO ×2 (08:50→09:29)
[2023-11-05] MEDS ORDERED: RIVAROXABAN 15MG TAB (XARELTO) PO SCH (18:00)
[2023-11-06] MEDS ORDERED: METO1TAB32 (09:06)
[2023-11-06] MEDS ORDERED: ELIQ2.5T PO (10:52)
== END 2023-11-05 13:59 | disposition home or self-care (01) ==
LOC: M PCU 14:34
PROVIDERS: ADMIT Internal Medicine; ATTEND Internal Medicine
DX: R22.41 Localized swelling, mass and lump, right lower limb (principal); R60.0 Localized edema; I87.2 Venous insufficiency (chronic) (peripheral); I48.91 Unspecified atrial fibrillation; I50.32 Chronic diastolic (congestive) heart failure; I25.10 Atherosclerotic heart disease of native coronary artery without angina pectoris; G47.33 Obstructive sleep apnea (adult) (pediatric); J45.909 Unspecified asthma, uncomplicated; N18.4 Chronic kidney disease, stage 4 (severe); M10.9 Gout, unspecified; G89.4 Chronic pain syndrome; K59.00 Constipation, unspecified; N40.0 Benign prostatic hyperplasia without lower urinary tract symptoms; K21.9 Gastro-esophageal reflux disease without esophagitis; D64.9 Anemia, unspecified; Z79.82 Long term (current) use of aspirin; Z79.899 Other long term (current) drug therapy; Z79.02 Long term (current) use of antithrombotics/antiplatelets; Z88.8 Allergy status to other drugs, medicaments and biological substances
CPT/HCPCS: 36415; 80048; 80053; 83735; 85025; 96372; G0378; G0379; J1650

== ENCOUNTER → 2023-11-04 | Outpatient (CLI) | payer MEDICARE, MEDICAID ==
[~2023-11-04] MED LIST changes: +ASPI81TAEC PO; -LIDOCAINE 2% 100MG/5ML SDV (FOR ANES.) As Ordered ONE; +LOVE0.8I SC; +METO1TAB32; -MIDAZOLAM INJ 2MG/2ML VIAL As Ordered ONE; -ONDANSETRON 4MG 2ML VIAL As Ordered ONE; +VENTAER INH; +XARE15TA PO; -fentaNYL 100 MCG/2 ML INJECTION As Ordered ONE; -propofoL 200 MG/20 ML VIAL As Ordered ONE
== END ==
LOC: M RAD 10:36
PROVIDERS: ATTEND Plastic Surgery Surgery of the Hand
DX: I82.411 Acute embolism and thrombosis of right femoral vein (principal); I82.431 Acute embolism and thrombosis of right popliteal vein; S81.801A Unspecified open wound, right lower leg, initial encounter; Z48.817 Encounter for surgical aftercare following surgery on the skin and subcutaneous tissue; Y93.9 Activity, unspecified; Y92.9 Unspecified place or not applicable

== ENCOUNTER → 2023-11-04 | Outpatient (CLI) | payer MEDICARE, MEDICAID ==
[~2023-11-04] MED LIST changes: +ALBUTEROL SULFATE 2.5MG/0.5ML INH NEB SOLN INH PRN; +EPINEPHrine INJ 1 MG/ML 1ML AMP IM PRN; +IRON SUCROSE 300 MG in NS 250 ML OVER 90 MIN. IV ONE; +NS 1,000 ML IV SCH; +diphenhydrAMINE 50MG/ML VIAL IV PRN; +methylPREDNISolone 125MG 2ML VIAL IV PRN
== END ==
LOC: M INFU 10:40
PROVIDERS: ATTEND Internal Medicine Nephrology
DX: E61.1 Iron deficiency (principal); Z88.8 Allergy status to other drugs, medicaments and biological substances; Z53.9 Procedure and treatment not carried out, unspecified reason

== ENCOUNTER → 2023-11-24 | Outpatient (CLI) | payer MEDICARE, MEDICAID ==
[~2023-11-24] MED LIST changes: +LOVE0.8I SC; +METO1TAB32; +XARE15TA PO
== END ==
LOC: M RAD 10:42
PROVIDERS: ATTEND Plastic Surgery Surgery of the Hand
DX: S81.801A Unspecified open wound, right lower leg, initial encounter (principal); Z48.817 Encounter for surgical aftercare following surgery on the skin and subcutaneous tissue; I82.531 Chronic embolism and thrombosis of right popliteal vein; X58.XXXA Exposure to other specified factors, initial encounter; Y92.9 Unspecified place or not applicable; Y93.9 Activity, unspecified; Y99.9 Unspecified external cause status

== ENCOUNTER → 2023-11-24 | Outpatient (CLI) | payer MEDICARE, MEDICAID ==
[2023-11-24 12:03] LABS: HEMATOCRIT 30.3 % (42.0-52.0); HEMOGLOBIN 9.4 g/dl (13.5-17.5); MEAN CORPUSCULAR VOLUME 103.1 fl (80.0-96.0); PLATELET COUNT, AUTOMATED 143 10^3/uL (150-450); RED BLOOD COUNT 2.94 10^6/uL (4.30-6.10); WHITE BLOOD COUNT 3.3 10^3/uL (4.0-10.0)
[2023-11-24 12:44] LABS: CALCIUM LEVEL 8.8 MG/DL (8.3-10.6); CREATININE FOR GFR 2.81 MG/DL (0.70-1.30); GLOMERULAR FILTRATION RATE 23.9 (>42)
== END ==
LOC: M RAD 11:00
PROVIDERS: ATTEND Physician Assistant
DX: S81.801D Unspecified open wound, right lower leg, subsequent encounter (principal); I82.401 Acute embolism and thrombosis of unspecified deep veins of right lower extremity; I51.7 Cardiomegaly

== ENCOUNTER 2023-12-01 15:02 | Inpatient (IN) | payer MEDICARE, MEDICAID ==
[~2023-12-01] VITALS: Ht 177.8 cm; Wt 110.4 kg
[~2023-12-01 15:02] MED LIST changes: +ASPI-226 PO; +LIDOCAINE 2% 100MG/5ML SDV (FOR ANES.) As Ordered ONE; -METO1TAB32; +ONDANSETRON 4MG 2ML VIAL As Ordered ONE; +propofoL 200 MG/20 ML VIAL As Ordered ONE
[2023-12-01] MEDS ORDERED: LR 1,000 ML IV SCH (15:10)
[2023-12-01] MEDS ORDERED: fentaNYL 100 MCG/2 ML INJECTION As Ordered ONE (15:33)
[2023-12-01] MEDS ORDERED: ENOX80IN3 SC (16:26)
[2023-12-01] MEDS ORDERED: ASPI81TA26 PO (16:26)
[2023-12-01] MEDS ORDERED: XARE15TA PO (16:26)
[2023-12-01] MEDS ORDERED: HOME MED LIST COMPLETE! XX SCH (16:30)
[2023-12-01 17:12] LABS: CALCIUM LEVEL 8.6 MG/DL (8.3-10.6); CREATININE FOR GFR 2.98 MG/DL (0.70-1.30); GLOMERULAR FILTRATION RATE 22.3 (>42); POTASSIUM SERUM 4.9 MMOL/L (3.5-5.1)
[2023-12-01] MEDS: EPINEPHrine 1MG/ML INJ 30ML MD-VIAL As Ordered ONE (17:12)
[2023-12-01] MEDS: ceFAZolin 2 GM/D5W 50 ML IV BAG As Ordered ONE (17:26)
[2023-12-01] MEDS: ceFAZolin SOD 2 GM in IV 1 EA IV ONE (17:50)
[2023-12-01] MEDS: GENTAMICIN SULF 80MG/2ML VIAL As Ordered ONE (18:20)
[2023-12-01] MEDS: EPINEPHrine INJ 1 MG/ML 1ML AMP As Ordered ONE (18:21)
[2023-12-01] MEDS: ENOXAPARIN 30MG/0.3ML SYRINGE (J1650 PER 10MG) SC STA (18:36)
[2023-12-01] MEDS ORDERED: fentaNYL 100 MCG/2 ML INJECTION IV PRN (18:45)
[2023-12-01] MEDS ORDERED: ONDANSETRON 4MG 2ML VIAL IV PRN ×2 (18:45→19:40)
[2023-12-01] MEDS: oxyCODONE 5MG TAB PO PRN (19:30)
[2023-12-01] MEDS ORDERED: MOM 30ML SUSPENSION UDC PO PRN (19:35)
[2023-12-01] MEDS ORDERED: oxyCODONE 5MG TAB PO PRN (19:40)
[2023-12-01 20:15] VITALS: BP 100/58; TEMP 97.3; O2SAT 99
[2023-12-01 20:46] VITALS: BP 100/65; TEMP 97.5; O2SAT 100
[2023-12-01] MEDS: GABAPENTIN 300 MG CAP PO SCH (20:59)
[2023-12-01 21:44] VITALS: BP 101/64; TEMP 97.5; O2SAT 100
[2023-12-01 22:44] VITALS: BP 100/63; TEMP 97.6; O2SAT 98
[2023-12-01 23:44] VITALS: BP 98/60; TEMP 97.5; O2SAT 94
[2023-12-02] MEDS: ceFAZolin SOD 2 GM in IV 1 EA IV SCH (02:46)
[2023-12-02 04:36] VITALS: BP 102/60; TEMP 97.6; O2SAT 95
[2023-12-02 06:01] LABS: HEMATOCRIT 27.9 % (42.0-52.0); HEMOGLOBIN 8.7 g/dl (13.5-17.5); MEAN CORPUSCULAR HEMOGLOBIN 32.3 pg (27.0-33.0); MEAN CORPUSCULAR HGB CONC 31.2 g/dl (32.0-36.5); MEAN CORPUSCULAR VOLUME 103.7 fl (80.0-96.0); PLATELET COUNT, AUTOMATED 124 10^3/uL (150-450); RED BLOOD COUNT 2.69 10^6/uL (4.30-6.10); WHITE BLOOD COUNT 3.2 10^3/uL (4.0-10.0)
[2023-12-02 06:27] LABS: ALBUMIN 2.7 G/DL (3.2-5.2); ALKALINE PHOSPHATASE 101 U/L (46-116); ALT/SGPT < 9 U/L (7.0-40); AST/SGOT 11 U/L (<34); BILIRUBIN,TOTAL 0.6 MG/DL (0.3-1.2); BLOOD UREA NITROGEN 72 MG/DL (9-23); CALCIUM LEVEL 8.4 MG/DL (8.3-10.6); CARBON DIOXIDE LEVEL 23 MMOL/L (20-31); CHLORIDE LEVEL 108 MMOL/L (98-107); CREATININE FOR GFR 2.75 MG/DL (0.70-1.30); GLOMERULAR FILTRATION RATE 24.5 (>42); GLUCOSE, FASTING 121 MG/DL (74-106); POTASSIUM SERUM 5.4 MMOL/L (3.5-5.1); SODIUM LEVEL 138 MMOL/L (136-145); TOTAL PROTEIN 5.9 G/DL (5.7-8.2)
[2023-12-02] MEDS: DEXTROSE 50% 50ML SYRINGE IV STA (07:32)
[2023-12-02] MEDS: HumuLIN R (REGULAR) INSULIN (NovoLIN R) **100U/ML** PER UNIT IV STA (07:33)
[2023-12-02 08:21] VITALS: BP 100/62; TEMP 97.7; O2SAT 97
[2023-12-02] MEDS: ASPIRIN 81MG ENTERIC TABLET PO SCH (08:46)
[2023-12-02] MEDS: TAMSULOSIN 0.4 MG CAP PO SCH (08:46)
[2023-12-02] MEDS: TORSEMIDE 20 MG TAB PO SCH (08:46)
[2023-12-02] MEDS: FINASTERIDE 5MG TAB PO SCH (08:47)
[2023-12-02] MEDS: RIVAROXABAN 15MG TAB (XARELTO) PO SCH (08:47)
[2023-12-02] MEDS: allopurinoL 100 MG TAB PO SCH (08:47)
[2023-12-02] MEDS: FLUTICASONE PROP 0.05% NASAL SPRAY 16 GM (FLONASE) NARES SCH (08:48)
[2023-12-02] MEDS: METOPROLOL SUCC *XL* 12.5MG PER 1/2 TAB (TopROL *XL*) PO SCH (08:49)
[2023-12-02] MEDS: PANTOPRAZOLE 40MG VIAL IV SCH (08:49)
[2023-12-02] MEDS ORDERED: METOPROLOL SUCC *XL* 25MG TAB (TopROL *XL*) PO SCH (09:00)
[2023-12-02 12:32] VITALS: BP 103/53; TEMP 97.9; O2SAT 97
[2023-12-02] MEDS ORDERED: MIRALAX *UNIT DOSE* 17GM PACKET PO PRN (17:10)
[2023-12-02] MEDS ORDERED: PILL CUTTER 1 EACH XX PRN (17:20)
[2023-12-02 19:58] VITALS: BP 101/53; TEMP 98.1; O2SAT 98
[2023-12-02] MEDS: FAMOTIDINE 20 MG TAB PO SCH (20:00)
[2023-12-02 20:50] VITALS: BP 98/53; TEMP 97.5; O2SAT 96
[2023-12-02] MEDS: PATIROMER SORBITEX CALCIUM 8.4 GM POWDER PACKET (VELTASSA) PO ONE (23:16)
[2023-12-03 04:46] VITALS: BP 97/56; TEMP 97.3; O2SAT 96
[2023-12-03 06:06] LABS: HEMATOCRIT 26.3 % (42.0-52.0); HEMOGLOBIN 8.1 g/dl (13.5-17.5); MEAN CORPUSCULAR HEMOGLOBIN 32.9 pg (27.0-33.0); MEAN CORPUSCULAR HGB CONC 30.8 g/dl (32.0-36.5); MEAN CORPUSCULAR VOLUME 106.9 fl (80.0-96.0); PLATELET COUNT, AUTOMATED 116 10^3/uL (150-450); RED BLOOD COUNT 2.46 10^6/uL (4.30-6.10); WHITE BLOOD COUNT 4.3 10^3/uL (4.0-10.0)
[2023-12-03 06:36] LABS: ALBUMIN 2.7 G/DL (3.2-5.2); ALKALINE PHOSPHATASE 106 U/L (46-116); ALT/SGPT < 9 U/L (7.0-40); AST/SGOT 17 U/L (<34); BILIRUBIN,TOTAL 0.2 MG/DL (0.3-1.2); BLOOD UREA NITROGEN 70 MG/DL (9-23); CALCIUM LEVEL 8.2 MG/DL (8.3-10.6); CARBON DIOXIDE LEVEL 23 MMOL/L (20-31); CHLORIDE LEVEL 110 MMOL/L (98-107); CREATININE FOR GFR 2.75 MG/DL (0.70-1.30); GLOMERULAR FILTRATION RATE 24.5 (>42); GLUCOSE, FASTING 117 MG/DL (74-106); POTASSIUM SERUM 5.3 MMOL/L (3.5-5.1); SODIUM LEVEL 141 MMOL/L (136-145); TOTAL PROTEIN 5.9 G/DL (5.7-8.2)
[2023-12-03] MEDS: NS 1,000 ML IV ONE (11:05)
[2023-12-03 12:00] VITALS: BP 116/73; TEMP 97.9; O2SAT 98
[2023-12-03] MEDS: metOLazone 2.5 MG TAB PO ONE (12:31)
[2023-12-03] MEDS: PATIROMER SORBITEX CALCIUM 8.4 GM POWDER PACKET (VELTASSA) PO SCH (12:31)
[2023-12-03] MEDS ORDERED: PILL CUTTER 1 EACH XX PRN (20:00)
[2023-12-03 20:18] VITALS: BP 111/66; TEMP 97.3; O2SAT 97
[2023-12-04 05:20] VITALS: BP 109/68; TEMP 97.7; O2SAT 96
[2023-12-04 07:16] LABS: MEAN CORPUSCULAR HEMOGLOBIN 33.1 pg (27.0-33.0); MEAN CORPUSCULAR VOLUME 106.6 fl (80.0-96.0); PLATELET COUNT, AUTOMATED 119 10^3/uL (150-450); RED BLOOD COUNT 2.72 10^6/uL (4.30-6.10); WHITE BLOOD COUNT 4.1 10^3/uL (4.0-10.0)
[2023-12-04 07:40] LABS: IRON (FE) 52 UG/DL (65-175); PERCENT SATURATION 20.9 % (19.7-50.0); TOTAL IRON BINDING CAPACITY 249 UG/DL (250-425)
[2023-12-04 07:46] LABS: ALBUMIN 2.6 G/DL (3.2-5.2); ALKALINE PHOSPHATASE 90 U/L (46-116); ALT/SGPT < 9 U/L (7.0-40); AST/SGOT 10 U/L (<34); BILIRUBIN,TOTAL 0.3 MG/DL (0.3-1.2); BLOOD UREA NITROGEN 63 MG/DL (9-23); CALCIUM LEVEL 8.6 MG/DL (8.3-10.6); CARBON DIOXIDE LEVEL 25 MMOL/L (20-31); CHLORIDE LEVEL 109 MMOL/L (98-107); CREATININE FOR GFR 2.67 MG/DL (0.70-1.30); FERRITIN 421.2 NG/ML (10.5-307.3); FOLATE 4.88 NG/ML (>5.4); GLOMERULAR FILTRATION RATE 25.3 (>42); GLUCOSE, FASTING 99 MG/DL (74-106); POTASSIUM SERUM 4.5 MMOL/L (3.5-5.1); SODIUM LEVEL 138 MMOL/L (136-145); TOTAL PROTEIN 5.8 G/DL (5.7-8.2); VITAMIN B12 LEVEL 266 PG/ML (211-911)
[2023-12-04 13:20] VITALS: BP 108/68; TEMP 97.5; O2SAT 99
[2023-12-04 17:46] VITALS: BP 109/72; TEMP 97.6; O2SAT 97
[2023-12-04 21:10] VITALS: BP 111/70; TEMP 98.4
[2023-12-05 05:05] VITALS: BP 114/71; TEMP 97.7; O2SAT 96
[2023-12-05] MEDS: ACETAMINOPHEN TAB 650MG DOSE (2X325MG) PO PRN (07:04)
[2023-12-05 07:10] LABS: HEMATOCRIT 30.2 % (42.0-52.0); HEMOGLOBIN 9.4 g/dl (13.5-17.5); MEAN CORPUSCULAR HEMOGLOBIN 33.2 pg (27.0-33.0); MEAN CORPUSCULAR HGB CONC 31.1 g/dl (32.0-36.5); MEAN CORPUSCULAR VOLUME 106.7 fl (80.0-96.0); PLATELET COUNT, AUTOMATED 142 10^3/uL (150-450); RED BLOOD COUNT 2.83 10^6/uL (4.30-6.10); WHITE BLOOD COUNT 4.6 10^3/uL (4.0-10.0)
[2023-12-05 07:35] LABS: ALBUMIN 2.5 G/DL (3.2-5.2); ALKALINE PHOSPHATASE 107 U/L (46-116); ALT/SGPT < 9 U/L (7.0-40); AST/SGOT 10 U/L (<34); BILIRUBIN,TOTAL 0.4 MG/DL (0.3-1.2); BLOOD UREA NITROGEN 62 MG/DL (9-23); CALCIUM LEVEL 8.5 MG/DL (8.3-10.6); CARBON DIOXIDE LEVEL 26 MMOL/L (20-31); CHLORIDE LEVEL 109 MMOL/L (98-107); CREATININE FOR GFR 2.58 MG/DL (0.70-1.30); GLOMERULAR FILTRATION RATE 26.3 (>42); GLUCOSE, FASTING 100 MG/DL (74-106); POTASSIUM SERUM 4.9 MMOL/L (3.5-5.1); SODIUM LEVEL 140 MMOL/L (136-145); TOTAL PROTEIN 5.8 G/DL (5.7-8.2)
[2023-12-05] MEDS: DOCUSATE SODIUM 100MG CAPSULE PO SCH (08:46)
[2023-12-05 12:35] VITALS: BP 100/56; TEMP 97.9; O2SAT 100
[2023-12-05 20:06] VITALS: BP 101/54; TEMP 97.5; O2SAT 99
[2023-12-05] MEDS: SENNA 8.6 MG TAB (SENOKOT) PO SCH (20:52)
[2023-12-06 04:02] VITALS: BP 100/57; TEMP 97.5; O2SAT 95
[2023-12-06 06:57] LABS: HEMOGLOBIN 8.8 g/dl (13.5-17.5); MEAN CORPUSCULAR HEMOGLOBIN 32.4 pg (27.0-33.0); MEAN CORPUSCULAR HGB CONC 30.3 g/dl (32.0-36.5); MEAN CORPUSCULAR VOLUME 106.6 fl (80.0-96.0); PLATELET COUNT, AUTOMATED 126 10^3/uL (150-450); RED BLOOD COUNT 2.72 10^6/uL (4.30-6.10); WHITE BLOOD COUNT 3.7 10^3/uL (4.0-10.0)
[2023-12-06 07:22] LABS: ALBUMIN 2.4 G/DL (3.2-5.2); ALKALINE PHOSPHATASE 106 U/L (46-116); ALT/SGPT < 9 U/L (7.0-40); AST/SGOT 9 U/L (<34); BILIRUBIN,TOTAL 0.3 MG/DL (0.3-1.2); BLOOD UREA NITROGEN 62 MG/DL (9-23); CALCIUM LEVEL 8.1 MG/DL (8.3-10.6); CARBON DIOXIDE LEVEL 26 MMOL/L (20-31); CHLORIDE LEVEL 108 MMOL/L (98-107); CREATININE FOR GFR 2.62 MG/DL (0.70-1.30); GLOMERULAR FILTRATION RATE 25.9 (>42); GLUCOSE, FASTING 92 MG/DL (74-106); POTASSIUM SERUM 4.5 MMOL/L (3.5-5.1); SODIUM LEVEL 139 MMOL/L (136-145); TOTAL PROTEIN 5.4 G/DL (5.7-8.2)
[2023-12-06 12:00] VITALS: BP 105/63; TEMP 97.7; O2SAT 99
[2023-12-06 19:46] VITALS: BP 102/61; TEMP 97.9; O2SAT 99
[2023-12-07 04:00] VITALS: BP 102/61; TEMP 97.7; O2SAT 98
[2023-12-07 06:01] LABS: HEMATOCRIT 29.4 % (42.0-52.0); HEMOGLOBIN 9.1 g/dl (13.5-17.5); MEAN CORPUSCULAR HEMOGLOBIN 33.2 pg (27.0-33.0); MEAN CORPUSCULAR VOLUME 107.3 fl (80.0-96.0); PLATELET COUNT, AUTOMATED 142 10^3/uL (150-450); RED BLOOD COUNT 2.74 10^6/uL (4.30-6.10); WHITE BLOOD COUNT 4.6 10^3/uL (4.0-10.0)
[2023-12-07 06:38] LABS: ALBUMIN 2.5 G/DL (3.2-5.2); ALKALINE PHOSPHATASE 111 U/L (46-116); ALT/SGPT < 9 U/L (7.0-40); AST/SGOT 9 U/L (<34); BILIRUBIN,TOTAL 0.3 MG/DL (0.3-1.2); BLOOD UREA NITROGEN 58 MG/DL (9-23); CALCIUM LEVEL 8.5 MG/DL (8.3-10.6); CARBON DIOXIDE LEVEL 27 MMOL/L (20-31); CHLORIDE LEVEL 109 MMOL/L (98-107); CREATININE FOR GFR 2.56 MG/DL (0.70-1.30); GLOMERULAR FILTRATION RATE 26.6 (>42); GLUCOSE, FASTING 95 MG/DL (74-106); POTASSIUM SERUM 4.9 MMOL/L (3.5-5.1); SODIUM LEVEL 142 MMOL/L (136-145); TOTAL PROTEIN 5.7 G/DL (5.7-8.2)
[2023-12-07 12:00] VITALS: BP 101/57; TEMP 97.3; O2SAT 100
[2023-12-07] MEDS: TORSEMIDE 10 MG TABLET PO SCH (16:43)
[2023-12-07 19:35] VITALS: BP 102/58; TEMP 98.4; O2SAT 99
[2023-12-07] MEDS ORDERED: CEFDINIR 300 MG CAP (OMNICEF) PO SCH (21:00)
[2023-12-08 03:52] VITALS: BP 93/51; TEMP 97.9; O2SAT 98
[2023-12-08 06:08] LABS: HEMATOCRIT 27.6 % (42.0-52.0); HEMOGLOBIN 8.6 g/dl (13.5-17.5); MEAN CORPUSCULAR HEMOGLOBIN 33.1 pg (27.0-33.0); MEAN CORPUSCULAR HGB CONC 31.2 g/dl (32.0-36.5); MEAN CORPUSCULAR VOLUME 106.2 fl (80.0-96.0); PLATELET COUNT, AUTOMATED 136 10^3/uL (150-450); WHITE BLOOD COUNT 4.5 10^3/uL (4.0-10.0)
[2023-12-08 06:32] LABS: ALBUMIN 2.4 G/DL (3.2-5.2); ALKALINE PHOSPHATASE 112 U/L (46-116); ALT/SGPT < 9 U/L (7.0-40); AST/SGOT 15 U/L (<34); BILIRUBIN,TOTAL 0.3 MG/DL (0.3-1.2); BLOOD UREA NITROGEN 66 MG/DL (9-23); CALCIUM LEVEL 8.1 MG/DL (8.3-10.6); CARBON DIOXIDE LEVEL 27 MMOL/L (20-31); CHLORIDE LEVEL 109 MMOL/L (98-107); CREATININE FOR GFR 2.56 MG/DL (0.70-1.30); GLOMERULAR FILTRATION RATE 26.6 (>42); GLUCOSE, FASTING 95 MG/DL (74-106); POTASSIUM SERUM 5.4 MMOL/L (3.5-5.1); SODIUM LEVEL 141 MMOL/L (136-145); TOTAL PROTEIN 5.4 G/DL (5.7-8.2)
[2023-12-08 09:00] VITALS: BP 95/52
[2023-12-08] MEDS: PATIROMER SORBITEX CALCIUM 8.4 GM POWDER PACKET (VELTASSA) PO SCH (11:46)
[2023-12-08 12:00] VITALS: BP 93/52; TEMP 97.9; O2SAT 99
[2023-12-08 16:53] VITALS: BP 97/53
[2023-12-08] MEDS: MIDODRINE 5 MG TAB PO SCH (19:13)
[2023-12-08 20:00] VITALS: BP 85/50; TEMP 97.9; O2SAT 98
[2023-12-08] MEDS: ACETAMINOPHEN 500 MG TAB PO PRN (20:09)
[2023-12-08] MEDS: CEFDINIR 300 MG CAP (OMNICEF) PO SCH (20:09)
[2023-12-09 04:00] VITALS: BP 108/67; TEMP 97.7; O2SAT 98
[2023-12-09 06:50] LABS: BASO % 0.5 % (0.0-1.0); EOS # 0.2 10^3/uL (0.0-0.5); HEMATOCRIT 27.5 % (42.0-52.0); HEMOGLOBIN 8.5 g/dl (13.5-17.5); LYMPH # 0.5 10^3/uL (1.5-5.0); LYMPH % 12.1 % (24.0-44.0); MEAN CORPUSCULAR HEMOGLOBIN 33.2 pg (27.0-33.0); MEAN CORPUSCULAR HGB CONC 30.9 g/dl (32.0-36.5); MEAN CORPUSCULAR VOLUME 107.4 fl (80.0-96.0); MONO # 0.8 10^3/uL (0.0-0.8); MONO % 17.2 % (2.0-8.0); NEUTROPHILS # 2.8 10^3/uL (1.5-8.5); NEUTROPHILS % 64.7 % (36.0-66.0); PLATELET COUNT, AUTOMATED 124 10^3/uL (150-450); RED BLOOD COUNT 2.56 10^6/uL (4.30-6.10); WHITE BLOOD COUNT 4.4 10^3/uL (4.0-10.0)
[2023-12-09 07:18] LABS: CALCIUM LEVEL 8.4 MG/DL (8.3-10.6); CREATININE FOR GFR 2.73 MG/DL (0.70-1.30); GLOMERULAR FILTRATION RATE 24.7 (>42); POTASSIUM SERUM 5.3 MMOL/L (3.5-5.1)
[2023-12-09 09:12] VITALS: BP 107/67
[2023-12-09] MEDS ORDERED: CEFD300CAP PO (09:55)
[2023-12-09] MEDS ORDERED: MIDO5TA PO (09:55)
[2023-12-09] MEDS ORDERED: VELT1POW PO (09:55)
[2023-12-09] MEDS ORDERED: ADULKIT XX (10:17)
== END 2023-12-09 13:15 | disposition home health service (06) | DRG 264 ==
LOC: M SDC 15:02 → M RR INP 19:35 → M MS5PR 20:05
PROVIDERS: ADMIT Preventive Medicine Undersea and Hyperbaric Medicine; ATTEND Internal Medicine
PROC: 0HBHXZZ Excision of Right Upper Leg Skin, External Approach (ICD-10-PCS; 2023-12-01)
PROC: 0HRKX73 Replacement of Right Lower Leg Skin with Autologous Tissue Substitute, Full Thickness, External Approach (ICD-10-PCS; principal; 2023-12-01 16:30)
DX: I87.2 Venous insufficiency (chronic) (peripheral) (principal); N18.4 Chronic kidney disease, stage 4 (severe); I50.22 Chronic systolic (congestive) heart failure; L97.911 Non-pressure chronic ulcer of unspecified part of right lower leg limited to breakdown of skin; I13.0 Hypertensive heart and chronic kidney disease with heart failure and stage 1 through stage 4 chronic kidney disease, or unspecified chronic kidney disease; J45.909 Unspecified asthma, uncomplicated; D64.9 Anemia, unspecified; I48.91 Unspecified atrial fibrillation; I95.9 Hypotension, unspecified; E87.5 Hyperkalemia; K21.9 Gastro-esophageal reflux disease without esophagitis; I89.0 Lymphedema, not elsewhere classified; G89.29 Other chronic pain; I27.20 Pulmonary hypertension, unspecified; M10.9 Gout, unspecified; I25.10 Atherosclerotic heart disease of native coronary artery without angina pectoris; Z98.1 Arthrodesis status; I34.0 Nonrheumatic mitral (valve) insufficiency; N40.0 Benign prostatic hyperplasia without lower urinary tract symptoms; Z79.01 Long term (current) use of anticoagulants; Z79.82 Long term (current) use of aspirin; Z79.899 Other long term (current) drug therapy; Z88.8 Allergy status to other drugs, medicaments and biological substances; M79.81 Nontraumatic hematoma of soft tissue; B96.20 Unspecified Escherichia coli [E. coli] as the cause of diseases classified elsewhere; Z86.718 Personal history of other venous thrombosis and embolism; M19.90 Unspecified osteoarthritis, unspecified site; G47.33 Obstructive sleep apnea (adult) (pediatric); Z96.643 Presence of artificial hip joint, bilateral; Z96.653 Presence of artificial knee joint, bilateral

== ENCOUNTER 2024-01-30 08:18 | Inpatient (IN) | payer MEDICARE, MEDICAID ==
[~2024-01-30] VITALS: Ht 177.8 cm; Wt 110.2 kg
[~2024-01-30 08:18] MED LIST changes: +ADULKIT XX; +ASPI81TA26 PO; +CEFD300CAP PO; +ENOX80IN3 SC; -LIDOCAINE 2% 100MG/5ML SDV (FOR ANES.) As Ordered ONE; -ONDANSETRON 4MG 2ML VIAL As Ordered ONE; +VELT1POW PO; -propofoL 200 MG/20 ML VIAL As Ordered ONE
[2024-01-30 11:36] LABS: BASO % 0.2 % (0.0-1.0); EOS % 0.2 % (0.0-3.0); HEMATOCRIT 32.5 % (42.0-52.0); HEMOGLOBIN 9.9 g/dl (13.5-17.5); LYMPH # 0.4 10^3/uL (1.5-5.0); LYMPH % 2.5 % (24.0-44.0); MEAN CORPUSCULAR HEMOGLOBIN 32.1 pg (27.0-33.0); MEAN CORPUSCULAR HGB CONC 30.5 g/dl (32.0-36.5); MEAN CORPUSCULAR VOLUME 105.5 fl (80.0-96.0); MONO # 0.7 10^3/uL (0.0-0.8); NEUTROPHILS # 15.8 10^3/uL (1.5-8.5); NEUTROPHILS % 92.3 % (36.0-66.0); PLATELET COUNT, AUTOMATED 234 10^3/uL (150-450); RED BLOOD COUNT 3.08 10^6/uL (4.30-6.10); WHITE BLOOD COUNT 17.1 10^3/uL (4.0-10.0)
[2024-01-30 11:53] LABS: INR 1.33; PARTIAL THROMBOPLASTIN TIME 32.5 SECONDS (24.8-34.2); PROTHROMBIN TIME 16.1 SECONDS (12.5-14.5)
[2024-01-30 12:01] LABS: LIPASE 22 U/L (12-53)
[2024-01-30 12:03] LABS: ALBUMIN 2.5 G/DL (3.2-5.2); ALKALINE PHOSPHATASE 123 U/L (46-116); ALT/SGPT < 9 U/L (7.0-40); AMYLASE 42 U/L (30-118); AST/SGOT 16 U/L (<34); BILIRUBIN,DIRECT 1.1 MG/DL (<0.4); BILIRUBIN,TOTAL 1.7 MG/DL (0.3-1.2); BLOOD UREA NITROGEN 53 MG/DL (9-23); CALCIUM LEVEL 8.7 MG/DL (8.3-10.6); CARBON DIOXIDE LEVEL 29 MMOL/L (20-31); CHLORIDE LEVEL 104 MMOL/L (98-107); GLUCOSE, FASTING 111 MG/DL (74-106); POTASSIUM SERUM 4.5 MMOL/L (3.5-5.1); SODIUM LEVEL 137 MMOL/L (136-145); TOTAL PROTEIN 6.8 G/DL (5.7-8.2)
[2024-01-30] MEDS: FUROSEMIDE 40MG/4ML VIAL IV ONE (13:56)
[2024-01-30] MEDS ORDERED: VELT1POW PO (14:11)
[2024-01-30] MEDS ORDERED: MIDO5TA PO (14:11)
[2024-01-30] MEDS ORDERED: HOME MED LIST COMPLETE! XX SCH (14:15)
[2024-01-30] MEDS ORDERED: MIRALAX *UNIT DOSE* 17GM PACKET PO PRN (15:10)
[2024-01-30] MEDS ORDERED: PILL CUTTER 1 EACH XX PRN (15:35)
[2024-01-30] MEDS: MIDODRINE 5 MG TAB PO SCH (16:00)
[2024-01-30 17:00] VITALS: BP 147/90; TEMP 97.3; O2SAT 90
[2024-01-30 17:01] LABS: CK-MB VALUE MASS < 1.0 NG/ML (<3.6)
[2024-01-30 17:07] LABS: CPK CREATINE PHOSPHOKINASE 24 U/L (46-171); MB/CK RELATIVE INDEX 4.16 (< OR =4)
[2024-01-30 17:10] VITALS: O2SAT 86
[2024-01-30 17:13] VITALS: O2SAT 95
[2024-01-30] MEDS: METOPROLOL SUCC *XL* 25MG TAB (TopROL *XL*) PO SCH (17:13)
[2024-01-30 20:00] VITALS: BP 118/73; TEMP 97.9; O2SAT 97
[2024-01-30] MEDS: FAMOTIDINE 20 MG TAB PO SCH (20:53)
[2024-01-30] MEDS: VANICREAM MOISTURIZING SKIN CREAM 113GM TUBE TOP SCH (20:54)
[2024-01-30] MEDS: FUROSEMIDE 40MG/4ML VIAL IV SCH (20:54)
[2024-01-30] MEDS: NYSTATIN 100,000 UNITS/GM TOPICAL PWD 15GM TOP SCH (20:55)
[2024-01-31 03:00] VITALS: BP 115/74; TEMP 97.7; O2SAT 99
[2024-01-31 06:30] LABS: HEMATOCRIT 35.5 % (42.0-52.0); HEMOGLOBIN 10.8 g/dl (13.5-17.5); MEAN CORPUSCULAR HGB CONC 30.4 g/dl (32.0-36.5); PLATELET COUNT, AUTOMATED 249 10^3/uL (150-450); RED BLOOD COUNT 3.38 10^6/uL (4.30-6.10); WHITE BLOOD COUNT 16.4 10^3/uL (4.0-10.0)
[2024-01-31 06:49] LABS: ALBUMIN 2.6 G/DL (3.2-5.2); ALKALINE PHOSPHATASE 133 U/L (46-116); ALT/SGPT < 9 U/L (7.0-40); AST/SGOT 20 U/L (<34); BILIRUBIN,TOTAL 1.7 MG/DL (0.3-1.2); BLOOD UREA NITROGEN 56 MG/DL (9-23); CALCIUM LEVEL 9.1 MG/DL (8.3-10.6); CARBON DIOXIDE LEVEL 28 MMOL/L (20-31); CHLORIDE LEVEL 103 MMOL/L (98-107); CREATININE FOR GFR 2.71 MG/DL (0.70-1.30); GLOMERULAR FILTRATION RATE 24.9 (>42); GLUCOSE, FASTING 107 MG/DL (74-106); POTASSIUM SERUM 4.6 MMOL/L (3.5-5.1); SODIUM LEVEL 140 MMOL/L (136-145); TOTAL PROTEIN 7.2 G/DL (5.7-8.2)
[2024-01-31] MEDS: RIVAROXABAN 15MG TAB (XARELTO) PO SCH (08:01)
[2024-01-31] MEDS: allopurinoL 100 MG TAB PO SCH (08:01)
[2024-01-31] MEDS: TAMSULOSIN 0.4 MG CAP PO SCH (08:03)
[2024-01-31] MEDS: FINASTERIDE 5MG TAB PO SCH (08:03)
[2024-01-31] MEDS: GABAPENTIN 300 MG CAP PO SCH (08:03)
[2024-01-31] MEDS: ASPIRIN 81MG ENTERIC TABLET PO SCH (08:04)
[2024-01-31 12:00] VITALS: BP 112/77; TEMP 98.2; O2SAT 92
[2024-01-31] MEDS: PATIROMER SORBITEX CALCIUM 8.4 GM POWDER PACKET (VELTASSA) PO SCH (12:00)
[2024-01-31 17:24] VITALS: BP 87/66
[2024-01-31 20:07] VITALS: BP 88/64; TEMP 98.1; O2SAT 91
[2024-01-31 21:14] VITALS: BP 88/68
[2024-02-01] VITALS (7 sets, daily range): BP systolic 83–90; BP diastolic 53–64; TEMP 97–97.7; O2SAT 91–98
[2024-02-01 06:16] LABS: HEMATOCRIT 34.4 % (42.0-52.0); HEMOGLOBIN 10.5 g/dl (13.5-17.5); MEAN CORPUSCULAR HEMOGLOBIN 32.2 pg (27.0-33.0); MEAN CORPUSCULAR HGB CONC 30.5 g/dl (32.0-36.5); MEAN CORPUSCULAR VOLUME 105.5 fl (80.0-96.0); PLATELET COUNT, AUTOMATED 275 10^3/uL (150-450); RED BLOOD COUNT 3.26 10^6/uL (4.30-6.10)
[2024-02-01 06:45] LABS: ALBUMIN 2.6 G/DL (3.2-5.2); ALKALINE PHOSPHATASE 132 U/L (46-116); ALT/SGPT < 9 U/L (7.0-40); AST/SGOT 20 U/L (<34); BILIRUBIN,TOTAL 1.2 MG/DL (0.3-1.2); BLOOD UREA NITROGEN 66 MG/DL (9-23); CALCIUM LEVEL 8.8 MG/DL (8.3-10.6); CARBON DIOXIDE LEVEL 28 MMOL/L (20-31); CHLORIDE LEVEL 102 MMOL/L (98-107); CREATININE FOR GFR 2.94 MG/DL (0.70-1.30); GLOMERULAR FILTRATION RATE 22.7 (>42); GLUCOSE, FASTING 118 MG/DL (74-106); POTASSIUM SERUM 4.4 MMOL/L (3.5-5.1); SODIUM LEVEL 137 MMOL/L (136-145); TOTAL PROTEIN 6.9 G/DL (5.7-8.2)
[2024-02-01 07:14] LABS: PROCALCITONIN 1.07 ng/ml
[2024-02-01] MEDS: PANTOPRAZOLE 40MG TAB (PROTONIX) PO SCH (09:26)
[2024-02-01] MEDS: MIDODRINE 5 MG TAB PO SCH (11:45)
[2024-02-01] MEDS ORDERED: VANCOMYCIN HCL 750 MG, VIAL MATE ADAPTER 1 EACH in D5W 250 ML IV SCH (20:10)
[2024-02-01] MEDS: VANCOMYCIN HCL 1,000 MG, VIAL MATE ADAPTER 1 EACH in D5W 250 ML IV ONE (22:52)
[2024-02-02] VITALS (12 sets, daily range): BP systolic 89–110; BP diastolic 57–72; TEMP 96.8–98.7; O2SAT 94–100
[2024-02-02] MEDS: VANCOMYCIN HCL 1,000 MG, VIAL MATE ADAPTER 1 EACH in D5W 250 ML IV ONE (00:14)
[2024-02-02 06:08] LABS: HEMATOCRIT 32.9 % (42.0-52.0); HEMOGLOBIN 9.8 g/dl (13.5-17.5); MEAN CORPUSCULAR HEMOGLOBIN 31.6 pg (27.0-33.0); MEAN CORPUSCULAR HGB CONC 29.8 g/dl (32.0-36.5); MEAN CORPUSCULAR VOLUME 106.1 fl (80.0-96.0); PLATELET COUNT, AUTOMATED 217 10^3/uL (150-450); WHITE BLOOD COUNT 13.2 10^3/uL (4.0-10.0)
[2024-02-02 06:29] LABS: ALBUMIN 2.7 G/DL (3.2-5.2); ALKALINE PHOSPHATASE 124 U/L (46-116); ALT/SGPT < 9 U/L (7.0-40); AST/SGOT 18 U/L (<34); BILIRUBIN,TOTAL 0.8 MG/DL (0.3-1.2); BLOOD UREA NITROGEN 70 MG/DL (9-23); CALCIUM LEVEL 8.5 MG/DL (8.3-10.6); CARBON DIOXIDE LEVEL 29 MMOL/L (20-31); CHLORIDE LEVEL 103 MMOL/L (98-107); CREATININE FOR GFR 3.03 MG/DL (0.70-1.30); GLOMERULAR FILTRATION RATE 21.9 (>42); GLUCOSE, FASTING 104 MG/DL (74-106); POTASSIUM SERUM 4.3 MMOL/L (3.5-5.1); SODIUM LEVEL 140 MMOL/L (136-145); TOTAL PROTEIN 6.5 G/DL (5.7-8.2)
[2024-02-02 08:32] LABS: VANCOMYCIN RANDOM 19.3 UG/ML
[2024-02-02] MEDS ORDERED: VANCOMYCIN HCL 750 MG, VIAL MATE ADAPTER 1 EACH in D5W 250 ML IV SCH ×2 (10:00→11:00)
[2024-02-02] MEDS: VANCOMYCIN HCL 1,000 MG, VIAL MATE ADAPTER 1 EACH in D5W 250 ML IV SCH (10:49)
[2024-02-02] MEDS: ACETAMINOPHEN TAB 650MG DOSE (2X325MG) PO PRN (18:12)
[2024-02-03 04:13] VITALS: BP 100/62; TEMP 96.8; O2SAT 97
[2024-02-03 05:50] LABS: BASO % 0.2 % (0.0-1.0); EOS # 0.1 10^3/uL (0.0-0.5); EOS % 1.1 % (0.0-3.0); HEMATOCRIT 32.4 % (42.0-52.0); HEMOGLOBIN 9.7 g/dl (13.5-17.5); LYMPH # 0.5 10^3/uL (1.5-5.0); LYMPH % 4.4 % (24.0-44.0); MEAN CORPUSCULAR HEMOGLOBIN 31.7 pg (27.0-33.0); MEAN CORPUSCULAR HGB CONC 29.9 g/dl (32.0-36.5); MEAN CORPUSCULAR VOLUME 105.9 fl (80.0-96.0); MONO % 9.3 % (2.0-8.0); NEUTROPHILS # 9.2 10^3/uL (1.5-8.5); NEUTROPHILS % 83.8 % (36.0-66.0); PLATELET COUNT, AUTOMATED 217 10^3/uL (150-450); RED BLOOD COUNT 3.06 10^6/uL (4.30-6.10)
[2024-02-03 06:20] LABS: CALCIUM LEVEL 8.5 MG/DL (8.3-10.6); CREATININE FOR GFR 2.96 MG/DL (0.70-1.30); GLOMERULAR FILTRATION RATE 22.5 (>42); POTASSIUM SERUM 3.8 MMOL/L (3.5-5.1)
[2024-02-03 08:14] VITALS: BP 88/55
[2024-02-03] MEDS: FLUTICASONE PROP 0.05% NASAL SPRAY 16 GM (FLONASE) NARES PRN (10:34)
[2024-02-03] MEDS: VANCOMYCIN HCL 750 MG, VIAL MATE ADAPTER 1 EACH in D5W 250 ML IV SCH (11:01)
[2024-02-03 12:00] VITALS: BP 85/55; TEMP 97.5; O2SAT 99
[2024-02-03] MEDS: VANCOMYCIN HCL 500 MG in D5W MINI-BAG PLUS 100 ML IV SCH (12:17)
[2024-02-03 16:39] VITALS: BP 88/58
[2024-02-03 19:27] VITALS: BP 106/63; TEMP 97; O2SAT 95
[2024-02-04] VITALS (9 sets, daily range): BP systolic 97–110; BP diastolic 58–71; TEMP 97.5–97.7; O2SAT 95–97
[2024-02-04 06:21] LABS: BASO % 0.3 % (0.0-1.0); EOS # 0.2 10^3/uL (0.0-0.5); EOS % 1.2 % (0.0-3.0); HEMATOCRIT 31.6 % (42.0-52.0); HEMOGLOBIN 9.4 g/dl (13.5-17.5); LYMPH # 0.5 10^3/uL (1.5-5.0); MEAN CORPUSCULAR HGB CONC 29.7 g/dl (32.0-36.5); MEAN CORPUSCULAR VOLUME 107.5 fl (80.0-96.0); MONO # 0.9 10^3/uL (0.0-0.8); MONO % 7.8 % (2.0-8.0); NEUTROPHILS # 10.4 10^3/uL (1.5-8.5); NEUTROPHILS % 85.7 % (36.0-66.0); PLATELET COUNT, AUTOMATED 217 10^3/uL (150-450); RED BLOOD COUNT 2.94 10^6/uL (4.30-6.10); WHITE BLOOD COUNT 12.1 10^3/uL (4.0-10.0)
[2024-02-04 06:46] LABS: CALCIUM LEVEL 8.7 MG/DL (8.3-10.6); CREATININE FOR GFR 3.18 MG/DL (0.70-1.30); GLOMERULAR FILTRATION RATE 20.7 (>42); POTASSIUM SERUM 3.7 MMOL/L (3.5-5.1)
[2024-02-04] MEDS ORDERED: NS 1,000 ML IV SCH ×2 (07:05→09:35)
[2024-02-04] MEDS ORDERED: ISOVUE-300 61% 100ML VIAL As Ordered ONE (08:03)
[2024-02-04] MEDS ORDERED: LIDOCAINE 1% MDV 20ML VIAL As Ordered ONE (08:03)
[2024-02-04] MEDS ORDERED: fentaNYL 100 MCG/2 ML INJECTION As Ordered ONE (08:46)
[2024-02-04] MEDS ORDERED: MIDAZOLAM INJ 2MG/2ML VIAL As Ordered ONE (08:47)
[2024-02-04] MEDS: cefTRIAXone SOD 2 GM in D5W MINI-BAG PLUS 50 ML IV SCH (10:44)
[2024-02-05 05:08] VITALS: BP 107/72; TEMP 97.2; O2SAT 96
[2024-02-05 06:02] LABS: BASO % 0.4 % (0.0-1.0); EOS # 0.1 10^3/uL (0.0-0.5); EOS % 1.1 % (0.0-3.0); HEMATOCRIT 32.8 % (42.0-52.0); HEMOGLOBIN 9.4 g/dl (13.5-17.5); LYMPH # 0.5 10^3/uL (1.5-5.0); LYMPH % 4.4 % (24.0-44.0); MEAN CORPUSCULAR HEMOGLOBIN 31.5 pg (27.0-33.0); MEAN CORPUSCULAR HGB CONC 28.7 g/dl (32.0-36.5); MEAN CORPUSCULAR VOLUME 110.1 fl (80.0-96.0); MONO # 0.8 10^3/uL (0.0-0.8); MONO % 7.5 % (2.0-8.0); NEUTROPHILS # 8.8 10^3/uL (1.5-8.5); NEUTROPHILS % 84.8 % (36.0-66.0); PLATELET COUNT, AUTOMATED 174 10^3/uL (150-450); RED BLOOD COUNT 2.98 10^6/uL (4.30-6.10); WHITE BLOOD COUNT 10.4 10^3/uL (4.0-10.0)
[2024-02-05 06:10] LABS: PERCENT SATURATION 9.6 % (19.7-50.0)
[2024-02-05 06:11] LABS: CALCIUM LEVEL 8.2 MG/DL (8.3-10.6); CREATININE FOR GFR 2.93 MG/DL (0.70-1.30); GLOMERULAR FILTRATION RATE 22.7 (>42); POTASSIUM SERUM 3.9 MMOL/L (3.5-5.1)
[2024-02-05 06:13] LABS: FERRITIN 382.8 NG/ML (10.5-307.3)
[2024-02-05] MEDS: TORSEMIDE 20 MG TAB PO SCH (09:22)
[2024-02-05 09:24] VITALS: BP 99/60
[2024-02-05] MEDS: FERRIC CARBOXYMALTOSE INJ 750 MG, VIAL MATE ADAPTER 1 EACH in NS 250 ML IV ONE (10:14)
[2024-02-05] MEDS ORDERED: PROB250C PO (10:52)
[2024-02-05] MEDS ORDERED: MIDO10TA PO (10:52)
[2024-02-05] MEDS ORDERED: CEFD1CAP9 PO (10:52)
[2024-02-05 12:00] VITALS: BP 102/60; TEMP 97.9; O2SAT 96
[2024-02-05 12:36] VITALS: BP 96/59; TEMP 98.4; O2SAT 97
[2024-02-05] MEDS ORDERED: METO25TA PO (12:44)
== END 2024-02-05 14:48 | disposition home health service (06) | DRG 291 ==
LOC: M ED 08:18 → M ED INP 14:58 → M MSPAV 16:56
PROVIDERS: ADMIT Internal Medicine; ATTEND Internal Medicine
PROC: B246ZZZ Ultrasonography of Right and Left Heart (ICD-10-PCS; 2024-01-30)
PROC: 30233J1 Transfusion of Nonautologous Serum Albumin into Peripheral Vein, Percutaneous Approach (ICD-10-PCS; principal; 2024-02-01)
PROC: 0W9J30Z Drainage of Pelvic Cavity with Drainage Device, Percutaneous Approach (ICD-10-PCS; 2024-02-02)
PROC: 06H03DZ Insertion of Intraluminal Device into Inferior Vena Cava, Percutaneous Approach (ICD-10-PCS; 2024-02-04)
DX: I13.0 Hypertensive heart and chronic kidney disease with heart failure and stage 1 through stage 4 chronic kidney disease, or unspecified chronic kidney disease (principal); I50.23 Acute on chronic systolic (congestive) heart failure; N18.4 Chronic kidney disease, stage 4 (severe); J90 Pleural effusion, not elsewhere classified; I31.39 Other pericardial effusion (noninflammatory); N17.9 Acute kidney failure, unspecified; L02.219 Cutaneous abscess of trunk, unspecified; B96.20 Unspecified Escherichia coli [E. coli] as the cause of diseases classified elsewhere; R29.6 Repeated falls; I48.91 Unspecified atrial fibrillation; I95.89 Other hypotension; I45.10 Unspecified right bundle-branch block; I08.1 Rheumatic disorders of both mitral and tricuspid valves; I27.20 Pulmonary hypertension, unspecified; G62.9 Polyneuropathy, unspecified; M10.9 Gout, unspecified; I25.10 Atherosclerotic heart disease of native coronary artery without angina pectoris; G89.4 Chronic pain syndrome; K21.9 Gastro-esophageal reflux disease without esophagitis; M54.50 Low back pain, unspecified; W19.XXXA Unspecified fall, initial encounter; Y92.9 Unspecified place or not applicable; Z86.718 Personal history of other venous thrombosis and embolism; E87.5 Hyperkalemia; H93.19 Tinnitus, unspecified ear; N40.0 Benign prostatic hyperplasia without lower urinary tract symptoms; D63.1 Anemia in chronic kidney disease; Z79.82 Long term (current) use of aspirin; Z79.899 Other long term (current) drug therapy; Z88.8 Allergy status to other drugs, medicaments and biological substances; Z95.5 Presence of coronary angioplasty implant and graft

== ENCOUNTER → 2024-02-10 | Outpatient (CLI) | payer MEDICARE, MEDICAID ==
[~2024-02-10] MED LIST changes: +ISOVUE-300 61% 100ML VIAL As Ordered ONE; +LIDOCAINE 1% MDV 20ML VIAL As Ordered ONE; +MIDO10TA PO; +PROB250C PO
[2024-02-10 17:20] VITALS: TEMP 97
[2024-02-10 18:30] VITALS: BP 114/78; O2SAT 97
== END ==
LOC: M RAD 16:38
PROVIDERS: ATTEND Radiology Diagnostic Radiology
DX: L02.211 Cutaneous abscess of abdominal wall (principal); L02.31 Cutaneous abscess of buttock
CPT/HCPCS: 10005; 72192; C1729; Q9967

== ENCOUNTER → 2024-03-04 | Outpatient (REF) | payer MEDICARE, MEDICAID ==
[~2024-03-04] MED LIST changes: -ISOVUE-300 61% 100ML VIAL As Ordered ONE; -LIDOCAINE 1% MDV 20ML VIAL As Ordered ONE
[2024-03-04 18:18] LABS: PERCENT SATURATION 9.7 % (19.7-50.0)
[2024-03-04 18:22] LABS: FERRITIN 563.9 NG/ML (10.5-307.3)
== END ==
LOC: M LAB REF 17:02
PROVIDERS: ATTEND Internal Medicine Nephrology
DX: N18.9 Chronic kidney disease, unspecified (principal); D63.1 Anemia in chronic kidney disease

== ENCOUNTER → 2024-04-14 | Outpatient (REF) | payer MEDICARE, MEDICAID ==
[~2024-04-14] MED LIST changes: +GABA-1172 PO; -GABA-282 PO; -MIDO10TA PO; +MIDO10TA3 PO; -MIDO2.5T PO; +MIDO2.5T3 PO; +NYST1POW3 TOP; -NYST1POW9 TOP
== END ==
LOC: M LAB REF 17:13
PROVIDERS: ATTEND Urology
DX: Z12.5 Encounter for screening for malignant neoplasm of prostate (principal)

== ENCOUNTER 2024-04-29 13:50 | Outpatient (CLI) | payer MEDICARE, MEDICAID ==
[~2024-04-29] VITALS: Ht 177.8 cm; Wt 102.7 kg
[~2024-04-29 13:50] MED LIST changes: +ALBUTEROL SULFATE 2.5MG/0.5ML INH NEB SOLN INH PRN; +EPINEPHrine INJ 1 MG/ML 1ML AMP IM PRN; +NS 1,000 ML IV SCH; +diphenhydrAMINE 50MG/ML VIAL IV PRN; +methylPREDNISolone 125MG 2ML VIAL IV PRN
[2024-04-29 14:00] VITALS: BP 104/67; O2SAT 98
[2024-04-29] MEDS: IRON SUCROSE 200 MG IVP IV ONE (14:11)
[2024-04-29] MEDS ORDERED: IRON SUCROSE 200 MG IVP IV ONE (20:00)
== END 2024-04-29 15:10 ==
LOC: M INFU 13:50
PROVIDERS: ATTEND Internal Medicine Nephrology
DX: E61.1 Iron deficiency (principal); Z88.8 Allergy status to other drugs, medicaments and biological substances
CPT/HCPCS: 96374; J1756

== ENCOUNTER 2024-05-09 14:50 | Outpatient (CLI) | payer MEDICARE, MEDICAID ==
[~2024-05-09] VITALS: Ht 177.8 cm; Wt 104.5 kg
[2024-05-09 14:50] VITALS: BP 118/55; O2SAT 98
[~2024-05-09 14:50] MED LIST changes: -NS 1,000 ML IV SCH
[2024-05-09] MEDS: IRON SUCROSE 200 MG IVP IV ONE (14:53)
[2024-05-09] MEDS ORDERED: NS 1,000 ML IV SCH (15:00)
[2024-05-09 15:35] VITALS: BP 97/63; O2SAT 95
== END 2024-05-09 15:35 ==
LOC: M INFU 14:50
PROVIDERS: ATTEND Internal Medicine Nephrology
DX: E61.1 Iron deficiency (principal); Z88.8 Allergy status to other drugs, medicaments and biological substances
CPT/HCPCS: 96374; J1756

== ENCOUNTER 2024-05-16 14:55 | Outpatient (CLI) | payer MEDICARE, MEDICAID ==
[~2024-05-16] VITALS: Ht 177.8 cm; Wt 106.8 kg
[~2024-05-16 14:55] MED LIST changes: +NS 1,000 ML IV SCH
[2024-05-16] MEDS ORDERED: IRON SUCROSE 200 MG in NS 100 ML IV ONE (15:00)
[2024-05-16 15:14] VITALS: BP 100/61; O2SAT 99
[2024-05-16] MEDS: IRON SUCROSE 200 MG IVP IV ONE (15:27)
[2024-05-16 16:01] VITALS: BP 118/66; O2SAT 94
== END 2024-05-16 16:00 ==
LOC: M INFU 14:55
PROVIDERS: ATTEND Internal Medicine Nephrology
DX: E61.1 Iron deficiency (principal); Z88.8 Allergy status to other drugs, medicaments and biological substances
CPT/HCPCS: 96374; J1756

== ENCOUNTER 2024-05-23 14:59 | Outpatient (CLI) | payer MEDICARE, MEDICAID ==
[~2024-05-23] VITALS: Ht 177.8 cm; Wt 104.5 kg
[~2024-05-23 14:59] MED LIST changes: +NS (Normal Saline) 0.9% 1,000 ML IV SCH; -NS 1,000 ML IV SCH
[2024-05-23 15:10] VITALS: BP 125/74; O2SAT 99
[2024-05-23] MEDS: IRON SUCROSE 200MG IVP IV ONE (15:17)
[2024-05-23 15:59] VITALS: BP 109/71; O2SAT 100
== END 2024-05-23 15:50 ==
LOC: M INFU 14:59
PROVIDERS: ATTEND Internal Medicine Nephrology
DX: E61.1 Iron deficiency (principal); Z88.8 Allergy status to other drugs, medicaments and biological substances
CPT/HCPCS: 96374; J1756

== ENCOUNTER → 2024-05-27 | Outpatient (CLI) | payer MEDICARE, MEDICAID ==
[~2024-05-27] MED LIST changes: -ALBUTEROL SULFATE 2.5MG/0.5ML INH NEB SOLN INH PRN; -EPINEPHrine INJ 1 MG/ML 1ML AMP IM PRN; -NS (Normal Saline) 0.9% 1,000 ML IV SCH; -diphenhydrAMINE 50MG/ML VIAL IV PRN; -methylPREDNISolone 125MG 2ML VIAL IV PRN
[2024-05-27 16:59] LABS: BASO % 0.9 % (0.0-1.0); EOS # 0.2 10^3/uL (0.0-0.5); EOS % 4.6 % (0.0-3.0); HEMATOCRIT 36.7 % (42.0-52.0); HEMOGLOBIN 11.5 g/dl (13.5-17.5); LYMPH # 0.8 10^3/uL (1.5-5.0); LYMPH % 17.8 % (24.0-44.0); MEAN CORPUSCULAR HEMOGLOBIN 34.3 pg (27.0-33.0); MEAN CORPUSCULAR HGB CONC 31.3 g/dl (32.0-36.5); MEAN CORPUSCULAR VOLUME 109.6 fl (80.0-96.0); MONO # 0.4 10^3/uL (0.0-0.8); MONO % 9.4 % (2.0-8.0); NEUTROPHILS # 2.9 10^3/uL (1.5-8.5); NEUTROPHILS % 67.3 % (36.0-66.0); PLATELET COUNT, AUTOMATED 106 10^3/uL (150-450); RED BLOOD COUNT 3.35 10^6/uL (4.30-6.10); WHITE BLOOD COUNT 4.4 10^3/uL (4.0-10.0)
[2024-05-27 17:15] LABS: URIC ACID 7.5 MG/DL (3.7-9.2)
[2024-05-27 17:20] LABS: ALBUMIN 3.7 G/DL (3.2-5.2); BILIRUBIN,TOTAL 0.6 MG/DL (0.3-1.2); CALCIUM LEVEL 9.6 MG/DL (8.3-10.6); CREATININE FOR GFR 3.38 MG/DL (0.70-1.30); GLOMERULAR FILTRATION RATE 19.3 (>42); POTASSIUM SERUM 4.1 MMOL/L (3.5-5.1)
== END ==
LOC: M WUC 13:54
PROVIDERS: ATTEND Internal Medicine
DX: N18.6 End stage renal disease (principal); M10.9 Gout, unspecified

== ENCOUNTER 2024-06-14 13:23 | Outpatient (CLI) | payer MEDICARE, MEDICAID ==
[~2024-06-14] VITALS: Ht 177.8 cm; Wt 108.0 kg
[~2024-06-14 13:23] MED LIST changes: +ALBUTEROL SULFATE 2.5MG/0.5ML INH NEB SOLN INH PRN; -BAYE325T12 PO; +BAYE325T2 PO; +EPINEPHrine INJ 1 MG/ML 1ML AMP IM PRN; +NS (Normal Saline) 0.9% 1,000 ML IV SCH; +diphenhydrAMINE 50MG/ML VIAL IV PRN; +methylPREDNISolone 125MG 2ML VIAL IV PRN
[2024-06-14 13:30] VITALS: BP 119/78; O2SAT 99
[2024-06-14] MEDS: IRON SUCROSE 300 MG in NS 250 ML IV ONE (14:01)
[2024-06-14 15:35] VITALS: BP 109/78; O2SAT 98
[2024-06-14 16:00] VITALS: BP 113/73; O2SAT 93
== END 2024-06-14 16:00 ==
LOC: M INFU 13:23
PROVIDERS: ATTEND Internal Medicine Nephrology
DX: E61.1 Iron deficiency (principal); Z88.8 Allergy status to other drugs, medicaments and biological substances
CPT/HCPCS: 96365; 96366; J1756